=== PATIENT | male | born 1940 | race Caucasian/White ===

== ENCOUNTER → 2023-09-14 10:46 | Outpatient (REF) | payer MEDICARE, OTHER, SELFPAY | LOC: PAVMRI 10:46 | PROVIDERS: FAMILY PHYSICIAN Internal Medicine | DX: M48.062 Spinal stenosis, lumbar region with neurogenic claudication (principal) | CPT/HCPCS: 72158; A9575 ==

== ENCOUNTER → 2023-09-18 07:25 | Outpatient (REF) | payer MEDICARE, OTHER, SELFPAY | LOC: RAD 07:25 | PROVIDERS: ATTENDING PHYSICIAN Surgery Vascular Surgery; FAMILY PHYSICIAN Internal Medicine | DX: I71.40 Abdominal aortic aneurysm, without rupture, unspecified (principal) | CPT/HCPCS: 74174; Q9967 ==

== ENCOUNTER → 2023-09-23 08:53 | Outpatient (REF) | payer MEDICARE, OTHER, SELFPAY | LOC: RAD 08:53 | PROVIDERS: ATTENDING PHYSICIAN Surgery Vascular Surgery | DX: I65.23 Occlusion and stenosis of bilateral carotid arteries (principal) | CPT/HCPCS: 93880 ==

== ENCOUNTER → 2023-10-20 14:18 | Outpatient (REF) | payer MEDICARE, OTHER, SELFPAY | LOC: MRI 3T 14:18 | PROVIDERS: ATTENDING PHYSICIAN Neurological Surgery; FAMILY PHYSICIAN Internal Medicine | DX: M54.12 Radiculopathy, cervical region (principal) | CPT/HCPCS: 72141 ==

== ENCOUNTER → 2023-10-26 13:05 | Outpatient (REF) | payer MEDICARE, OTHER, SELFPAY | LOC: RAD 13:05 | PROVIDERS: ATTENDING PHYSICIAN Surgery Vascular Surgery; FAMILY PHYSICIAN Internal Medicine | DX: I65.29 Occlusion and stenosis of unspecified carotid artery (principal) | CPT/HCPCS: 70496; 70498; Q9967 ==

== ENCOUNTER 2023-12-11 17:17 | Inpatient (IN) | payer MEDICARE, OTHER, SELFPAY ==
[2023-12-11] VITALS (8 sets, daily range): BP systolic 95–164; BP diastolic 59–86; BMI 26.8; BMI 26.9
[2023-12-11 14:51] LABS: Hematocrit 35.9 % (39.0-52.0); INR 1.21; Mean Corp Hgb Conc. 33.4 g/dL (33.0-37.0); Mean Corpuscular Hgb 28.9 pg (27.0-31.0); Mean Corpuscular Volume 86.5 fL (80.0-94.0); PT 15.1 Sec (11.4-14.6); Platelet Count 13 10^3/uL (130-400); Red Blood Cell Count 4.15 10^6/uL (4.70-6.10); White Blood Cell Count 7.7 10^3/uL (4.8-10.8)
--- NOTE | 2023-12-11 15:14 | ED.GENMED ---
History of Present Illness
General
Chief Complaint: Abnormal Lab Value
Source: patient and physician (Dr. Nabil Cabral)
Exam Limitations: none
Time Seen by Provider: 12/11/23 15:14
History of Present Illness
History of Present Illness:
83-year-old male with history of neuropathy, CVA, aortic aneurysm stent on Plavix and aspirin, HLD, HTN, MVP, bilateral carotid artery stenosis, PVD, macular degeneration, skin cancer is sent here by Dr. Cabral for admission for thrombocytopenia.
His last platelet count was 9000. Patient had preoperative studies done for Dr. Ori Leo to do a carotid endarterectomy this coming Thursday however his platelet count came back low he was seen by Dr. Cabral this morning in the office, Dr. Cabral
spoke with the make up editor with [facility] who said she would forward all information to the Dr. Bello who would be on-call this weekend
The make up editor was adamant that the patient needs to be admitted for platelet transfusions and possible IV steroids and possible IV immunoglobulin. He is not actively bleeding, but has large numbers of ecchymosis over his forearms and across his
right flank. Feels that his most likely source of low platelet problem is his hydralazine medication, although he also is taking two other drugs that could be causing this amlodipine and Atorvastatin
Patient denies fever/chills, denies N/V/C/D. Denies chest pain or shortness of breath. He has had increasing bruising mainly of his upper extremities.
Past History
Past History
ED Past Medical History: HTN, Hypercholesterolemia and Other (Neuropathy of both legs)
ED Past Surgical History: Cardiac (Aortic stent 11/2022) and Orthopedic
Social History
Tobacco: Non-smoker
Alcohol: Occasional
Personal:
Living: with family
Review of Systems
Review of Systems
Allergies reviewed?: Yes
All Other Systems: ROS reviewed and negative except as documented in HPI and ROS
Constitutional: Denies fever, fatigue or chills
Respiratory: Denies trouble breathing
Cardiac: Denies chest pain
ABD/GI: Denies abdominal pain, nausea, vomiting, diarrhea, constipated or anorexia
: Denies dysuria or difficulty voiding
Musculoskeletal: Reports no symptoms
Skin: Reports other (Significant bruising both arms)
Neurological: Reports numbness (neuropathy both LE's)
Phy Exam
Physical Exam
Physical Exam:
GENERAL: No acute distress. A&Ox3.
CONSTITUTIONAL: Afebrile.
EYES: clear, conjunctivae normal
Neck: Supple
ENMT: moist mucus membranes, Pharynx nl
RESPIRATORY: Regular respirations, nonlabored, lungs clear.
CARDIOVASCULAR: Regular rate and rhythm, no murmurs, no rubs.
GI: Soft, nontender, normal BS
MUSCULOSKELETAL: Moves with ease. Well perfused.
SKIN: Warm, dry, pink, both arms with significant bruising
PSYCH: Normal mood and affect. Well kept, interactive and appropriate
NEUROLOGIC: Awake, alert and oriented. No focal neurological deficits
Course
Orders/Labs/Results
Orders:
Orders
12/11/23 14:32
Complete Blood Count/With Diff Urgent
Comprehensive Metabolic Panel Urgent
Prothrombin Time Urgent
12/11/23 Dinner
Regular
At Your Request: Full Participation
Does patient need a safe tray?: No
12/11/23 16:10
0.9% Sodium Chloride 1000 ml [Nss] 1,000 ml IV BOLUS
12/11/23 16:17
Consult Hematology [HEMATOLOGY CONSULT] Urgent
Consulting Provider: Theo Bello
Was physician already notified: Yes
Reason for consult: Thrombocytopenia
12/11/23 16:25
Type+Screen Urgent
12/11/23 17:05
Admit/Transfer Patient As Directed
Co-Sign Provider:
Level of Care: Inpatient admission
Assign to:: Medical/Surgical
Physician / Group: rachael
Diagnosis: drug induced ITP
Reason for Hospitalization: drug induced ITP
Expected length of stay greater than two midnights?: Yes
ELOS- Estimated Length of Stay in days: 2
I certify the patient meets the requirements for IP care: Yes
Code Status As Directed
Resuscitation Status: Full Code
12/11/23 17:40
Acetaminophen [Tylenol] 650 mg PO Q6HPRN PRN
Nitroglycerin Sublingual [Nitrostat (Sublingual)] 0.4 mg SL [id number] PRN
Tramadol HCl [Ultram] 50 mg PO DAILYPRN PRN
12/11/23 17:40
Blood Bank Products [* Blood Bank Products] Routine
Blood Bank Products: Platelets Leukoreduced
Quantity: 1
Transfuse Today: Yes
Reason: Thrombocytopenia
VTE Contraindication Routine
VTE Mechanical Device Contraindication: Medical Contraindication
Pharmocologic Contraindication: Medical Contraindication
Activity As Directed
Activity Level: As Tolerated
Vital Signs As Directed
Frequency: Per unit guidelines
12/11/23 20:00
Metoprolol Xl [Toprol Xl] 100 mg PO BID
Vit C/Vit E/Lutein/Min/[place]-3 [Ocuvite Softgel] 1 cap PO BID
12/12/23 06:00
Complete Blood Count/With Diff IN AM
Comprehensive Metabolic Panel IN AM
12/12/23 08:00
Amlodipine [Norvasc] 5 mg PO DAILY
Aspirin Chewable [Low Strength Aspirin] 81 mg PO DAILY
Atorvastatin [Lipitor] 10 mg PO Q48H
Clopidogrel Bisulfate [Plavix] 75 mg PO DAILY
Losartan/Hydrochlorothiazide [Hyzaar 100-25 Tablet] 1 tab PO DAILY
Multivitamin [Theragran] 1 tablet PO DAILY
Abnormal Lab Results
12/11/23
14:32
RBC 4.15 L 10^6/uL
(4.70-6.10)
Hgb 12.0 L g/dL
(13.0-18.0)
Hct 35.9 L %
(39.0-52.0)
Plt Count 13 L* D 10^3/uL
(130-400)
PT 15.1 H Sec
(11.4-14.6)
Chloride 108 H mmol/L
(98-107)
BUN 34 H mg/dl
(9-20)
Glucose 174 H mg/dl
(70-99)
Calcium 10.3 H mg/dl
(8.4-10.2)
12/11/23 14:32
12/11/23 14:32
Vital Signs
Initial and Last Documented VS:
Initial Vital Signs
Temp Pulse Resp BP Pulse Ox
98.9 F 85 17 95/59 97
12/11/23 14:19 12/11/23 14:19 12/11/23 14:19 12/11/23 14:19 12/11/23 14:19
Last Documented Vital Signs
Temp Pulse Resp BP Pulse Ox
97.2 F 61 18 164/86 99
12/11/23 17:43 12/11/23 17:43 12/11/23 17:43 12/11/23 17:43 12/11/23 17:43
MDM/Problems Addressed
Differential Diagnosis Includes:
Thrombocytopenia, medication Side effect,
MDM/Problems Addressed:
83-year-old male with history of neuropathy, CVA, aortic aneurysm stent on Plavix and aspirin, HLD, HTN, MVP, bilateral carotid artery stenosis, PVD, macular degeneration, skin cancer is sent here by Dr. Cabral for admission for thrombocytopenia.
His last platelet count was 9000. Patient had preoperative studies done for Dr. Ori Leo to do a carotid endarterectomy this coming Thursday however his platelet count came back low he was seen by Dr. Cabral this morning in the office, Dr. Cabral
spoke with the make up editor with [facility] who said she would forward all information to the Dr. Bello who would be on-call this weekend
The make up editor was adamant that the patient needs to be admitted for platelet transfusions and possible IV steroids and possible IV immunoglobulin. He is not actively bleeding, but has large numbers of ecchymosis over his forearms and across his
right flank. Feels that his most likely source of low platelet problem is his hydralazine medication, although he also is taking two other drugs that could be causing this amlodipine and Atorvastatin
Patient denies fever/chills, denies N/V/C/D. Denies chest pain or shortness of breath. He has had increasing bruising mainly of his upper extremities.
Afebrile, NAD, very pleasant
CBC: Platelet count 13 from 9 yesterday, was normal on 12/03/2022
CMP: BUN 34, creatinine 1.2, IV fluids ordered
Hospitalist notified of admission. Hematology consult in.
Pt is stable.
Chronic conditions affecting care: HTN
*Critical Care Note
Total Time (30-74mins, 75-104mins- exclusive of procedures): Not Applicable
ED Attending Note
-
Portions of this chart may have been created with voice recognition software.� Occasional wrong word or��sound alike� substitutions may have occurred due to the inherent limitations of voice recognition software.
Discharge Plan
Departure
Patient Disposition: Admit
Date of Disposition: 12/11/23
Time of Disposition: 16:16
Admit to: Med/Surg
Presentation/result/management discussed w/ accepting MD/DO: Hospitalist
Condition: Fair
Discharge Problem:
Thrombocytopenia
Interventions
Interventions:
*Risk Screen - Suicide Last Done: 12/11/23 14:23
*General Assessment Last Done: 12/11/23 14:23
*Neglect/Abuse Screening Last Done: 12/11/23 14:23
ED- Fall Risk Assessment Last Done: 12/11/23 15:47
*ED COVID-19 Vaccine History Last Done: 12/11/23 14:23
*Nursing Disposition Last Done: 12/11/23 17:40
Discharge Date and Time
Discharge Date/Time: 12/11/23 17:40
[2023-12-11 15:17] LABS: ALT (SGPT) 17 U/L (0-50); AST (SGOT) 29 U/L (17-59); Albumin 4.2 g/dl (3.5-5.0); Alkaline Phosphatase 71 U/L (38-126); Blood Urea Nitrogen 34 mg/dl (9-20); Calcium 10.3 mg/dl (8.4-10.2); Carbon Dioxide 24 mmol/L (22-30); Chloride 108 mmol/L (98-107); Glucose 174 mg/dl (70-99); Potassium 3.8 mmol/L (3.5-5.1); Sodium 139 mmol/L (135-145); Total Bilirubin 1.1 mg/dl (0.2-1.3); Total Protein 6.9 g/dl (6.3-8.2); eGFR > 60.00
--- NOTE | 2023-12-11 16:02 | EDRN ---
Monisha JAIMES in room w/pt at this time.
[2023-12-11 16:04] LABS: % Basophils 1.8 % (0-2); % Eosinophils 4.9 % (0-6); % Immature Granulocytes 0.3 % (0-0.5); % Lymphocytes 26.2 % (20.5-51.1); % Monocytes 7.4 % (1.7-9.3); % Neutrophils 59.4 % (42.2-75.2); Absolute Basophils 0.1 10^3/uL (0-0.2); Absolute Eosinophils 0.4 10^3/uL (0-0.7); Absolute Monocytes 0.6 10^3/uL (0.1-0.6); Absolute Neutrophils 4.6 10^3/uL (1.4-6.5); Nucleated Red Blood Cells % 0 % (-)
[2023-12-11] MEDS: NSS 1000 IV (16:26)
--- NOTE | 2023-12-11 17:00 | EDRN ---
Dr. Garza in room w/ pt.
--- NOTE | 2023-12-11 17:08 | HPS.HSE ---
Family Physician
-
Family Physician: Nabil Cortes
Chief Complaint
-
low platelets
History of Present Illness
83-year-old male past medical history of abdominal aortic aneurysm status post aortic stent last year, coronary artery disease, mitral valve prolapse, hypertension, hyperlipidemia, bilateral carotid artery stenosis, lumbar stenosis, macular
degeneration, peripheral neuropathy, peripheral vascular disease, total hip replacement, cataracts, presenting for low platelets outpatient labs.
Patient is undergoing left-sided CEA this upcoming Thursday had preoperative lab work which showed low platelets and he was recommended to come to the hospital. He has been bruising very easily for the past year since starting aspirin and Plavix
after abdominal aortic aneurysm stent was placed last year. He has had minor skin bleeding from cuts but denies any blood in the stool or black stool. He denies any recent illness.
He started hydralazine 6 months ago for blood pressure. That is only new medication. He denies any family history of bone marrow problems. His father had brain cancer and his mother had heart failure.
He denies smoking or alcohol use.
Medical History
Past Medical History
Past Medical History: Reports Other (abdominal aortic aneurysm status post aortic stent last year, coronary artery disease, mitral valve prolapse, hypertension, hyperlipidemia, bilateral carotid artery stenosis, lumbar stenosis, macular
degeneration, peripheral neuropathy, peripheral vascular disease, total hip replacement, cataracts,)
Past Surgical History: Reports Other (Abdominal aortic aneurysm stent, bilateral hip replacement, laminectomy, cataracts,)
Social History
Tobacco: Non-smoker
Alcohol: None
Drug: None
Family History
Family History: Other
Allergies / Home Medications
Allergies reflects when Allergies were last updated in [employer].
Home Medications with original date entered in [employer]
Allergy/Medication List:
Allergies
Allergy/AdvReac Type Severity Reaction Status Date / Time
atorvastatin [From Lipitor] Allergy sore legs Verified 12/07/23 09:23
rosuvastatin [From Crestor] Allergy leg pain Verified 12/07/23 09:23
Home Medications
nitroglycerin 0.4 mg sublingual tablet 0.4 mg sublingual [id number] PRN chest pain #25 tabs 03/11/19
atorvastatin 10 mg tablet 10 mg PO Q48H High Cholesterol 01/03/20
losartan 100 mg-hydrochlorothiazide 25 mg tablet 1 tab PO DAILY Blood Pressure 11/24/22
sthjmnaz-lc-uuonm 300 mcg-K 60 mcg-lycop 600 mcg-lutein 300 mcg tablet (Centrum Silver Men) 1 tab PO DAILY Supplement 11/24/22
aspirin 81 mg chewable tablet 81 mg PO DAILY #90 tabs 12/03/22
clopidogrel 75 mg tablet 75 mg PO DAILY #90 tabs 12/03/22
hydralazine 25 mg tablet 25 mg PO BID 12/07/23
tramadol 50 mg tablet 50 mg PO DAILYPRN PRN severe pain 12/07/23
vit C 250 mg-vit E 90 mg-zinc 40 mg-copper 1 [id number]-[id number] capsule (PreserVision AREDS-2) 1 tab PO BID 12/07/23
acetaminophen 325 mg tablet (Tylenol) 650 mg PO Q6HPRN PRN mild pain 12/11/23
amlodipine 5 mg tablet 5 mg PO DAILY 12/11/23
coenzyme Q10 100 mg capsule (CoQ-10) 100 mg PO Q48H 12/11/23
metoprolol succinate 100 mg tablet,extended release 24 hr 100 mg PO BID 12/11/23
Review of Systems
-
History Source: Patient
A 12 point ROS was completed and negative except as noted: Yes
Constitutional: Reports No Symptoms
EENT: Reports No Symptoms
Respiratory: Reports No Symptoms
Cardiac: Reports No Symptoms
Abdomen/GI: Reports No Symptoms
: Reports No Symptoms
Musculoskeletal: Reports No Symptoms
Skin: Reports See HPI
Neurological: Reports No Symptoms
Endocrine: Reports No Symptoms
Hematologic/Lymphatic: Reports No Symptoms
Psych: Reports No Symptoms
Physical Exam
Vital Signs
Vital Signs
Temp Pulse Resp BP Pulse Ox
98.9 F 63 15 141/85 98
12/11/23 14:19 12/11/23 17:00 12/11/23 17:00 12/11/23 17:00 12/11/23 16:45
Physical Exam
General: Well Developed, Well Nourished and No Apparent Distress
HEENT: NormoCephalic, Moist mucous membranes and Atraumatic
Respiratory: Clear
Cardiac: S1/S2 and Regular Rhythm; No Murmur or Rub
GI: Soft, Non Tender, Non Distended and Normal Bowel Sounds; No Organomegaly
Rectal: Deferred by Provider
Musculoskeletal: No Clubbing, No Cyanosis and No Edema
Skin: No Rash
Neuro: Nonfocal/grossly intact
Laboratory Results
-
12/11/23 14:32
12/11/23 14:32
Laboratory Results
PT 15.1 Sec (11.4-14.6) H 12/11/23 14:32
INR 1.21 12/11/23 14:32
Total Bilirubin 1.1 mg/dl (0.2-1.3) 12/11/23 14:32
AST 29 U/L (17-59) 12/11/23 14:32
ALT 17 U/L (0-50) 12/11/23 14:32
Alkaline Phosphatase 71 U/L (38-126) 12/11/23 14:32
Data Reviewed
-
Lab Data: Labs Reviewed by me
Old Records: Reviewed
Impression/Plan
-
IMPRESSION:
PLAN:
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
-Hold hydralazine
-1 unit platelet transfusion
-Hematology consulted
Abdominal aortic aneurysm status post stent last year
-Continue aspirin, Plavix, statin
Coronary artery disease
-Continue aspirin, Plavix, statin
Mitral valve prolapse
Essential hypertension
-Continue amlodipine, hydralazine, losartan/hydrochlorothiazide, metoprolol
Hyperlipidemia
Bilateral carotid artery stenosis
-Upcoming left-sided CEA this upcoming Thursday
Peripheral vascular disease
Lumbar stenosis
-Continue tramadol
Macular degeneration
Peripheral neuropathy
Cataracts
Full code
DVT prophylaxis�none
Regular diet
[2023-12-11] MEDS: OCUVITE SOFTGEL 1 CAP PO (19:42)
[2023-12-11] MEDS: TOPROL XL 100 MG PO (19:42)
--- NOTE | 2023-12-11 23:52 | PTCARENOTE ---
1 bag of Platelets infused. No reactions noted by patient backup administrator. Patient AAOx3, VSS. Call bee is within reach.
--- NOTE | 2023-12-12 07:29 | CON.ONC ---
Impression
Impression
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
Plan
Plan
Reviewed with patient and his who are very anxious about his severely low platelet count. I explained that this was found incidentally as part of a workup for upcoming surgery and could have been present for many months. There is a good
chance it could be related to hydralazine which was started last April. There is no specific test to prove ITP versus DITP.
My recommendation is to start dexamethasone 40 mg p.o. daily x 4 days starting as an inpatient. I have placed an order for this. He should also be given a PPI for PUD prophylaxis while on steroids.
Hydralazine has been discontinued.
I do not believe the patient requires inpatient monitoring as he has no evidence of critical bleeding and was told about bleeding precautions.
Monitor CBC weekly starting next week. Please give him a standing order prior to discharge.
Do not anticipate his platelet count should improve for approximately 5 to 10 days.
I anticipate patient should be able to be discharged later today with follow-up with his PCP next week as well as with hematology (my group). I gave him our new patient hotline phone number to schedule appointment.
Between dexamethasone and stopping hydralazine there is a good chance his platelet count will start to slowly rise. Obviously left CEA needs to be rescheduled until we know that the platelet count has normalized.
Patient History
History of Present Illness
CC: Thrombocytopenia found unexpectantly on blood test
Family Physician: Nabil Cortes
HPI:
83-year-old male past medical history of abdominal aortic aneurysm status post aortic stent 11/2022 on ASA + Plavix (Dr. Leo) who has chronic bruising since that surgery likely related to aspirin and Plavix. No specific change in his bruising
patterns. He was scheduled for upcoming left CEA this upcoming Thursday had preoperative lab work which showed low platelets = 9,000 he was recommended to come to the hospital. He has had minor skin bleeding from cuts but denies any blood in the
stool or black stool. He denies any recent viral type illness. No previous history of thrombocytopenia. Platelet count was normal as recently as April 2023 per his report. He also was started on hydralazine approximately 6 months ago for
hypertension.
Past-Medical/Surgical History
PMH: AAA s/p stent, coronary artery disease, mitral valve prolapse, hypertension, hyperlipidemia, bilateral carotid artery stenosis, lumbar stenosis, macular degeneration, peripheral neuropathy, peripheral vascular disease, total hip replacement,
cataracts, presenting for low platelets outpatient labs.
PSH: Abdominal aortic aneurysm stent, bilateral hip replacement, laminectomy, cataracts,
Social History
Tobacco: Non-smoker
Alcohol: None
Drug: None
Family History: He denies any family history of bone marrow problems. His father had brain cancer and his mother had heart failure.
Patient Medication
�Medication �Instructions �Recorded �Confirmed �Last Taken �Type
nitroglycerin 0.4 mg sublingual 0.4 mg sublingual [id number] PRN 03/11/19 12/11/23 Unknown Rx
tablet chest pain #25 tabs
atorvastatin 10 mg tablet 10 mg PO Q48H High Cholesterol 01/03/20 12/11/23 12/10/23 History
losartan 100 1 tab PO DAILY Blood Pressure 11/24/22 12/11/23 12/11/23 History
mg-hydrochlorothiazide 25 mg tablet
wsqligdi-fl-cymzp 300 mcg-K 60 1 tab PO DAILY Supplement 11/24/22 12/11/23 12/11/23 History
mcg-lycop 600 mcg-lutein 300 mcg
tablet (Centrum Silver Men)
aspirin 81 mg chewable tablet 81 mg PO DAILY #90 tabs 12/03/22 12/11/23 12/10/23 Rx
clopidogrel 75 mg tablet 75 mg PO DAILY #90 tabs 12/03/22 12/11/23 12/10/23 Rx
hydralazine 25 mg tablet 25 mg PO BID 12/07/23 12/11/23 12/11/23 History
tramadol 50 mg tablet 50 mg PO DAILYPRN PRN severe pain 12/07/23 12/11/23 Unknown History
vit C 250 mg-vit E 90 mg-zinc 40 1 tab PO BID 12/07/23 12/11/23 12/11/23 History
mg-copper 1 [id number]-[id number]
capsule (PreserVision AREDS-2)
acetaminophen 325 mg tablet 650 mg PO Q6HPRN PRN mild pain 12/11/23 12/11/23 Unknown History
(Tylenol)
amlodipine 5 mg tablet 5 mg PO DAILY 12/11/23 12/11/23 12/11/23 History
coenzyme Q10 100 mg capsule 100 mg PO Q48H 12/11/23 12/11/23 12/11/23 History
(CoQ-10)
metoprolol succinate 100 mg 100 mg PO BID 12/11/23 12/11/23 12/11/23 History
tablet,extended release 24 hr
Active Medications
Generic Name Dose Route Start Last Admin
Trade Name Freq PRN Reason Stop Dose Admin
Acetaminophen 650 mg 12/11/23 17:40
Acetaminophen 325 Mg Tablet PO 01/08/24 17:39
Q6HPRN PRN
mild pain
Amlodipine Besylate 5 mg 12/12/23 08:00
Amlodipine 5 Mg Tablet PO 01/09/24 07:59
DAILY DAVID
Aspirin 81 mg 12/12/23 08:00
Aspirin 81 Mg Chewable Tablet PO 01/09/24 07:59
DAILY DAVID
Atorvastatin Calcium 10 mg 12/12/23 08:00
Atorvastatin (Lipitor) 10 Mg Tablet PO 01/09/24 07:59
Q48H DAVID
Clopidogrel Bisulfate 75 mg 12/12/23 08:00
Clopidogrel 75 Mg Tablet PO 01/09/24 07:59
DAILY DAVID
HCTZ/Losartan Potassium 1 tab 12/12/23 08:00
Losartan (100 Mg)/Hydrochlorothiazide (25 Mg) Tablet PO 01/09/24 07:59
DAILY DAVID
Metoprolol Succinate 100 mg 12/11/23 20:00 12/11/23 19:42
Metoprolol 100 Mg Extended Release Tablet PO 01/08/24 19:59 100 mg
BID DAVID Administration
Multivitamins Therapeutic 1 tablet 12/12/23 08:00
Multivitamin Tablet PO 01/09/24 07:59
DAILY DAVID
Nitroglycerin 0.4 mg 12/11/23 17:40
Nitroglycerin 0.4 Mg Sl Tablet SL 01/08/24 17:39
[id number] PRN
chest pain
Sodium Chloride 0 flush 12/11/23 18:00
Sodium Chloride 0.9% (Flush) Syringe IV 01/08/24 17:59
PER PROTOCOL DAVID
Tramadol HCl 50 mg 12/11/23 17:40
Tramadol Hcl 50 Mg Tablet PO 01/08/24 17:39
DAILYPRN PRN
severe pain
Vitamin C/Vitamin E 1 cap 12/11/23 20:00 12/11/23 19:42
Vit C/Vit E/Lutein/Min/[place]-3 (Ocuvite) Capsule PO 01/08/24 19:59 1 cap
BID DAVID Administration
Physical Exam
-
General: Well Developed, Well Nourished and No Apparent Distress
HEENT: Negative Jaundice
Cardiology: S1 and S2
Pulmonary: Clear
GI: Soft
Musculoskeletal: No Edema
Skin: No Ecchymosis (Multiple areas of ecchymosis)
Hematologic / Lymphatic: No Lymphadenopathy
Psych: Anxious
Labs
Lab Results
WBC 7.7 10^3/uL (4.8-10.8) 12/11/23 14:32
RBC 4.15 10^6/uL (4.70-6.10) L 12/11/23 14:32
Hgb 12.0 g/dL (13.0-18.0) L 12/11/23 14:32
Hct 35.9 % (39.0-52.0) L 12/11/23 14:32
MCV 86.5 fL (80.0-94.0) 12/11/23 14:
MCH 28.9 pg (27.0-31.0) 12/11/23 14:
MCHC 33.4 g/dL (33.0-37.0) 12/11/23 14:
RDW 14.0 % (11.5-14.5) 12/11/23 14:
Plt Count 13 10^3/uL (130-400) L* D 12/11/23 14:
MPV fL (7.4-10.4) 12/11/23 14:
Abs Immat Gran (auto) 0.0 10^3/uL (0-0.05) 12/11/23 14:
Absolute Neuts (auto) 4.6 10^3/uL (1.4-6.5) 12/11/23 14:
Absolute Lymphs (auto) 2.0 10^3/uL (1.2-3.4) 12/11/23 14:
Absolute Monos (auto) 0.6 10^3/uL (0.1-0.6) 12/11/23 14:
Absolute Eos (auto) 0.4 10^3/uL (0-0.7) 12/11/23 14:
Absolute Basos (auto) 0.1 10^3/uL (0-0.2) 12/11/23 14:
Immature Gran % 0.3 % (0-0.5) 12/11/23 14:
Neutrophils % 59.4 % (42.2-75.2) 12/11/23 14:
Lymphocytes % 26.2 % (20.5-51.1) 12/11/23 14:
Monocytes % 7.4 % (1.7-9.3) 12/11/23 14:
Eosinophils % 4.9 % (0-6) 12/11/23 14:32
Basophils % 1.8 % (0-2) 12/11/23 14:32
Creatinine 1.2 mg/dL (0.7-1.3) 12/11/23 14:32
Vital Signs
Vital Signs
Temp Pulse Resp BP Pulse Ox
98.3 F 64 20 144/80 97
12/11/23 23:39 12/11/23 23:39 12/11/23 23:39 12/11/23 23:39 12/11/23 23:39
[2023-12-12 07:55] VITALS: BP 139/74
--- NOTE | 2023-12-12 07:59 | W.PN.HOSP.TC ---
Addendum entered and electronically signed by Benedict Day MD 12/12/23 21:31:
Attending Addendum:
I saw and evaluated the patient. I reviewed the resident�s note and agree with findings and plan as documented in the resident�s note. Sub: no complaints. easy brusing, no new bleeding no abd pain fernandez cp, 'im good to go home' Full 12 point ROS
reviewed and negative except as documented Exam: Vitals reviewed in chart GEN-NAD heart RRR lungs clear abd soft LE no edema Skin diffues bruising throughout body. chroninc appearing no gingival bleeding
Plan:
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
-Hold hydralazine
-s/p 1 unit platelet transfusion 13->9 likely from destruction
- no indication for repeat plt trans
- dexamethasone x 4 days and repeat CBC 12/15- script given verified with ONC
- advised to rest and avoid contact related activities
- return to ED STAT if bleeding
- patient expressed understanding
- DC HOME
Abdominal aortic aneurysm status post stent last year
-Continue aspirin, Plavix, statin
Coronary artery disease
-Continue aspirin, Plavix, statin
Mitral valve prolapse
Essential hypertension
-Continue amlodipine, hydralazine, losartan/hydrochlorothiazide, metoprolol
Hyperlipidemia
Bilateral carotid artery stenosis
-Upcoming left-sided CEA this upcoming Thursday
Peripheral vascular disease
Lumbar stenosis
-Continue tramadol
Macular degeneration
Peripheral neuropathy
Cataracts
Full code
DVT prophylaxis�none
Regular diet
Dispo DC home d/w ONC confirmed plan
Time spent coordinating care, DC planning, review of DC plan of care with resident, transition of care, review of records, med rec/scripts sent electronically, consults, notes, d/w consultants, nursing, family, onc and CM� 37 mins
Original Note:
Today's Communication/Plan
-
.
Assessment / Plan
Assessment / Plan
Patient is an 83-year-old male with past medical history of abdominal aortic aneurysm, coronary artery disease, mitral valve prolapse, hypertension, hyperlipidemia, bilateral carotid artery stenosis, lumbar stenosis, macular degeneration, peripheral
neuropathy, peripheral vascular disease, total hip replacement, cataracts presenting for low platelets on lab work.
1. 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
-Hold hydralazine
-1 unit platelet transfused
-Hematology consulted. Input appreciated
- Per hematology, patient started on dexamethasone 40 mg p.o. daily for 4 days. PPI for PUD prophylaxis.
- Script given for OP labs
- follow-up with PCP next week and hematology. Reschedule left CEA for after platelet count has normalized
2. Abdominal aortic aneurysm s/p stent 2022
-Continue aspirin, Plavix, statin
3. Coronary artery disease
-Continue aspirin, Plavix, statin
History of MVP
5. Essential hypertension
-Hydralazine held
-Continue amlodipine, losartan/hydrochlorothiazide, metoprolol
6. Hyperlipidemia
-Continue statin
7. Bilateral carotid artery stenosis
-Upcoming left-sided CEA this coming Thursday
-Reschedule until platelet count normalized per hematology recommendations
History of PVD
8. Lumbar spinal
-Continue tramadol
History of macular degeneration
History of peripheral neuropathy
History of cataracts
Full code
DVT prophylaxis-none
Regular diet
Anticipated Discharge: Today
Subjective/Interval History
-
Date of Service: December 12, 2023
Patient is an 83-year-old male with past medical history of abdominal aortic aneurysm, coronary artery disease, mitral valve prolapse, hypertension, hyperlipidemia, bilateral carotid artery stenosis, lumbar stenosis, macular degeneration, peripheral
neuropathy, peripheral vascular disease, total hip replacement, cataracts presenting for low platelets on lab work. patient reports feeling comfortable today. He reports no symptoms. Noticed shortness of breath, chest pain, nausea, vomiting,
diarrhea, numbness or tingling in extremities or new symptoms.
Objective Data
-
Labs:
Laboratory Results
12/12/23
06:00
WBC Pending
Hgb Pending
Hct Pending
Plt Count Pending
Sodium Pending
Potassium Pending
Chloride Pending
Carbon Dioxide Pending
BUN Pending
Creatinine Pending
Glucose Pending
Calcium Pending
Total Bilirubin Pending
AST Pending
ALT Pending
Alkaline Phosphatase Pending
Vital Signs:
Vital Signs
Temp Pulse Resp BP Pulse Ox
98.3 F 64 20 144/80 97
12/11/23 23:39 12/11/23 23:39 12/11/23 23:39 12/11/23 23:39 12/11/23 23:39
I&O
12/11/23 12/12/23 12/13/23
06:59 06:59 06:59
Intake Total 261 / 1002 741 / 741
Balance 261 / 1002 741 / 741
Review of Systems
-
History Source: Patient
All other systems: Reviewed and negative
Physical Exam
-
General: Well Developed, Well Nourished and No Apparent Distress
HEENT: Normocephalic and Atraumatic
Respiratory: Clear to Auscultation
Cardiac: Regular Rhythm and S1/S2
GI: Soft, Nontender and Nondistended
Musculoskeletal: No Clubbing, No Cyanosis, No Edema and Other (Bruising)
Skin: Warm and Dry
Neuro: Awake and Alert
Psych: Calm
Data Reviewed
-
Total Time Spent with Patient (in minutes): 30
Labs: Labs Reviewed by me and Discussed with Physician
Old Records: Reviewed
[2023-12-12] MEDS: TOPROL XL 100 MG PO (08:36)
[2023-12-12] MEDS: LOW STRENGTH ASPIRIN 81 MG PO (08:36)
[2023-12-12] MEDS: HYZAAR 100-25 TABLET 1 TAB PO (08:36)
[2023-12-12] MEDS: PLAVIX 75 MG PO (08:36)
[2023-12-12] MEDS: OCUVITE SOFTGEL 1 CAP PO (08:36)
[2023-12-12] MEDS: DECADRON 40 MG PO (08:36)
[2023-12-12] MEDS: THERAGRAN 1 TABLET PO (08:36)
[2023-12-12] MEDS: NORVASC 5 MG PO (08:36)
[2023-12-12] MEDS: PROTONIX 40 MG PO (09:09)
[2023-12-12 09:35] LABS: ALT (SGPT) 15 U/L (0-50); AST (SGOT) 25 U/L (17-59); Albumin 3.7 g/dl (3.5-5.0); Alkaline Phosphatase 64 U/L (38-126); Blood Urea Nitrogen 31 mg/dl (9-20); Calcium 9.9 mg/dl (8.4-10.2); Carbon Dioxide 26 mmol/L (22-30); Chloride 108 mmol/L (98-107); Estimated Creatinine Clearance 65 ml/min; Glucose 95 mg/dl (70-99); Potassium 3.7 mmol/L (3.5-5.1); Sodium 138 mmol/L (135-145); Total Bilirubin 0.9 mg/dl (0.2-1.3); Total Protein 6.2 g/dl (6.3-8.2); eGFR > 60.00
[2023-12-12 10:41] LABS: Platelet Count 9 10^3/uL (130-400)
[2023-12-12 11:16] LABS: Red Blood Cell Count 3.88 10^6/uL (4.70-6.10); White Blood Cell Count 5.9 10^3/uL (4.8-10.8)
[2023-12-12 11:17] LABS: Hemoglobin 11.1 g/dL (13.0-18.0); Mean Corpuscular Hgb 28.6 pg (27.0-31.0); Mean Corpuscular Volume 87.6 fL (80.0-94.0)
[2023-12-12 11:18] LABS: Mean Corp Hgb Conc. 32.6 g/dL (33.0-37.0); Red Cell Dist. Width 13.7 % (11.5-14.5)
[2023-12-12 11:20] LABS: % Eosinophils 8.5 % (0-6); % Lymphocytes 25.2 % (20.5-51.1); % Monocytes 11.2 % (1.7-9.3); % Neutrophils 53.1 % (42.2-75.2)
[2023-12-12 11:21] LABS: % Basophils 1.7 % (0-2); % Immature Granulocytes 0.3 % (0-0.5); Absolute Lymphocytes 1.5 10^3/uL (1.2-3.4); Absolute Monocytes 0.7 10^3/uL (0.1-0.6); Absolute Neutrophils 3.1 10^3/uL (1.4-6.5)
[2023-12-12 11:22] LABS: Absolute Basophils 0.1 10^3/uL (0-0.2); Absolute Eosinophils 0.5 10^3/uL (0-0.7); Nucleated Red Blood Cells % 0 % (-)
--- NOTE | 2023-12-12 12:06 | PTCARENOTE ---
Patient educated on bleeding precautions - extra care when walking and being mindful of environment,rying to avoid bumping extremities, using a soft bristle toothbrush and to not strain when having bowel movements. Educated on need to call MD if
acute bleeding noted. Educated on new medications - decadron and protonix. Patient verbalizes understanding of all teaching.
--- NOTE | 2023-12-12 14:05 | PTCARENOTE ---
Peripheral IV removed. Reviewed discharge instructions with patient. Patient verbalizes understanding of all instructions. Patient awaiting his to arrive transport home.
[2023-12-12 14:13] VITALS: BP 160/85
--- NOTE | 2023-12-12 15:27 | CM ---
CM attempted to complete IA this afternoon. Pt was admitted late yesterday, discharged today prior to being seen.
Discharged to home with no needs identified after review with RN.
PCP: Ariel Cortes
Pharmacy: [facility] in [place]
--- NOTE | 2023-12-12 17:33 | W.DCSUMMARY ---
Addendum entered and electronically signed by Benedict Day MD 12/12/23 21:32:
Read, reviewed, and agree. See same day progress note for additional details. DC plan in place and verified with patient at great length.
Félix Day MD
Original Note:
Documented by User: Humberto Kearns DO, Resident 12/12/23 17:43
Discharge Summary
Discharge Data
Date of Admission: 12/11/23
Date of Discharge: 12/12/23
Total time spent discharging patient (in min): 45
-
Pending Results: No
Hospital Course
Patient is an 83-year-old male with past medical history of abdominal aortic aneurysm, coronary artery disease, mitral valve prolapse, hypertension, hyperlipidemia, bilateral carotid artery stenosis, lumbar stenosis, macular degeneration, peripheral
neuropathy, peripheral vascular disease, total hip replacement, cataracts presenting for low platelets on lab work. Low platelet was found during preoperative lab work for left-sided CEA initially scheduled this Thursday. Patient reported he had
been easily bruising for the last year since starting aspirin and Plavix after AAA stent was placed. Patient had recently started hydralazine 6 months ago for blood pressure. Hydralazine was held and 1 unit of platelets was transfused. Per
hematology consultation, patient was started on dexamethasone 40 mg in hospital and PPI prophylaxis for peptic ulcer disease. Recommendations made to continue to monitor CBC outpatient and follow-up with PCP and hematology later next week. Left
CEA to be rescheduled by vascular.
1. 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
-Continue to hold hydralazine. Patient started on dexamethasone 40 mg p.o. daily for 4 days. PPI for PUD prophylaxis.
- Script given for OP labs
- follow-up with PCP next week and hematology. Reschedule left CEA for after platelet count has normalized
2. Abdominal aortic aneurysm s/p stent 2022
-Continue aspirin, Plavix, statin
3. Coronary artery disease
-Continue aspirin, Plavix, statin
History of MVP
5. Essential hypertension
-Hydralazine held
-Continue amlodipine, losartan/hydrochlorothiazide, metoprolol
6. Hyperlipidemia
-Continue statin
7. Bilateral carotid artery stenosis
-Upcoming left-sided CEA this coming Thursday
-Reschedule until platelet count normalized per hematology recommendations
History of PVD
8. Lumbar spinal
-Continue tramadol
History of macular degeneration
History of peripheral neuropathy
History of cataracts
Discharge Plan
-
Patient Disposition: Home (Routine Discharge)
Discharge Diagnosis/Procedures: drug induced ITP
Condition: Fair
Diet: No restrictions
Activity: Other activity
Additional Activity: please be careful with ambulation and bumping into objects until Plt normalizes
Driving Restrictions: As prior to admission
Bathing Restrictions: None
Blood Work: please repeat CBC on Thursday/
Referrals:
Ariel Cortes MD [Family Provider] - in two to three days
Additional Discharge Medication Instructions: please take dexamethasone for 4 days. Please take PPI for at least 4 days, up to 7 days.
Prescriptions:
New
pantoprazole 40 mg Tablet,Delayed Release (Dr/Ec)
40 mg PO DAILY 7 Days Qty: 7 0RF
dexamethasone 20 mg tablet
40 mg PO DAILY 4 Days Qty: 8 0RF
Continued
nitroglycerin 0.4 MG tablet, sublingual
0.4 mg sublingual [id number] PRN (Reason: chest pain) Qty: 25 10RF
atorvastatin 10 MG tablet
10 mg PO Q48H
losartan-hydrochlorothiazide 100-25 mg Tablet
1 tab PO DAILY
Centrum Silver Men [phone] mcg Tablet
1 tab PO DAILY
clopidogrel 75 mg Tablet
75 mg PO DAILY Qty: 90 0RF
aspirin 81 mg Tablet,Chewable
81 mg PO DAILY Qty: 90 0RF
tramadol 50 mg Tablet
50 mg PO DAILYPRN PRN (Reason: severe pain)
PreserVision AREDS-2 250-90-40-1 mg Capsule
1 tab PO BID
acetaminophen [Tylenol] 325 mg Tablet
650 mg PO Q6HPRN PRN (Reason: mild pain)
metoprolol succinate 100 mg Tablet Extended Release 24 Hr
100 mg PO BID
amlodipine 5 mg Tablet
5 mg PO DAILY
coenzyme Q10 [CoQ-10] 100 mg Capsule
100 mg PO Q48H
Patient Comments:
12/11/23: Patient takes on days he does not take Lipitor
Discontinued
hydralazine 25 mg Tablet
25 mg PO BID
Discharge Orders:
Discharge Patient (As Directed); Ordered 12/12/23
Ordered By: Humberto Kearns
Discharge Date and Time
Discharge Date/Time: 12/12/23 14:33
Print Language: OCCITAN

Documented by User: Benedict Day MD 12/12/23 21:25
Discharge Summary
Discharge Data
Date of Admission: 12/11/23
Date of Discharge: 12/12/23
Discharge Plan
-
Patient Disposition: Home (Routine Discharge)
Discharge Diagnosis/Procedures: drug induced ITP
Condition: Fair
Diet: No restrictions
Activity: Other activity
Additional Activity: please be careful with ambulation and bumping into objects until Plt normalizes
Driving Restrictions: As prior to admission
Bathing Restrictions: None
Blood Work: please repeat CBC on Thursday/
Referrals:
Ariel Cortes MD [Family Provider] - in two to three days
Additional Discharge Medication Instructions: please take dexamethasone for 4 days. Please take PPI for at least 4 days, up to 7 days.
Prescriptions:
New
pantoprazole 40 mg Tablet,Delayed Release (Dr/Ec)
40 mg PO DAILY 7 Days Qty: 7 0RF
dexamethasone 20 mg tablet
40 mg PO DAILY 4 Days Qty: 8 0RF
Continued
nitroglycerin 0.4 MG tablet, sublingual
0.4 mg sublingual [id number] PRN (Reason: chest pain) Qty: 25 10RF
atorvastatin 10 MG tablet
10 mg PO Q48H
losartan-hydrochlorothiazide 100-25 mg Tablet
1 tab PO DAILY
Centrum Silver Men [phone] mcg Tablet
1 tab PO DAILY
clopidogrel 75 mg Tablet
75 mg PO DAILY Qty: 90 0RF
aspirin 81 mg Tablet,Chewable
81 mg PO DAILY Qty: 90 0RF
tramadol 50 mg Tablet
50 mg PO DAILYPRN PRN (Reason: severe pain)
PreserVision AREDS-2 250-90-40-1 mg Capsule
1 tab PO BID
acetaminophen [Tylenol] 325 mg Tablet
650 mg PO Q6HPRN PRN (Reason: mild pain)
metoprolol succinate 100 mg Tablet Extended Release 24 Hr
100 mg PO BID
amlodipine 5 mg Tablet
5 mg PO DAILY
coenzyme Q10 [CoQ-10] 100 mg Capsule
100 mg PO Q48H
Patient Comments:
12/11/23: Patient takes on days he does not take Lipitor
Discontinued
hydralazine 25 mg Tablet
25 mg PO BID
Discharge Orders:
Discharge Patient (As Directed); Ordered 12/12/23
Ordered By: Humberto Kearns
Discharge Date and Time
Discharge Date/Time: 12/12/23 14:33
Print Language: OCCITAN
== END 2023-12-12 14:33 | disposition home or self-care (01) | DRG 813 ==
LOC: 4 EAST ACU 17:17
PROVIDERS: Emergency Medicine; ADMITTING PHYSICIAN Hospitalist; ATTENDING PHYSICIAN Family Medicine; CONSULT PHYSICIAN Internal Medicine Hematology & Oncology; EMERGENCY PHYSICIAN Emergency Medicine; FAMILY PHYSICIAN Internal Medicine
PROC: 30233R1 Transfusion of Nonautologous Platelets into Peripheral Vein, Percutaneous Approach (ICD-10-PCS; 2023-12-11)
DX: D69.3 Immune thrombocytopenic purpura (principal); G62.9 Polyneuropathy, unspecified; H35.30 Unspecified macular degeneration; I10 Essential (primary) hypertension; I34.1 Nonrheumatic mitral (valve) prolapse; I65.23 Occlusion and stenosis of bilateral carotid arteries; D69.59 Other secondary thrombocytopenia; I73.9 Peripheral vascular disease, unspecified; I71.9 Aortic aneurysm of unspecified site, without rupture; I25.10 Atherosclerotic heart disease of native coronary artery without angina pectoris; I71.40 Abdominal aortic aneurysm, without rupture, unspecified; M48.061 Spinal stenosis, lumbar region without neurogenic claudication; H26.9 Unspecified cataract; E78.00 Pure hypercholesterolemia, unspecified; Z96.643 Presence of artificial hip joint, bilateral; Z86.73 Personal history of transient ischemic attack (TIA), and cerebral infarction without residual deficits; Z79.82 Long term (current) use of aspirin; Z79.02 Long term (current) use of antithrombotics/antiplatelets; Z85.828 Personal history of other malignant neoplasm of skin; Z86.79 Personal history of other diseases of the circulatory system; Z80.8 Family history of malignant neoplasm of other organs or systems; Z82.49 Family history of ischemic heart disease and other diseases of the circulatory system; Z88.8 Allergy status to other drugs, medicaments and biological substances
CPT/HCPCS: 36415; 71046; 80048; 80053; 85025; 85610; 85730; 86850; 86900; 86901; 87070; 93005; 99285; P9073

== ENCOUNTER 2024-03-18 12:55 | Inpatient (IN) | payer MEDICARE, OTHER, SELFPAY ==
[2024-03-15 09:06] VITALS: BMI 27.8
[2024-03-15 09:26] LABS: % Basophils 1.6 % (0-2); % Eosinophils 6.6 % (0-6); % Immature Granulocytes 1.4 % (0-0.5); % Lymphocytes 22.1 % (20.5-51.1); % Monocytes 9.2 % (1.7-9.3); % Neutrophils 59.1 % (42.2-75.2); Absolute Basophils 0.1 10^3/uL (0-0.2); Absolute Eosinophils 0.5 10^3/uL (0-0.7); Absolute Immature Granulocytes 0.1 10^3/uL (0-0.05); Absolute Lymphocytes 1.5 10^3/uL (1.2-3.4); Absolute Monocytes 0.6 10^3/uL (0.1-0.6); Absolute Neutrophils 4.1 10^3/uL (1.4-6.5); Hematocrit 42.6 % (39.0-52.0); Hemoglobin 14.3 g/dL (13.0-18.0); Mean Corp Hgb Conc. 33.6 g/dL (33.0-37.0); Mean Corpuscular Hgb 28.3 pg (27.0-31.0); Mean Corpuscular Volume 84.2 fL (80.0-94.0); Mean Platelet Volume 8.9 fL (7.4-10.4); Nucleated Red Blood Cells % 0 % (-); Platelet Count 157 10^3/uL (130-400); Red Blood Cell Count 5.06 10^6/uL (4.70-6.10); Red Cell Dist. Width 15.6 % (11.5-14.5)
[2024-03-15 09:39] LABS: APTT 31.2 Sec (23.4-35.0); INR 1.05; PT 13.5 Sec (11.4-14.6)
[2024-03-15 10:34] LABS: Blood Urea Nitrogen 31 mg/dl (9-20); Carbon Dioxide 28 mmol/L (22-30); Chloride 104 mmol/L (98-107); Estimated Creatinine Clearance 72 ml/min; Glucose 107 mg/dl (70-99); Potassium 4.4 mmol/L (3.5-5.1); Sodium 141 mmol/L (135-145); eGFR > 60.00
[2024-03-18] VITALS (15 sets, daily range): BP systolic 118–149; BP diastolic 65–91; BMI 27.1
[2024-03-18] MEDS: PERIDEX 0.12% ORAL RINSE 15 ML PO (07:57)
[2024-03-18] MEDS: BACTROBAN NASAL 1 GRAM NASAL (07:58)
--- NOTE | 2024-03-18 08:32 | W.SUR.PREOP ---
Pre-Operative Surgical Note
-
I have examined this patient prior to the performance of the scheduled procedure.
The patient's condition is unchanged from the time of the current History and
Physical and the patient is able to undergo the scheduled procedure.
[2024-03-18 09:46] LABS: ACT-LR - POC 342 Seconds (116-155)
[2024-03-18 10:23] LABS: ACT-LR - POC 273 Seconds (116-155)
--- NOTE | 2024-03-18 11:10 | W.IMMPOSTOP ---
Surgical Immed Post Op Note
-
Primary Surgeon: Dr. Ori Leo III, MD
Assisting Surgeon: Seun Campos MD, PhD (PGY-2)
Pre-op Diagnosis: Left carotid stenosis
Post-op Diagnosis: Left carotid stenosis
Procedure Performed: Left carotid endarterectomy with bovine patch angioplasty
Anesthesia Type: General
Specimen / Cultures: None
Estimated Blood Loss: 50cc
Complications: None
Operative Findings: The patient was brought to the OR and placed in the supine position. Following anesthesia induction and neuromonitoring, ultrasound was used to map the course of the left common carotid, bifurcation, and internal common carotid.
Incision was made and electrocautery dissection was carried out through the platysma and fascial layers. The carotid sheath was entered and sharp dissection was performed to expose the common carotid artery. Proximal control was obtained with a blue
vessel loop. The dissection was carried out to expose the external and internal carotid arteries and distal control was obtained around these vessels. Arteriotomy was made and a freer was used to perform an endarterectomy. A bovine pericardial patch
was brought to the field and patch angioplasty was performed with running 6-0 suture. Doppler signal was performed and confirmed excellent flow in the internal and external carotid arteries. The wound bed was irrigated and hemostasis achieved. The
tissues were closed in three layers and skin glue on the surface. At the conclusion of the case the patient demonstrated no new neurologic deficits with preserved CN12, facial/upper/lower extremity motor function bilaterally. The patient was
transported to the PACU in stable condition.
--- NOTE | 2024-03-18 11:11 | W.PN.UPDATE ---
Update Note
Progress Note Update
Patient to be admitted post op from carotid endarterectomy. This is NOT an outpatient surgery.
--- NOTE | 2024-03-18 11:12 | OR.RPT ---
Operative Report
Operative Report
Date of Operation: 03/18/2024
Pre Op Diagnosis: Asymptomatic high-grade stenosis left carotid artery
Post Op Diagnosis: Asymptomatic high-grade stenosis left carotid artery
Procedure: LEFT carotid endarterectomy with patch angioplasty using bovine pericardium
Surgeon: Ori Leo III, MD
Medical Administrative Technician: Seun Campos MD PhD, PGY2
Anesthesia: General
Complications: None
History and Indications for Procedure: 83-year-old male with high-grade stenosis of his left carotid artery, asymptomatic
Procedure in Detail: Donte Macedo was correctly identified and placed supine on the operating table. After adequate induction of anesthesia the left neck was positioned, prepped and draped in the usual sterile fashion. Preoperative antibiotics were
administered. A timeout procedure was performed with the nursing and anesthesia staff confirming the patients identity as well as the nature and laterality of the procedure.
The carotid bifurcation was marked with ultrasound at the beginning of the case. The incision was planned accordingly. An incision was made along the anterior border of the left sternocleidomastoid muscle. Electrocautery was used to divide the
subcutaneous tissue and platysma. The carotid sheath was entered with sharp dissection. The internal jugular vein was retracted laterally. The vagus nerve was identified and protected throughout the case. The common carotid artery was identified at
the base of this incision and carefully encircled with a vessel loop. The patient was systemically heparinized. The dissection was continued distally towards the carotid bifurcation. The facial vein was skeletonized, ligated and divided between ties
and clips. The proximal external carotid artery was encircled with a vessel loop. The distal internal carotid artery was encircled with a vessel loop at a soft spot on the artery beyond the plaque.
The internal vessel loop was secured followed by the common and external. An arteriotomy was made on the distal common carotid artery with an 11-blade. This was extended proximally and distally with Almanza scissors. The arteriotomy was extended
distally through the plaque to an area of normal appearing internal carotid artery. The distal vessel loop was replaced with a short tip hockey-stick type vascular clamp. An endarterectomy was performed with a Oxford elevator in the standard
fashion. The proximal extent of the plaque was transected with scissors. The distal end of the plaque in the internal carotid artery feathered very nicely with no distal intimal flap identified. The plaque extending into the external carotid artery
was everted. Once the plaque was fully removed the endarterectomy plane was irrigated with heparinized saline and any loose fronds of tissue were removed. A pre-cut piece of bovine pericardium was sewn in place using a running 6-0 Prolene suture.
Prior to the completion of the patch the common carotid was allowed to forward bleed and the external was allowed to back bleed. The area under the patch was irrigated with heparinized saline to remove any potential thrombus or debris. The
anastomosis was completed.
The external vessel loop was released first, followed by the common and then the internal. There was an excellent pulse in the distal internal carotid artery. An excellent quality Doppler signal in the distal internal carotid artery was also
confirmed. The patch suture line was closely inspected for hemostasis and was achieved. Protamine was administered. Hemostasis was achieved in the wound bed. The wound was irrigated with saline solution.
The wound was then closed in layers. Sterile dressings were applied. The patient awoke from anesthesia with no immediate neuro deficits and was taken to the PACU in stable condition.
Attestation: I was present and responsible for the entire procedure
Signed:
Ori Leo III, MD
[facility] Vascular Surgery
[phone] (juce)
[2024-03-18 12:06] LABS: Blood Urea Nitrogen 27 mg/dl (9-20); Calcium 9.3 mg/dl (8.4-10.2); Carbon Dioxide 26 mmol/L (22-30); Chloride 106 mmol/L (98-107); Estimated Creatinine Clearance 72 ml/min; Glucose 126 mg/dl (70-99); Sodium 141 mmol/L (135-145); eGFR > 60.00
[2024-03-18 12:40] LABS: Hematocrit 36.4 % (39.0-52.0); Hemoglobin 12.5 g/dL (13.0-18.0); Mean Corp Hgb Conc. 34.3 g/dL (33.0-37.0); Mean Corpuscular Hgb 28.7 pg (27.0-31.0); Mean Corpuscular Volume 83.7 fL (80.0-94.0); Mean Platelet Volume 9.4 fL (7.4-10.4); Platelet Count 116 10^3/uL (130-400); Red Blood Cell Count 4.35 10^6/uL (4.70-6.10); Red Cell Dist. Width 15.6 % (11.5-14.5)
[2024-03-18] MEDS: ROXICODONE 5 MG PO (13:24)
[2024-03-18] MEDS: NSS 1000 IV ×2 (13:30→23:07)
--- NOTE | 2024-03-18 13:30 | PTCARENOTE ---
Pt arrived via bed from PACU into Rm [id number] at 1245. Pt AAOx3 on arrival. MAEW. Following commands appropriately. Lt neck incision noted- well approximated, no edema, no ecchymosis. Ice pack to site x20min q2hr. Pt's smile symmetrical, tongue midline,
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 Pt left foot strength slightly less than Rt. Per pt this his 'normal' for him due to 'neuropathy' and following TIA in the past. Pt reports using a cane at times to ambulate. Lt radial [place] transduced, leveled, and
zero-balanced. Waveform wnl. Pt on RA w/ POx 98-99%. Denies SOB. Reports 11/17 'ache' to Lt neck- medicated as requested by pt. Physical assessment and admissions questions completed as documented. Orientation to room/ICU/plan of care/use of call
cristal provided to pt. Pt's to room to visit pt- updated on pt's present condition and plan of care. Call cristal w/in pt reach and safe environment maintained.
--- NOTE | 2024-03-18 15:34 | PTCARENOTE ---
Pt attempted to void- 25ml output. Bladder scan completed= 595ml. TT to Trini JAIMES and order for straight cath received. Pt straight cath completed for 650ml clear gigi urine. Pt tolerated well. Dr Leo in to see pt. No new orders received. Pt
requesting quietly- tolerated advanced diet and currently napping for intervals.
--- NOTE | 2024-03-18 15:55 | CON.INTV ---
Consultation
Consultation Request
Date/Time Consultation Requested: 03/18/2024
Date/Time Consultation Performed: 03/18/2020
Requesting Provider: Dr. Leo
Performing Provider: Dr. Lukasz Singer
Reason for Consultation: Left carotic endarterectomy
Medical History
-
History of Present Illness:
83-year-old man with past medical history significant for hypertension, hyperlipidemia, bilateral carotid stenosis, abdominal aortic aneurysm. Admitted to hospital for carotid revascularization. Underwent left carotid endarterectomy on 03/18/[address] Leo.
Currently in the critical care unit for hemodynamic and neurological monitoring.
Patient denies any stridor.
Pain is controlled.
Denies any headache or blurry vision.
Past Medical History
Past Medical History: Other (See assessment and plan)
Social History
Tobacco: Former Smoker (Less than 5-pack-year quit 40 years ago)
Alcohol: None
Drug: None
Family History
Family History: Reviewed & Not Pertinent
Allergies / Home Medications
Allergies
Allergy/AdvReac Type Severity Reaction Status Date / Time
rosuvastatin [From Crestor] Allergy Myalgia Verified 03/18/24 08:31
atorvastatin [From Lipitor] AdvReac Myalgia Verified 03/18/24 08:30
Home Medications
�Medication �Instructions �Recorded �Confirmed �Last Taken �Type
nitroglycerin 0.4 mg sublingual 0.4 mg sublingual [id number] PRN 03/11/19 03/18/24 Unknown Rx
tablet chest pain #25 tabs
losartan 100 1 tab PO DAILY Blood Pressure 11/24/22 03/18/24 03/18/24 05:30 History
mg-hydrochlorothiazide 25 mg tablet
vimtdnls-sc-uryuo 300 mcg-K 60 1 tab PO DAILY Supplement 11/24/22 03/18/24 03/17/24 08:00 History
mcg-lycop 600 mcg-lutein 300 mcg
tablet (Centrum Silver Men)
aspirin 81 mg chewable tablet 81 mg PO DAILY #90 tabs 12/03/22 03/18/24 03/17/24 08:00 Rx
clopidogrel 75 mg tablet 75 mg PO DAILY #90 tabs 12/03/22 03/18/24 03/17/24 08:00 Rx
tramadol 50 mg tablet 50 mg PO DAILYPRN PRN severe pain 12/07/23 03/18/24 Unknown History
vit C 250 mg-vit E 90 mg-zinc 40 1 tab PO BID Supplement 12/07/23 03/18/24 03/18/24 05:30 History
mg-copper 1 mk-hebdge-eznotv
capsule (PreserVision AREDS-2)
acetaminophen 325 mg tablet 650 mg PO Q6HPRN PRN mild pain 12/11/23 03/18/24 03/17/24 08:00 History
(Tylenol)
amlodipine 5 mg tablet 5 mg PO DAILY Blood Pressure 12/11/23 03/18/24 03/17/24 08:00 History
coenzyme Q10 100 mg capsule 100 mg PO DAILY Supplement 12/11/23 03/18/24 03/17/24 08:00 History
(CoQ-10)
metoprolol succinate 100 mg 100 mg PO BID Blood Pressure 12/11/23 03/18/24 03/18/24 05:30 History
tablet,extended release 24 hr
atorvastatin 10 mg tablet 10 mg PO DAILY High Cholesterol 03/18/24 03/18/24 Unknown History
Review of Systems
-
History Source: Patient
All other systems: Negative unless noted
Vitals / Labs / Diagnostic Testing
Vital Signs
Temp Pulse Resp BP Pulse Ox
98.0 F 67 19 143/78 99
03/18/24 15:51 03/18/24 15:30 03/18/24 15:30 03/18/24 15:00 03/18/24 15:50
Lab Data
03/18/24 11:33
03/18/24 11:33
Diagnostic Testing:
Physical Exam
-
HEENT: Normocephalic and Other (Cervical incision intact, no hematoma. No stridor on exam.)
Cardiovascular: S1/S2
Respiratory: Clear and Non-Labored Respirations
GI: Soft and Non Distended
Neurology: Awake, Oriented, AO x 3 and No Motor Deficits
Skin: Warm
General: Comfortable
Assessment
-
Status post left carotid endarterectomy-Dr. Leo 03/18/2024
-
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
AAA s/p aortic stent graft repair 12/02/22
Essential hypertension
Abdominal aortic aneurysm
Bilateral carotid disease
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
Hyperlipidemia, w/ statin intolerance
Thoracic neuralgia�
Atherosclerosis of both carotid arteries
Liver hemangioma�
Osteoarthritis
Balance disorder
Spinal stenosis, lumbar�s/p L2-4 lumbar laminectomy 01/04/20
Mild aortic stenosis�
Assessment and plan:
Postoperative day 0
Continue observation following procedure
Follow neurovascular checks per protocol
Follow BP monitoring and parameters as set by primary team
Continue to monitor on telemetry
Nicardipine drip will be used if necessary.
Restart outpatient antihypertensive
Pain control per protocol
No prior history of pulmonary disease, smoking hx includes < 5 pack years
CXR 12/10/2023 reviewed, no acute disease
Encouraged IS
Diet advancement per protocol
Aspiration precautions
GI prophylaxis if indicated for stress ulcer prevention in the critically ill
Creat at baseline, follow UO
Void trials
Replete electrolytes as needed
DVT prophylaxis -heparin drip
Encouraged OOB/PT/OT/ambulation once cleared by surgical team
We will follow
[2024-03-18] MEDS: HEPARIN 5000 UNITS SC ×2 (17:15→23:07)
--- NOTE | 2024-03-18 18:38 | PTCARENOTE ---
Pt continues to rest quietly, returned to bedside. Pt tolerating diet. No new complaints. Neuro unchanged since arrival from PACU. Incision appearance w/ small amount of ecchymosis- unchanged since 1330. Ice applied to site q2hr x 20 min.
--- NOTE | 2024-03-18 19:30 | PTCARENOTE ---
Received patient at 1900. Pt. currently in bed. Awake, alert, and oriented. Denies pain/discomfort at this time. Afebrile. Heart rhythm sinus. Currently on room air. Lungs sound diminished. PO diet ordered, good appetite. Pt. unable to void earlier,
straight cath was needed. Due to void. Skin as documented. Discussed plan of care. Vital signs stable at this time.
[2024-03-18] MEDS: TOPROL XL 100 MG PO (19:42)
[2024-03-18] MEDS: OCUVITE SOFTGEL 1 CAP PO (19:42)
[2024-03-18] MEDS: CARDENE 200 IV (20:39)
[2024-03-19] VITALS (11 sets, daily range): BP systolic 117–156; BP diastolic 71–94; BMI 27.6
--- NOTE | 2024-03-19 00:10 | PTCARENOTE ---
Pt. with sustained hypertension with SBP 190s. Cardene gtt started at minimal dose. SBP down to 120s. Cardene currently off. Vital signs stable at this time.
[2024-03-19 03:21] LABS: INR 1.09; PT 14.4 Sec (11.4-14.6)
[2024-03-19 03:22] LABS: APTT 32.8 Sec (23.4-35.0); Hematocrit 36.5 % (39.0-52.0); Hemoglobin 12.6 g/dL (13.0-18.0); Mean Corp Hgb Conc. 34.5 g/dL (33.0-37.0); Mean Corpuscular Hgb 28.1 pg (27.0-31.0); Mean Corpuscular Volume 81.3 fL (80.0-94.0); Mean Platelet Volume 9.2 fL (7.4-10.4); Platelet Count 162 10^3/uL (130-400); Red Blood Cell Count 4.49 10^6/uL (4.70-6.10); Red Cell Dist. Width 15.5 % (11.5-14.5); White Blood Cell Count 9.3 10^3/uL (4.8-10.8)
--- NOTE | 2024-03-19 03:30 | PTCARENOTE ---
Pt. assessment unchanged. AM labs drawn. Vital signs stable at this time.
[2024-03-19 03:43] LABS: Blood Urea Nitrogen 23 mg/dl (9-20); Calcium 9.7 mg/dl (8.4-10.2); Carbon Dioxide 24 mmol/L (22-30); Chloride 104 mmol/L (98-107); Estimated Creatinine Clearance 82 ml/min; Glucose 126 mg/dl (70-99); Potassium 4.2 mmol/L (3.5-5.1); Sodium 138 mmol/L (135-145); eGFR > 60.00
[2024-03-19] MEDS: THERAGRAN 1 TABLET PO (07:33)
[2024-03-19] MEDS: TOPROL XL 100 MG PO (07:33)
[2024-03-19] MEDS: OCUVITE SOFTGEL 1 CAP PO (07:33)
[2024-03-19] MEDS: LOW STRENGTH ASPIRIN 81 MG PO (07:33)
[2024-03-19] MEDS: PLAVIX 75 MG PO (07:33)
[2024-03-19] MEDS: NORVASC 5 MG PO (07:34)
[2024-03-19] MEDS: HYZAAR 100-25 TABLET 1 TAB PO (07:34)
[2024-03-19] MEDS: HEPARIN 5000 UNITS SC (07:35)
--- NOTE | 2024-03-19 08:25 | W.PN.VS ---
Today's Communication / Plan
-
POD 1 L CEA
- mobilize
- HAILY
- lines out
- home meds and follow BP
- if SBP 100-140 can D/C home
Assessment/Plan
-
POD 1 L CEA
- mobilize
- HAILY
- lines out
- home meds and follow BP
- if SBP 100-140 can D/C home
Subjective Data
-
Date of Service: March 19, 2024
POD 1 L CEA
no headache
no swallowing difficulties
voiding
SBP 150-160s pre-home meds
no focal deficits
Objective Data
-
Vital Signs
Temp Pulse Resp BP Pulse Ox
97.8 F 60 11 130/107 92
03/19/24 07:00 03/19/24 07:33 03/19/24 06:00 03/19/24 07:33 03/19/24 06:00
Intake and Output
03/18/24 03/19/24 03/20/24
06:59 06:59 06:59
Intake Total 2397.5 / 2397.5 0 / 0
Output Total 1870 / 1870 0 / 0
Balance 527.5 / 527.5 0 / 0
Intake:
Oral fluids 920 / 920
IV fluids (Total) 1477.5 / 1477.5 0 / 0
Cardene 37.5 / 37.5
Nss 1,000 ml @ 80 mls/hr IV . 1440 / 1440 0 / 0
[id number] DAVID Rx#:[id number]
Output:
Urine, Voided 1220 / 1220 0 / 0
Straight cath output 650 / 650
Lab Results
03/19/24 03:01
03/19/24 03:01
Calcium 9.7 mg/dl (8.4-10.2) 03/19/24 03:01
Physical Exam
-
neck soft
smile equal
tongue midline
strength 5/5 in all 4
--- NOTE | 2024-03-19 08:37 | W.PN.INTV ---
Today's Communication / Plan
Recommendations
Continue antihypertensive
Discontinue arterial line
Increase mobility
Hopeful discharge later today
Signed off
Assessment
-
Status post left carotid endarterectomy-Dr. Leo 03/18/2024
-
Conditions present [employer]
AAA s/p aortic stent graft repair 12/02/22
Essential hypertension
Abdominal aortic aneurysm
Bilateral carotid disease
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
Hyperlipidemia, w/ statin intolerance
Thoracic neuralgia�
Atherosclerosis of both carotid arteries
Liver hemangioma�
Osteoarthritis
Balance disorder
Spinal stenosis, lumbar�s/p L2-4 lumbar laminectomy 01/04/20
Mild aortic stenosis�
Assessment and plan:
Postoperative day 1
Hemodynamically and neurologically intact.
Vascular correspondence reviewed likely discharge later today if blood pressure is in range
Hypertensive but asymptomatic
Cardene drip has been discontinued
Restart outpatient oral antihypertensives
Discontinue arterial line
Increase activity as able
Pain is controlled
Incision is intact without hematoma
Tolerating diet
Aspiration precautions
DVT prophylaxis -heparin drip
Encouraged OOB/PT/OT/ambulation once cleared by surgical team
Continue postoperative care
Discharge planning
Signed off
Subjective Dataa
Subjective Data
Date of Service:
Date of Service: March 19, 2024
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
Subjective:
Patient denies headache or blurry vision
Denies nausea or vomiting
Denies any pain
Review of Systems
Cardiopulmonary: Dyspnea (n) and Cough (n)
GI: Abdominal Pain (n) and Nausea (n)
Neuro: Headache (n)
Objective Data
Data Reviewed
Vital Signs / I&O / Oxygen:
Vital Signs
Temp Pulse Resp BP Pulse Ox
97.8 F 60 11 130/107 92
03/19/24 07:00 03/19/24 07:33 03/19/24 06:00 03/19/24 07:33 03/19/24 06:00
Intake and Output
03/18/24 03/19/24 03/20/24
06:59 06:59 06:59
Intake Total 2397.5 / 2397.5 0 / 0
Output Total 1870 / 1870 200 / 200
Balance 527.5 / 527.5 -200 / -200
SaO2 92
Physical Exam
General: Comfortable
HEENT: Normocephalic
Cardiovascular: S1-S2
Respiratory: Non-Labored Respirations
GI: Soft and Non Distended
Neurology: Awake, Oriented, AO x 3 and No Motor Deficits
Skin: Warm
Labs/Micro/Reports
Lab Data
03/19/24 03:01
03/19/24 03:01
Laboratory Results
03/19/24
03:01
PT 14.4
INR 1.09
APTT 32.8
--- NOTE | 2024-03-19 10:22 | PTCARENOTE ---
Pt awake and alert. Ephraim removed, no hematoma. pressure dressing applied. minimal assist to the bathroom. toileting and hygiene. OOB to chair. Offers no complaints, CB in reach. No change in assessment.
--- NOTE | 2024-03-19 11:33 | PTCARENOTE ---
d/w attending continue with d/c. BP WNL. reviewed D/C medications. OOB to chair family at bedside.
== END 2024-03-19 12:38 | disposition home or self-care (01) | DRG 39 ==
LOC: ICU 12:55
PROVIDERS: Nurse Practitioner; ADMITTING PHYSICIAN Surgery Vascular Surgery; CONSULT PHYSICIAN Internal Medicine Critical Care Medicine; FAMILY PHYSICIAN Nurse Practitioner Adult Health
PROC: 03UL0KZ Supplement Left Internal Carotid Artery with Nonautologous Tissue Substitute, Open Approach (ICD-10-PCS; 2024-03-18)
PROC: 03CJ0ZZ Extirpation of Matter from Left Common Carotid Artery, Open Approach (ICD-10-PCS; 2024-03-18)
DX: I65.23 Occlusion and stenosis of bilateral carotid arteries (principal); D69.6 Thrombocytopenia, unspecified; I71.40 Abdominal aortic aneurysm, without rupture, unspecified; I10 Essential (primary) hypertension; D18.03 Hemangioma of intra-abdominal structures; E78.5 Hyperlipidemia, unspecified; M48.061 Spinal stenosis, lumbar region without neurogenic claudication; M19.90 Unspecified osteoarthritis, unspecified site; Z87.891 Personal history of nicotine dependence
CPT/HCPCS: 88304; 88311; 35301; 36415; 80048; 85025; 85027; 85610; 85730; 95938; 95941; 95955

== ENCOUNTER → 2024-04-11 11:16 | Outpatient (REF) | payer MEDICARE, OTHER, SELFPAY | LOC: RAD 11:16 | PROVIDERS: ATTENDING PHYSICIAN Registered Nurse; FAMILY PHYSICIAN Internal Medicine | DX: I65.29 Occlusion and stenosis of unspecified carotid artery (principal); I65.23 Occlusion and stenosis of bilateral carotid arteries | CPT/HCPCS: 93880 ==

== ENCOUNTER → 2024-10-21 15:20 | Outpatient (REF) | payer MEDICARE, OTHER, SELFPAY | LOC: RAD 15:20 | PROVIDERS: ATTENDING PHYSICIAN Surgery Vascular Surgery; FAMILY PHYSICIAN Internal Medicine | DX: I71.40 Abdominal aortic aneurysm, without rupture, unspecified (principal); I65.23 Occlusion and stenosis of bilateral carotid arteries | CPT/HCPCS: 76770; 93880 ==

== ENCOUNTER 2024-10-24 11:53 | Inpatient (IN) | payer MEDICARE, OTHER, SELFPAY ==
[2024-10-22 23:49] VITALS: BP 173/91
[2024-10-23] VITALS (12 sets, daily range): BP systolic 136–172; BP diastolic 78–94; PULSE 50; O2SAT 95–97; BMI 27.9; BMI 27.1
[2024-10-23 00:12] LABS: % Basophils 0.1 % (0-2); % Immature Granulocytes 0.3 % (0-0.5); % Lymphocytes 8.1 % (20.5-51.1); % Monocytes 7.6 % (1.7-9.3); % Neutrophils 83.9 % (42.2-75.2); Absolute Lymphocytes 1.1 10^3/uL (1.2-3.4); Absolute Neutrophils 11.4 10^3/uL (1.4-6.5); Hematocrit 41.3 % (39.0-52.0); Hemoglobin 14.1 g/dL (13.0-18.0); Mean Corp Hgb Conc. 34.1 g/dL (33.0-37.0); Mean Corpuscular Hgb 29.6 pg (27.0-31.0); Mean Corpuscular Volume 86.8 fL (80.0-94.0); Mean Platelet Volume 9.5 fL (7.4-10.4); Nucleated Red Blood Cells % 0 % (-); Platelet Count 173 10^3/uL (130-400); Red Blood Cell Count 4.76 10^6/uL (4.70-6.10); Red Cell Dist. Width 13.7 % (11.5-14.5); White Blood Cell Count 13.6 10^3/uL (4.8-10.8)
[2024-10-23 00:29] LABS: ALT (SGPT) 20 U/L (0-50); AST (SGOT) 27 U/L (17-59); Albumin 4.4 g/dl (3.5-5.0); Alkaline Phosphatase 68 U/L (38-126); Blood Urea Nitrogen 33 mg/dl (9-20); Calcium 10.5 mg/dl (8.4-10.2); Carbon Dioxide 27 mmol/L (22-30); Chloride 106 mmol/L (98-107); Glucose 137 mg/dl (70-99); Potassium 4.2 mmol/L (3.5-5.1); Sodium 140 mmol/L (135-145); Total Bilirubin 0.9 mg/dl (0.2-1.3); Total Protein 7.4 g/dl (6.3-8.2); eGFR > 60.00
--- NOTE | 2024-10-23 01:57 | ED.GENMED ---
History of Present Illness
General
Chief Complaint: Gait Dysfunction
Source: patient and family
Exam Limitations: none
Time Seen by Provider: 10/23/24 01:16
Nursing documentation reviewed up to this point in time: agreed with
History of Present Illness
History of Present Illness:
Note:
CHIEF COMPLAINT(S)
Weakness in the right arm, right hand, and right leg with tingling and loss of strength. Recent episode of slurred speech.
HISTORY OF PRESENT ILLNESS
The patient is an 84-year-old male with a history of previous laminectomy performed in 2019 at [facility] to address back pain, resulting in neuropathy in the legs. The patient reported manageable weakness and balance issues post-surgery. The patient
also has a history of an aortic aneurysm repair. Recently, the patient spent 10 days on vacation in [place], involving prolonged sitting, which may have exacerbated symptoms. Since returning, there has been a progression of previous balance and
mobility issues, specifically loss of feeling and strength in the right leg and arm. The patient reported that symptoms, including the weakness, were noted to worsen in the evenings, attributing it to fatigue but had been managing to use a cane for
mobility. Last night, the patient could not walk up the stairs and had to crawl due to severe weakness.
The significant change of having weakness in the right leg, arm, and hand was noticed since yesterday, Thursday. Additionally, there were difficulties holding a fork and other fine motor tasks with the right hand. On the same day, there was a brief
episode of slurred speech reported by the patients spouse around 7 PM, lasting approximately a couple of hours, with slight garbling noted by the patient himself. The slurred speech resolved, but difficulty in executing tasks like putting sunglasses
on persisted till later in the evening but improved slightly by noon today. This episodic weakness and loss of function are atypical for the patient.
The patients history includes consultations with a physician who previously attributed leg symptoms to back issues. Despite occasional use of a cane, the patient required a walker starting yesterday for ambulation. Additional symptoms include no
reported fevers, chills, chest pain, or shortness of breath.
ADDITIONAL HISTORY OBTAINED FROM SOURCES OTHER THAN THE PATIENT
Per the patient's spouse: The patient experienced weakness on the right side as recently as one hour before this examination. The spouse noted episodes of slurred speech around 7 PM. Additionally, there were difficulties with tasks requiring fine
motor skills, such as handling a fork during dinner on the same evening. The patient reports that all symptoms have resolved at this time.
PHYSICAL EXAM
- Nursing notes reviewed and vital signs reviewed.
- Neurological: Observable weakness in the right side, including extremities. Episodic difficulty was noted with fine motor skills in the right hand.
PROBLEM LIST
Acute Problems:
- Right-sided weakness
- Episodic slurred speech
Chronic Problems:
- Neuropathy in the legs
- Balance issues
PLAN
- Immediate stroke work-up, including a specialized CAT scan, considering the possibility of an acute stroke particularly involving posterior circulation.
- Stroke alert initiated to facilitate immediate evaluation and transfer to a hospital setting for further management.
- Further evaluation for potential cryptogenic stroke if imaging findings correlate with symptoms.
DIFFERENTIAL DIAGNOSIS
The Differential Diagnosis includes, in no particular order and is not limited to:
- Posterior circulation stroke
- Transient ischemic attack
- Peripheral neuropathy exacerbation
- Multiple sclerosis exacerbation
- Cervical myelopathy
- Migraine with neurological deficit
- [place] palsy with atypical presentation
- Spinal cord compression
- Amyotrophic lateral sclerosis
- Diabetic amyotrophy
CARE-UPDATE
10/23/24 - 01:50
Stroke alert initiated at 1:45 a.m. following an episode of slurred speech reported by the patients , occurring within the previous hour. Current NIHSS is assessed at 0, indicating no detectable neurological deficits at this time.
CARE-UPDATE
10/23/24 - 01:55
The patient presented with intermittent slurring of speech, now resolved, which may indicate a precursor to a more significant event. A plain CT scan of the head, a CT angiogram of the head and neck vessels, and a perfusion scan will be conducted to
assess for potential clots or other issues, which might require intervention or transfer to another facility. The patient will be admitted for continued observation and will undergo further neurological evaluation, including an MRI, with a
neurologist consultation scheduled for the following day. This approach is necessary due to the recent onset and frequency of the symptoms, raising concern for a potentially escalating condition.
CARE-UPDATE
10/23/24 - 02:07
Patient is currently on blood thinners, due to a history of artery-related issues and a prior abdominal aortic aneurysm (AAA) surgery that occurred three years ago. Notably, he also had a heart attack in the past, which was discovered incidentally
during a routine check-up, though he had no prior awareness of it. Recently, there is a significant concern regarding his mobility and balance. Despite being generally active for his age, his ability to walk has been severely compromised; an episode
in [place] revealed marked instability requiring him to grasp onto a car door to prevent a fall. Moreover, he struggled significantly with stairs recently, a task he could previously manage albeit slowly. Plans are underway to admit him for
further evaluation, and a CAT scan is being expedited to facilitate this.
Disposition:
DIAGNOSIS
- Acute right-sided weakness and slurred speech (R29.810, R47.81)
SUMMARY OF ENCOUNTER
An 84-year-old male presented to the emergency department with complaints of weakness in the right arm and intermittent slurred speech over the past two days. The most recent episode of slurred speech occurred approximately one hour before arrival,
as noted by his . During his stay in the ER, he did not exhibit any neurological symptoms, and his NIH Stroke Scale was assessed at zero. Notably, he was able to go to the bathroom tonight, an improvement from the previous day. A CT scan of the
head and CT angiogram of the head and neck were both normal. The patient experienced brief PACs and PVCs on the monitor but was not hypoxic.
DISPOSITION
Admit
CONSIDERATION FOR ADMISSION
The patient is set to be admitted to the hospitalist service for further testing and evaluation.
INDEPENDENT INTERPRETATION OF TESTS
- My independent interpretation of the CT scan of the head shows normal findings.
- My independent interpretation of the CT angiogram of the head and neck shows normal findings.
MEDICAL DECISION MAKING
Number and Complexity of Problems Addressed: Acute concerns of right-sided weakness and slurred speech were evaluated alongside a history of chronic balance issues and neuropathy. The complexity is underscored by the potential for a posterior
circulation stroke or transient ischemic attack, necessitating prompt imaging and evaluation.
Data: A CT scan of the head and a CT angiogram of the head and neck were performed and interpreted as normal, impacting the decision not to pursue thrombolytic therapy due to symptom resolution and timing.
Risk: Consideration for hospitalization was made due to the acute nature of the symptoms and potential escalation. The patients care plan was influenced by previous vascular history, including aortic aneurysm repair and anticoagulation therapy,
increasing the complexity and necessity of careful management.
Past History
Past History
ED Past Medical History: HTN, Hypercholesterolemia and Other (Neuropathy of both legs)
ED Past Surgical History: Cardiac (Aortic stent 11/2022) and Orthopedic
Social History
Tobacco: Non-smoker
Alcohol: Occasional
Personal:
Living: with family
Review of Systems
Review of Systems
Allergies reviewed?: Yes
Other source history: family
All Other Systems: ROS reviewed and negative except as documented in HPI and ROS
Constitutional: Reports no symptoms
Neurological: Reports other (slurring of speech); Denies dizzy, headache, weakness or numbness
Phy Exam
General Physical Exam
General Presentation: well appearing
General age: appears stated age
General Skin: warm and dry
General Habitus: normal
General Mental: alert
General Hydration: appears well hydrated
ENT Exam
ENT Exam: EOMI, pharynx normal, neck supple and normocephalic
Eye Exam
Eye Exam: PERRL, cornea clear and conjunctiva normal
Cardiovascular Exam
Cardiovascular Exam: regular rate/rhythm and no edema
Pulmonary Exam
Pulmonary Exam: lungs clear, no respiratory distress, no rales, no crackles, no rhonchi, no stridor, no wheezing and no cough
Gastrointestinal Exam
Gastrointestinal Exam: normal bowel sounds, non tender, soft, no organomegaly, no pulsatile mass and non distended
Neurological Exam
Neurological Exam: alert and oriented x3
Musculoskeletal Exam
Musculoskeletal Exam: full ROM, no edema and neuro vasc intact
Skin Exam
Skin Exam: other (Ecchymosis which states is current)
Psychiatric Exam
Psychiatric Exam: normal mood/affect
Scores
NIH Stroke Score
Level of Consciousness: 0 - Alert
LOC Questions: 0-Answers both correctly
LOC Commands: 0-Performs both correctly
Best Horizontal Gaze: 0-Normal
Visual Leon: 0=Normal, no visual loss
Facial Palsy: 0=Normal, symmetrical
Motor - Right Arm: 0=No drift 10 seconds
Motor - Left Arm: 0=No drift 10 seconds
Motor - Right Le-No drift 5 seconds
Motor - Left Le-No drift 5 seconds
Limb Ataxia: 0-Absent
Sensation: 0-Normal
Best Language: 0-No aphasia
Dysarthria: 0-Normal
Extinction and Inattention: 0-No abnormality
NIH Total Score:: 0
Thrombolytic Contraindication
Inclusion and Exclusion criteria reviewed: Yes
Reasons for NON-Tx with Thrombolytics ABSOLUTE Exclusions: Greater than 4.5 hrs from onset of sxs
Course
Orders/Labs/Results
Orders:
Orders
10/22/24 23:54
Electrocardiogram (*1) Urgent
Reason for Study: Fatigue / Weakness
10/22/24 23:58
Complete Blood Count/With Diff Urgent
Comprehensive Metabolic Panel Urgent
10/23/24 01:[address] BRAIN PERF STROKE ALERT Urgent
Comment:
Reason For Exam: slurring , r sided weakness (resolved)
CT HEAD STROKE ALERT W/o Cont Urgent
Comment:
Reason For Exam: slurring , r sided weakness (resolved)
CT HEAD/NECK ANG STROKE ALERT Urgent
Comment:
Reason For Exam: slurring , r sided weakness (resolved)
Abnormal Lab Results
10/22/24
23:58
WBC 13.6 H 10^3/uL
(4.8-10.8)
Absolute Neuts (auto) 11.4 H 10^3/uL
(1.4-6.5)
Absolute Lymphs (auto) 1.1 L 10^3/uL
(1.2-3.4)
Absolute Monos (auto) 1.0 H 10^3/uL
(0.1-0.6)
Neutrophils % 83.9 H %
(42.2-75.2)
Lymphocytes % 8.1 L %
(20.5-51.1)
BUN 33 H mg/dl
(9-20)
Glucose 137 H mg/dl
(70-99)
Calcium 10.5 H mg/dl
(8.4-10.2)
10/22/24 23:58
10/22/24 23:58
Vital Signs
Initial and Last Documented VS:
Initial Vital Signs
Temp Pulse Resp BP Pulse Ox
98.2 F 50 20 173/91 99
10/22/24 23:49 10/22/24 23:49 10/22/24 23:49 10/22/24 23:49 10/22/24 23:49
Last Documented Vital Signs
Temp Pulse Resp BP Pulse Ox
98.2 F 47 20 163/83 99
10/22/24 23:49 10/23/24 01:22 10/23/24 01:22 10/23/24 01:22 10/23/24 01:27
*Radiology
Radiology exam reviewed: radiology read reviewed
*Pulse Oximetry
Patient hypoxic: no (98% on room air)
*Critical Care Note
Total Time (30-74mins, 75-104mins- exclusive of procedures): 44 (Critical care statement: A total of 44 minutes of critical care time was provided for this patient. This time is separate from time utilized to perform the aforementioned documented
procedures. Aggregate critical care time includes only time during which I was engaged in work directl)
Update Note
Update Note:
NAME: EARL NICKERSON
DATE OF EXAM: 10/23/2024
Patient No: [id number]
Physician: PRAFUL^FELIX^Yane
Date of : 1940
Past Medical History (entered by Technologist):
Reason For Exam (entered by Technologist):
Other Notes (entered by Technologist): *STROKE ALERT* Slurring , r sided weakness (resolved)
*Patients IV leaked at some point during second slab injection*
Additional Information (per Vision Radiologist):
CTA NECK
CTA COW
RAPID CT BRAIN PERFUSION
IMPRESSION:
Comparison: Same day CT head, CTA on 10/26/2023.
CTA NECK
No high grade stenosis, occlusion, or dissection of the bilateral common carotid, bilateral internal carotid, or bilateral vertebral arteries.
CTA COW
No high-grade stenosis or occlusion.
No aneurysm.
RAPID CT BRAIN PERFUSION
Stroke location: none. There is a generalized Tmax abnormality throughout both hemispheres, likely artifactual given the issue with the IV leaking during the exam.
CBF (?30% volume): 0 mL
T-max ? 6 s: 166 mL
Mismatch volume: 166 mL
Mismatch ratio: Infinite.
Case discussed with Dr. Beyer in the ED at 2:55 AM ET.
ED Attending Note
-
Portions of this chart may have been created with voice recognition software.� Occasional wrong word or��sound alike� substitutions may have occurred due to the inherent limitations of voice recognition software.
Discharge Plan
Departure
Patient Disposition: Admit
Date of Disposition: 10/23/24
Time of Disposition: 03:19
Admit to: IMU
Presentation/result/management discussed w/ accepting MD/DO: Hospitalist
Condition: Fair
Discharge Problem:
Brain TIA, Slurring of speech
Prescriptions:
No Action
nitroglycerin 0.4 MG tablet, sublingual
0.4 mg sublingual [id number] PRN (Reason: chest pain) Qty: 25 10RF
losartan-hydrochlorothiazide 100-25 mg Tablet
1 tab PO DAILY
Centrum Silver Men [id number] mcg Tablet
1 tab PO DAILY
clopidogrel 75 mg Tablet
75 mg PO DAILY Qty: 90 0RF
aspirin 81 mg Tablet,Chewable
81 mg PO DAILY Qty: 90 0RF
tramadol 50 mg Tablet
50 mg PO DAILYPRN PRN (Reason: severe pain)
PreserVision AREDS-2 250-90-40-1 mg Capsule
1 tab PO BID
acetaminophen [Tylenol] 325 mg Tablet
650 mg PO Q6HPRN PRN (Reason: mild pain)
metoprolol succinate 100 mg Tablet Extended Release 24 Hr
100 mg PO BID
amlodipine 5 mg Tablet
5 mg PO DAILY
coenzyme Q10 [CoQ-10] 100 mg Capsule
100 mg PO DAILY
Patient Comments:
12/11/23: Patient takes on days he does not take Lipitor
atorvastatin 10 mg Tablet
10 mg PO DAILY
Referrals:
Ariel Cortes MD [Family Provider, Internal Medicine]
Interventions
Interventions:
*Risk Screen - Suicide Last Done: 10/22/24 23:49
*General Assessment Last Done: 10/22/24 23:49
*Neglect/Abuse Screening Last Done: 10/22/24 23:50
*ED- Fall Risk Assessment Last Done: 10/23/24 01:23
*ED COVID-19 Vaccine History Last Done: 10/23/24 01:23
ED- Pulmonary Assessment Last Done: 10/23/24 01:27
ED- Neurological Assessment Last Done: 10/23/24 01:45
ED-Musculoskeletal Assessment Last Done: 10/23/24 01:27
ED- Cardiac Assessment Last Done: 10/23/24 01:23
ED Swallowing Screen Last Done: 10/23/24 01:40
Discharge Date and Time
Print Language: KOREAN
--- NOTE | 2024-10-23 04:33 | HPS.HSE ---
Family Physician
-
Family Physician: Nabil Cortes
Chief Complaint
-
right-sided UE and LE weakness, slurred speech
History of Present Illness
The patient is an 84-year-old male with past medical history significant for abdominal aortic aneurysm status post aortic stent, coronary artery disease, mitral valve prolapse, hypertension, hyperlipidemia, bilateral carotid artery stenosis, L CEA,
lumbar stenosis, macular degeneration, peripheral neuropathy, peripheral vascular disease, total hip replacement, cataracts, previous laminectomy in 2019 at [place] resulting in neuropathy of the legs, who came to the emergency department
secondary to worsening weakness of the right lower extremity and upper extremity that he noticed starting on Thursday, with difficulty holding a fork and other fine motor tasks of the right hand. He also had a brief episode of slurred speech around 7
PM on Thursday. This lasted approximately 2 hours with garbled speech, noticed by his . He also notes that he has been having increased generalized weakness that he was attributing to fatigue after spending 10 days on vacation in [place] with
prolonged sitting at that time. Stroke alert was called in the emergency department. He has resolution of any focal deficits in the emergency department at this time. His NIH score is 0. CT scan of the head was negative for acute pathology, CTA
of the head and neck were also normal.
Medical History
Past Medical History
Past Medical History: Reports Other (abdominal aortic aneurysm status post aortic stent last year, coronary artery disease, mitral valve prolapse, hypertension, hyperlipidemia, bilateral carotid artery stenosis, lumbar stenosis, macular
degeneration, peripheral neuropathy, peripheral vascular disease, total hip replacement, cataracts,)
Past Surgical History: Reports Other (Abdominal aortic aneurysm stent, bilateral hip replacement, laminectomy, cataracts, carotid endarterectomy left side March 18, 2024)
Social History
Tobacco: Non-smoker
Alcohol: None
Drug: None
Family History
Family History: Other
Allergies / Home Medications
Allergies reflects when Allergies were last updated in [facility].
Home Medications with original date entered in [facility]
Allergy/Medication List:
Allergies
Allergy/AdvReac Type Severity Reaction Status Date / Time
rosuvastatin (From Crestor) Allergy Myalgia Verified 03/18/24 08:31
atorvastatin (From Lipitor) AdvReac Myalgia Verified 03/18/24 08:30
Home Medications
nitroglycerin 0.4 mg sublingual tablet 0.4 mg sublingual [id number] PRN chest pain #25 tabs 03/11/19
losartan 100 mg-hydrochlorothiazide 25 mg tablet 1 tab PO DAILY Blood Pressure 11/24/22
[id number]-[id number] 300 mcg-K 60 mcg-lycop 600 mcg-lutein 300 mcg tablet (Centrum Silver Men) 1 tab PO DAILY Supplement 11/24/22
aspirin 81 mg chewable tablet 81 mg PO DAILY #90 tabs 12/03/22
clopidogrel 75 mg tablet 75 mg PO DAILY #90 tabs 12/03/22
tramadol 50 mg tablet 50 mg PO DAILYPRN PRN severe pain 12/07/23
vit C 250 mg-vit E 90 mg-zinc 40 mg-copper 1 [id number] capsule (PreserVision AREDS-2) 1 tab PO BID Supplement 12/07/23
acetaminophen 325 mg tablet (Tylenol) 650 mg PO Q6HPRN PRN mild pain 12/11/23
amlodipine 5 mg tablet 5 mg PO DAILY Blood Pressure 12/11/23
coenzyme Q10 100 mg capsule (CoQ-10) 200 mg PO DAILY Supplement 12/11/23
metoprolol succinate 100 mg tablet,extended release 24 hr 100 mg PO BID Blood Pressure 12/11/23
atorvastatin 10 mg tablet 10 mg PO DAILY High Cholesterol 03/18/24
dexamethasone 10/23/24
Review of Systems
-
A 12 point ROS was completed and negative except as noted: Yes
Physical Exam
Vital Signs
Vital Signs
Temp Pulse Resp BP Pulse Ox
98.2 F 47 13 172/92 99
10/22/24 23:49 10/23/24 03:15 10/23/24 03:15 10/23/24 03:08 10/23/24 03:15
Physical Exam
General: Well Developed, Well Nourished, No Apparent Distress, Comfortable and Conversant
HEENT: NormoCephalic, Anicteric and Moist mucous membranes
Respiratory: Clear
Cardiac: S1/S2 and Regular Rhythm
GI: Soft, Non Tender and Non Distended
Musculoskeletal: No Clubbing, No Cyanosis and No Edema
Skin: Warm and Dry
Neuro: AO x 3, Cranial Nerves Intact and Other (right UE and hand slightly decreased in muscle strength 4+/5 compared to left UE and LE at 5/5)
Psych: Calm
Laboratory Results
-
10/22/24 23:58
10/22/24 23:58
Laboratory Results
Total Bilirubin 0.9 mg/dl (0.2-1.3) 10/22/24 23:58
AST 27 U/L (17-59) 10/22/24 23:58
ALT 20 U/L (0-50) 10/22/24 23:58
Alkaline Phosphatase 68 U/L (38-126) 10/22/24 23:58
Data Reviewed
-
CT Scan: Report Reviewed by me (CT of the head preliminary report shows no acute intracranial hemorrhage mass effect or midline shift with mild global volume loss and chronic small vessel ischemic white matter change. CTA head and neck shows no
high-grade stenosis stenosis or occlusion)
Medical Tests (Nuc Med, Echo, EKG etc): Report Reviewed by me (EKG sinus bradycardia, left anterior fascicular block, echocardiogram March 2022 normal biventricular size and systolic function, no significant valvular disease, ejection fraction 60
to 65%,)
Impression/Plan
-
IMPRESSION:The patient is an 84-year-old male with past medical history significant for abdominal aortic aneurysm status post aortic stent last year, coronary artery disease, mitral valve prolapse, hypertension, hyperlipidemia, bilateral carotid
artery stenosis, lumbar stenosis, macular degeneration, peripheral neuropathy, peripheral vascular disease, total hip replacement, cataracts, neuropathy of the legs, who came to the emergency department secondary to worsening weakness of the right
lower extremity and upper extremity that he noticed starting on Thursday, with difficulty holding a fork and other fine motor tasks of the right hand. He also had a brief episode of slurred speech around 7 PM on Thursday. Stroke alert was called in
the emergency department. He has resolution of any focal deficits in the emergency department at this time. His NIH score is 0. CT scan of the head was negative for acute pathology, CTA of the head and neck were also normal.
#TIA versus CVA
-admit for stroke rule out, observation level of care, telemetry monitoring
- MRI brain
- neuro-checks
- Neurology consultation
�Continue home aspirin and Plavix
- Continue home statin
# Leukocytosis, likely reactive, no evidence for acute infection
- Repeat CBC in the morning, monitor for symptoms
# History of left carotid endarterectomy with patch angioplasty using bovine pericardium on March 18, 2024 without evidence for recurrent flow-limiting stenosis
- On aspirin and Plavix
-Carotid ultrasound performed October 21, 2024 for history of occlusion and stenosis of bilateral carotid arteries post left carotid endarterectomy is without signs of recurrent flow-limiting stenosis
Chronic medical conditions:
Abdominal aortic aneurysm status post aortic stent last year
Coronary artery disease
Mitral valve prolapse
Essential hypertension
-Continue losartan�hydrochlorothiazide with hold parameters
-Continue metoprolol with hold parameters
-Continue amlodipine with hold parameters
Hyperlipidemia
Bilateral carotid artery stenosis
Lumbar stenosis
Macular degeneration
Peripheral neuropathy
Peripheral vascular disease
Total hip replacement, cataracts,
DVT proph-SCDs
Full Code
--- NOTE | 2024-10-23 08:21 | CON.NEURO ---
Neuro Assessment/Plan
Assessment
CT P indicates nonphysiologic multiple areas of inadequate perfusion
CTA head and neck failed to demonstrate abnormalities
MRI of brain performed in 2016 due to visual changes and impairment was normal
Acute onset of right leg and arm weakness and intermittent slurred speech with 10-day history of lower extremity weakness bilaterally.
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
Patient was not thought to be a candidate for tenecteplase or clot retrieval due to absence of a clot for retrieval as well as being out of timeframe from time of onset of symptoms
Plan
Continue aspirin and clopidogrel, check for efficacy
await CTA head and neck formal reading
Follow formal MRI of brain results
patient will need to have a replacement of Atorvastatin if LDL > 70 with Evolocumab as outpatient
Consider formal cognitive testing as outpatient
Provide medical educational materials
Goal of normotension, patient is more than 24 hours since onset of symptoms
Goal of normoglycemia
Rehabilitation evaluations and treatment
DVT prophylaxis
Will follow pending results.
Consultation
Order
Date of Consultation: 10/23/24
Requesting Provider: Hospitalist
Reason for Consult: Right leg and arm weakness
Subjective/Objective
Subjective Data
Date of Service: October 23, 2024
Adapted from my emergency department note:
'84-year-old male with progression of previous balance and mobility issues, specifically loss of feeling and strength in the right leg and arm. Leg symptoms may have started approximately 10 days ago while on vacation in [place].
The patient reported that symptoms, including the weakness, were noted to worsen in the evenings, attributing it to fatigue but had been managing to use a cane for mobility. Last night, the patient could not walk up the stairs and had to crawl due
to severe weakness.
The significant change of having weakness in the right leg, arm, and hand was noticed since yesterday, Thursday. Additionally, there were difficulties holding a fork and other fine motor tasks with the right hand. On the same day, there was a brief
episode of slurred speech reported by the patients spouse around 7 PM, lasting approximately a couple of hours, with slight garbling noted by the patient himself. The slurred speech resolved, but difficulty in executing tasks like putting sunglasses
on persisted till later in the evening but improved slightly by noon today. This episodic weakness and loss of function are atypical for the patient. The patient may have had a worsening of symptoms 1 hour prior to presentation leading to a stroke
alert initiation.
Despite occasional use of a cane, the patient required a walker starting yesterday for ambulation.'
10/21/2024 1500
Back to normal on 10/22/2024
Worsening again 10/22/2024 2100, in arm and leg, improved. The patient was described as also experiencing speech difficulty which is subsequently entirely resolved. The patient himself is aware of continued sense of weakness in the right upper and
lower extremities which is variable. No prior episodes. No known modifying factors.
Objective Data
Vital Signs
Temp Pulse Resp BP Pulse Ox
36.4 C 45 18 159/86 99
10/23/24 07:45 10/23/24 07:45 10/23/24 07:45 10/23/24 07:45 10/23/24 07:45
Lab Results
10/22/24 23:58
10/22/24 23:58
Sodium 140 mmol/L (135-145) 10/22/24 23:58
Potassium 4.2 mmol/L (3.5-5.1) 10/22/24 23:58
BUN 33 mg/dl (9-20) H 10/22/24 23:58
Glucose 137 mg/dl (70-99) H 10/22/24 23:58
Calcium 10.5 mg/dl (8.4-10.2) H 10/22/24 23:58
Patient Allergies
rosuvastatin (From Crestor) Allergy (Verified 03/18/24 08:31)
Myalgia
atorvastatin (From Lipitor) Adverse Reaction (Verified 03/18/24 08:30)
Myalgia
CVA Assessment
Onset of Stroke Symptoms
Onset of symptoms known: Yes
Date of onset of symptoms: 10/21/24
Time of onset of symptoms: 15:00
Time pt last seen normal is known: Yes
Date last time pt seen normal: 10/21/24
Time last time pt seen normal: 15:00
NIH Stroke Score
Level of Consciousness: 0 - Alert
LOC Questions: 0-Answers both correctly
LOC Commands: 0-Performs both correctly
Best Horizontal Gaze: 0-Normal
Visual Leon: 0=Normal, no visual loss
Facial Palsy: 0=Normal, symmetrical
Motor - Right Arm: 1=Drift < 10 seconds
Motor - Left Arm: 0=No drift 10 seconds
Motor - Right Le-Drift < 5 seconds
Motor - Left Le-No drift 5 seconds
Limb Ataxia: 0-Absent
Sensation: 0-Normal
Best Language: 0-No aphasia
Dysarthria: 0-Normal
Extinction and Inattention: 0-No abnormality
NIH Total Score:: 2
Tenecteplase Contraindications
Inclusion and Exclusion criteria reviewed: Yes
Review of Systems
-
History Source: Patient
All other systems: Reviewed and negative
EENT: Negative Blurry Vision or Swallowing Difficulty
Respiratory: Negative Trouble Breathing
Cardiac: Negative Chest Pain
Abdomen/GI: Negative Incontinence of Stool
Genitourinary: Negative Incontinence
Musculoskeletal: Negative Back Pain or Neck Pain
Neuro: Negative Dizzy or Headache
Physical Exam
-
General: No Apparent Distress and Appears Stated Age
Eyes: OU Absent Papilledema, Round OU, [place] Conjunctivae and No Ptosis
HEENT: Anicteric and Moist Mucous Membranes
Neck: Full Range of Motion
Respiratory: No Dyspnea
Cardiac: No JVD
GI: Non-distended
Skin: Other (Chronic venous stasis changes)
Extremities: No Clubbing, No Cyanosis and Edema +1 (Right lower extremity)
Psych: Intact Judgement/Insight
Extended Neurological Exam
Mood & Affect: Mood Unremarkable and Affect Unremarkable
Attention Span & Concentration: Awake, Alert, Interactive and No Difficulty with 2 Step Request
Memory: Unremarkable
Tremor: Hand Tremor Absent and Head Tremor Absent
Speech: Quality Unremarkable and Quantity Unremarkable
Cranial Nerve II: Left Eye: Pupillary Reactivity Unremarkable, Pupillary Size Unremarkable and Visual Leon Intact
Cranial Nerve II: Right Eye: Pupillary Reactivity Unremarkable, Pupillary Size Unremarkable and Visual Leon Intact
Cranial Nerves III, IV, : Extraocular Movement: Extraocular Movement Full in all Directions
Cranial Nerve VII: Facial Symmetry: Normal Facial Symmetry
Cranial Nerve VIII: Hearing: Unremarkable Hearing to Normal Conversational Volume
Cranial Nerves IX, X: Palate Movement: Palate Elevation Symmetric
Cranial Nerve XI: Shoulder Shrug: Unremarkable
Cranial Nerve XII: Tongue Protusion: Midline
Muscle Strength, Overall: Full Throughout
Muscle Bulk & Tone: Bulk Unremarkable and Tone Unremarkable
Deep Tendon Reflexes: Trace Throughout
Touch Sensation: Unremarkable
Coordination: [id number] Testing Unremarkable
Babinski Sign: Absent Bilaterally
Gait & Station: Other (Ambulating with walker, does drag the right leg with ambulation mildly); Negative Up from Seated Without Problem
Data Reviewed
-
CT-A: Pending
MRI Head: Report Reviewed and Image Reviewed
Labs: Report Reviewed
Lipid Profile: Report Reviewed
Reviewed with: Physician, Patient and Family (Via phone)
Old Records: Summarized
Medications
-
Active Medications
Generic Name Dose Route Start Last Admin
Trade Name Freq PRN Reason Stop Dose Admin
Acetaminophen 650 mg 10/23/24 07:42
Acetaminophen 650 Mg Rectal Suppository RECTAL 11/20/24 07:41
Q4HPRN PRN
RAMESH, mild pain, or temp >100.4F
Acetaminophen 650 mg 10/23/24 07:42
Acetaminophen 325 Mg Tablet PO 11/20/24 07:41
Q4HPRN PRN
RAMESH, mild pain, or temp >100.4F
Amlodipine Besylate 5 mg 10/23/24 08:00
Amlodipine 5 Mg Tablet PO 11/20/24 07:59
DAILY DAVID
Aspirin 81 mg 10/23/24 08:00
Aspirin 81 Mg Chewable Tablet PO 11/20/24 07:59
DAILY DAVID
Atorvastatin Calcium 10 mg 10/23/24 08:00
Atorvastatin (Lipitor) 10 Mg Tablet PO 11/20/24 07:59
DAILY DAVID
Clopidogrel Bisulfate 75 mg 10/23/24 08:00
Clopidogrel 75 Mg Tablet PO 11/20/24 07:59
DAILY DAVID
Hydrochlorothiazide 25 mg 10/23/24 08:00
Hydrochlorothiazide 25 Mg Tablet PO 11/20/24 07:59
DAILY DAVID
Losartan Potassium 100 mg 10/23/24 08:00
Losartan 100 Mg Tablet PO 11/20/24 07:59
DAILY DAVID
Metoprolol Succinate 100 mg 10/23/24 08:00
Metoprolol 100 Mg Extended Release Tablet PO 11/20/24 07:59
BID DAVID
Multivitamins Therapeutic 1 tablet 10/23/24 08:00
Multivitamin Tablet PO 11/20/24 07:59
DAILY DAVID
Sodium Chloride 0 flush 10/23/24 06:00
Sodium Chloride 0.9% (Flush) Syringe IV 11/20/24 05:59
PER PROTOCOL DAVID
Vitamin C/Vitamin E 1 cap 10/23/24 08:00
Vit C/Vit E/Lutein/Min/[place]-3 (Ocuvite) Capsule PO 11/20/24 07:59
DAILY DAVID
Home Medications
�Medication �Instructions �Recorded
nitroglycerin 0.4 mg sublingual 0.4 mg sublingual [id number] PRN 03/11/19
tablet chest pain #25 tabs
losartan 100 1 tab PO DAILY Blood Pressure 11/24/22
mg-hydrochlorothiazide 25 mg tablet
kzemvgli-kh-avuog 300 mcg-K 60 1 tab PO DAILY Supplement 11/24/22
mcg-lycop 600 mcg-lutein 300 mcg
tablet (Centrum Silver Men)
aspirin 81 mg chewable tablet 81 mg PO DAILY #90 tabs 12/03/22
clopidogrel 75 mg tablet 75 mg PO DAILY #90 tabs 12/03/22
tramadol 50 mg tablet 50 mg PO DAILYPRN PRN severe pain 12/07/23
vit C 250 mg-vit E 90 mg-zinc 40 1 tab PO BID Supplement 12/07/23
mg-copper 1 ez-eftdah-ezzcst
capsule (PreserVision AREDS-2)
acetaminophen 325 mg tablet 650 mg PO Q6HPRN PRN mild pain 12/11/23
(Tylenol)
amlodipine 5 mg tablet 5 mg PO DAILY Blood Pressure 12/11/23
coenzyme Q10 100 mg capsule 200 mg PO DAILY Supplement 12/11/23
(CoQ-10)
metoprolol succinate 100 mg 100 mg PO BID Blood Pressure 12/11/23
tablet,extended release 24 hr
atorvastatin 10 mg tablet 10 mg PO DAILY High Cholesterol 03/18/24
dexamethasone 12 mg PO ZEE 10/23/24
Past History
Past History
ED Past Medical History: CAD, HTN, Hypercholesterolemia, Other (AAA with repair) and Other (Neuropathy of both legs, bilateral carotid artery stenosis)
ED Past Surgical History: Cardiac (Aortic stent 11/2022), Orthopedic (Lumbar laminectomy 2019, total hip replacement) and Other (AAA with repair and bilateral renal stenting 2022, left carotid endarterectomy 2023, cataract extraction)
Social History
Tobacco: Non-smoker
Alcohol: Occasional
Personal:
Living: with family
Family History
Family History: Other (Reviewed and noncontributory)
--- NOTE | 2024-10-23 09:08 | PTCARENOTE ---
Pt arrived to [facility] at 0730 on a stretcher. Pt ambulated with this RN to bathroom with a rolling walker with R sided weakness. Pt returned to bed w/o incident. Pt placed on air sampling and monitoring SB with BBB and PVCs. Pt has +1 RLE edema and b/l
bruising on both hips. NIHSS performed NIH score 0. Q4 neurological checks initiated. Bed locked and in lowest position. Care ongoing.
--- NOTE | 2024-10-23 09:21 | CM ---
Addendum entered by Narayan Owens 10/23/24 09:27:
OBS status explained to the pt, pt expressed his understanding, politely declined to sign, SELBY letter placed on chart, pt has a copy.
Original Note:
CM following with re: discharge planning.
Discussed in Rounds, reviewed pt's chart, met with pt.
Pt is an 84 year old male, admitted with primary dx of CVA vs TIA. MRO today.
Pt reports he lives with spouse in a 2SH, 1 steps to enter, has 3 supportive children. 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 No VN or SNF history. Pt stated he used to come to for outpatient
cardiac rehab. Pt reports he is [employer] , enrolled with [facility] for services.
Per RN, PT and OT evaluated the pt and acute rehab level of care recommended. Pt is aware and requested [facility]. A referral to [facility] made.
PCP: Nabil Cortes
[facility]
D/C plan: [facility].
CM will follow with discharge plan updates as hospitalization progresses
--- NOTE | 2024-10-23 09:30 | PTOTSP ---
Speech therapy
Presentation: Patient was fully oriented, followed commands, and was engaged in conversation with ARTIFICIAL TEETH INSPECTOR. Patient stated that his noted 'slurred speech' 10/22 but has since resolved. Patient denied any communicative deficits at this time as his
speech is at baseline, per patient.
Swallowing Function: ARTIFICIAL TEETH INSPECTOR observed patient with several presentations of ice chips, thin liquids (straw), puree, and regular consistency solids in which patient appeared to tolerate as he did not exhibit any overt clinical s/sx of aspiration or
difficulty with mastication/ manipulation. Patient denied any dysphagia complaints.
Recommendations:
1) Initiation of regular consistency solids and thin liquids
2) Standard aspiration precautions
3) Medications as tolerated
4) Consider speech evaluation if clinically indicated
Plan: ARTIFICIAL TEETH INSPECTOR will continue to follow to ensure tolerance of diet recommendations; pending hospitalization.
[2024-10-23] MEDS: COZAAR PO (09:33)
[2024-10-23] MEDS: LOW STRENGTH ASPIRIN PO (09:40)
[2024-10-23] MEDS: NORVASC PO (09:40)
[2024-10-23] MEDS: THERAGRAN PO (09:41)
[2024-10-23] MEDS: ORETIC PO (09:41)
[2024-10-23] MEDS: PLAVIX PO (09:41)
--- NOTE | 2024-10-23 09:51 | PTCARENOTE ---
Pt reports prior to coming to the hospital he took all of his morning medications. Dr. Castillo notified and it is ok for pt not to take this morning. Care ongoing.
--- NOTE | 2024-10-23 11:31 | PTCARENOTE ---
Stroke packet provided to pt.
--- NOTE | 2024-10-23 11:32 | PTCARENOTE ---
HR dipping into the 30's. Dr. Castillo made aware.
[2024-10-23 11:42] LABS: HDL Cholesterol 45 mg/dl; LDL Cholesterol, Calculated 79 mg/dl; Total Cholesterol 143 mg/dl (50-199); Triglyceride 95 mg/dl (10-149); Very Low Density Lipoprotein 19 mg/dl (0-30)
[2024-10-23 12:23] LABS: VerifyNow Aspirin 382 ARU; VerifyNow PRU 6 PRU (180-376)
--- NOTE | 2024-10-23 13:04 | W.PN.UPDATE ---
Addendum entered and electronically signed by Vincent Castillo DO 10/23/24 15:38:
Spoke with patient's [id number], Annabelle ([phone]), who is a physician. She is requesting transfer to [facility] where interventional team is present. Discussed with neurologist, currently no indication at this time for transfer. I will be
leaving service as of today, will defer to next provider on whether to pursue transfer. I discussed with Annabelle that he would be very low priority on transfer list, which she understood, and it may take days to weeks for bed to be available.
Original Note:
Update Note
Progress Note Update
H&P from 0433 this morning. I have reviewed the entirety of the patient's chart. I have independently evaluated the patient at the bedside today.
MRI and CT brain perfusion scan did come back with acute ischemic infarct of the left gucci. CTA still pending formal read. HR has been bradycardic at times, appears sinus, as low as high 30s to 40s per minute
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
Acute CVA of the gucci (left sided, 6 mm). Differentials include carotid disease, occult arrhythmia, other cerebrovascular disease. NIHSS low at this time with repetitive questions during conversation. LDL 79. Will continue with home DAPT and
statin. Start ezetimibe for LDL goal <70. May need to consider PCSK9 inhibitor as outpatient. Monitor on telemetry for arrhythmia. Check TTE. Follow-up CTA head and neck and consider carotid ultrasound. Continue with neurochecks and NIHSS.
Avoid hypotension. Check P2Y12 and consider escalating to Brilinta if levels indicative of limited efficacy
Sinus bradycardia. Likely related to cerebral ischemia and home metoprolol succinate at high dose. Will reduce metoprolol succinate to 75 mg twice daily and continue on telemetry. Follow-up TTE. Consider cardiology consult if persistent despite
dose de-escalation of metoprolol or abnormal findings on echo
Hypercalcemia. Calcium 10.5 on arrival. Possibly degree of dehydration though cannot rule out primary hyperparathyroidism. Will check iPTH level and continue to trend BMP
Leukocytosis. Likely reactive to CVA. No indication for antibiotics. Trend CBC and temperature curve
Cholesterol-lowering diet
Start SQ heparin
Full code
Expected discharge >48 hours
[2024-10-23] MEDS: ZETIA 10 MG PO (13:12)
[2024-10-23] MEDS: DECADRON 12 MG PO (14:02)
--- NOTE | 2024-10-23 14:50 | PTCARENOTE ---
Pt's came out to nurses station with pt's daughter on speaker phone. This RN directed the pt's back into the pt's room. This RN answered pt's family's questions. Pt's family expressed multiple concerns and expressed how they think the pt
should be transferred to [facility]. Pt's requesting the physician to call her daughter Annabelle who is also a physician. Both Dr. zepeda and Dr Ferrara notified. Care ongoing.
[2024-10-23] MEDS: TOPROL XL PO (20:39)
[2024-10-23] MEDS: HEPARIN 5000 UNITS SC (20:39)
[2024-10-23] MEDS: TOPROL XL 75 MG PO (21:22)
[2024-10-23] MEDS: OCUVITE SOFTGEL 1 CAP PO (21:47)
[2024-10-23] MEDS: LIPITOR 10 MG PO (21:47)
[2024-10-24] VITALS (8 sets, daily range): BP systolic 144–168; BP diastolic 68–94; PULSE 52
[2024-10-24 05:47] LABS: % Basophils 0.2 % (0-2); % Immature Granulocytes 0.3 % (0-0.5); % Lymphocytes 13.9 % (20.5-51.1); % Monocytes 8.1 % (1.7-9.3); % Neutrophils 77.5 % (42.2-75.2); Absolute Lymphocytes 1.3 10^3/uL (1.2-3.4); Absolute Monocytes 0.8 10^3/uL (0.1-0.6); Absolute Neutrophils 7.2 10^3/uL (1.4-6.5); Hematocrit 36.9 % (39.0-52.0); Hemoglobin 12.5 g/dL (13.0-18.0); Mean Corp Hgb Conc. 33.9 g/dL (33.0-37.0); Mean Corpuscular Hgb 29.4 pg (27.0-31.0); Mean Corpuscular Volume 86.8 fL (80.0-94.0); Mean Platelet Volume 10.2 fL (7.4-10.4); Nucleated Red Blood Cells % 0 % (-); Platelet Count 150 10^3/uL (130-400); Red Blood Cell Count 4.25 10^6/uL (4.70-6.10); White Blood Cell Count 9.3 10^3/uL (4.8-10.8)
[2024-10-24 06:13] LABS: Blood Urea Nitrogen 25 mg/dl (9-20); Calcium 9.9 mg/dl (8.4-10.2); Carbon Dioxide 26 mmol/L (22-30); Chloride 108 mmol/L (98-107); Estimated Creatinine Clearance 92 ml/min; Glucose 119 mg/dl (70-99); Sodium 139 mmol/L (135-145); eGFR > 60.00
[2024-10-24] MEDS: THERAGRAN 1 TABLET PO (08:28)
[2024-10-24] MEDS: ZETIA 10 MG PO (08:29)
[2024-10-24] MEDS: PLAVIX 75 MG PO (08:29)
[2024-10-24] MEDS: DECADRON 8 MG PO (08:29)
[2024-10-24] MEDS: COZAAR 100 MG PO (08:29)
[2024-10-24] MEDS: HEPARIN 5000 UNITS SC ×2 (08:30→20:57)
[2024-10-24] MEDS: ORETIC 25 MG PO (08:30)
[2024-10-24] MEDS: LOW STRENGTH ASPIRIN 81 MG PO (08:30)
[2024-10-24] MEDS: TOPROL XL 75 MG PO (08:30)
[2024-10-24] MEDS: NORVASC 5 MG PO (08:31)
--- NOTE | 2024-10-24 14:20 | W.PN.HOSP.TC ---
Addendum entered and electronically signed by Patti Denise MD 10/24/24 15:59:
I saw and evaluated the patient independently. I reviewed the resident�s note and agree with findings and plan as documented by Dr. Vega.
GENERAL: well developed, well nourished, male in no apparent distress
HEENT: NC/AT--no O2 requirements
HEART: regular rate and rhythm, +S1, +S2, ANA
LUNGS : clear to auscultation bilaterally
ABDOM: soft, nontender, nondistended, + bowel sounds
EXT: no cyanosis, clubbing, or edema
NEUROLOGIC: memory issues--asks same questions 3 times
Acute Pontine CVA --found on MRI 10/23/24--started on asa/plavix--LDL 79 but cannot tolerate high dose statins (statin myopathy)--zetia started--passed speech eval--therapy rec acute rehab--await PM&R input--plans for echo with bubble study--carotid
US with 50-69% right stenosis and left < 50% stenosis--patient states that he has weakness of bilateral lower extremities which progresses to the point that at the end of the day he is 'crawling' on the floor and he is perfectly fine in the
morning--this is not consistent with acute stroke--raises concern for myasthenia--ordering anticholinesterase receptor antibodies--await neuro input
Sinus Bradycardia-- DDx includes cerebral ischemia, beta yg overtherapeutic so dose decreased--consider cards consult--await echo
anemia--possible due to endoleak blood loss- 1.6 point drop in Hb today-- Continue to monitor Hb
Abdominal aortic aneurysm repair with identified endoleak--consult vascular surgery
DVT proph
code status--full code
spoke with patient AND at bedside re: plan as outlined above
Original Note:
Today's Communication/Plan
-
.
Assessment / Plan
Assessment / Plan
1. Acute Pontine CVA
- NIH Stroke Score 0-2 over course of admission
- Patient started on DAPT: ASA/Plavix
- P2Y12 testing amenable to Plavix
- LDL 79; goal of 70
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
- Ezetimibe started this admission. Consider PCSK9 inhibitor outpatient.
- Continue to monitor tele for arrhythmia
- TTE with bubble study (10/24):
- Carotid US (10/24):
- Calcified plaque is identified in the carotid bulb. Carotid velocity measurements are consistent with a 50-69% internal carotid artery stenosis. Similar to previous.
- Plaque is identified in the common carotid artery. Patent carotid endarterectomy. Carotid velocity measurements are consistent with less than 50% internal carotid artery stenosis.
- MRI (10/23):
1. 6.0 mm ACUTE ISCHEMIC INFARCT in the left side of the ANDREI.
2. Severe calcific atherosclerotic plaque and tortuosity of the left intracranial vertebral artery.
3. 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
4. Moderate white matter leukoaraiosis in both cerebral hemispheres.
5. Moderate bilateral temporal lobe volume loss.
- Considering the characteristics of the more subacute neurologic symptoms, will order AchR antibody screen
- Appreciate neurology recommendations
2. Sinus Bradycardia
- DDx includes cerebral ischemia, beta yg overtherapeutic
- Metoprolol dose decreased to 75mg BID (10/23)
- ECHO (10/24):
- Consider cardiology consult
3. Hypercalcemia (resolved)
4. Decreased Hb
- 1.6 point drop in Hb today
- Continue to monitor Hb
- Vascular Consult in the setting of Endoleak on outpatient imaging the day prior to arrival
Anticipated Discharge: 24 - 48 hours
Subjective/Interval History
-
Date of Service: October 24, 2024
Patient seen and examined while resting comfortably in bed. Patient states that he feels well this morning, has been able to walk around with his walker. When discussing course of present illness, patient endorsed that subacutely weakness has
tended to get worse as the day progresses. He then more acutely had right-handed fine motor weakness, slurred speech, right lower extremity weakness.
Objective Data
-
Labs:
Laboratory Results
10/24/24
05:12
WBC 9.3
Hgb 12.5 L
Hct 36.9 L
Plt Count 150
Sodium 139
Potassium 4.0
Chloride 108 H
Carbon Dioxide 26
BUN 25 H
Creatinine 0.7
Glucose 119 H
Calcium 9.9
Vital Signs:
Vital Signs
Temp Pulse Resp BP Pulse Ox
97.6 F 55 18 145/68 99
10/24/24 11:12 10/24/24 11:12 10/24/24 11:12 10/24/24 11:12 10/24/24 11:12
I&O
10/23/24 10/24/24 10/25/24
06:59 06:59 06:59
Intake Total 840 / 840
Balance 840 / 840
Review of Systems
-
History Source: Patient
Constitutional: Reports No Symptoms
Respiratory: Reports No Symptoms
Cardiac: Reports No Symptoms
Neuro: Reports Weakness (Right hand, right lower extremity)
Physical Exam
-
General: No Apparent Distress, Comfortable and Conversant; Negative Fever or Slurred Speech
HEENT: Normocephalic, Atraumatic and Other (Extraocular motion intact, carotid bruit not appreciated)
Respiratory: Clear to Auscultation; Negative Wheezes, Rales or Rhonchi
Cardiac: Regular Rhythm and S1/S2
GI: Soft and Nontender
Musculoskeletal: No Clubbing, No Cyanosis and No Edema
Skin: Warm
Neuro: Awake, Alert, Oriented, Central Nerve's Intact and Other (Mildly decreased right-handed archeologist strength when compared to the left, 4 out of 5 muscle strength in the right upper extremity, 3-4 out of 5 muscle strength in the right lower
extremity); Negative Slurred Speech or Facial Droop
Psych: Calm
Data Reviewed
-
CT Scan: Report Reviewed by me and Discussed with Patient
Ultrasound: Report Reviewed by me and Discussed with Patient
MRI: Report Reviewed by me and Discussed with Patient
Labs: Labs Reviewed by me and Discussed with Patient
--- NOTE | 2024-10-24 16:33 | CM ---
Patient seen at bedside with physicians. Patient requested review of OBS/SELBY status and CM updated patient now is INP. Patient requested Garry following discussion with therapy. CM will continue to follow for discharge planning needs.
Plan; Garry pending patient function
[2024-10-24] MEDS: LIPITOR 10 MG PO (21:00)
[2024-10-24] MEDS: OCUVITE SOFTGEL 1 CAP PO (21:00)
[2024-10-24] MEDS: FLUSH (NSS) 1 FLUSH IV (21:07)
[2024-10-25 03:13] VITALS: BP 163/82
--- NOTE | 2024-10-25 05:28 | PTCARENOTE ---
Patient with Bigeminy. Magnesium added to am labs.
[2024-10-25 05:52] LABS: Hematocrit 36.9 % (39.0-52.0); Hemoglobin 12.8 g/dL (13.0-18.0); Mean Corp Hgb Conc. 34.7 g/dL (33.0-37.0); Mean Corpuscular Hgb 29.8 pg (27.0-31.0); Mean Platelet Volume 10.2 fL (7.4-10.4); Platelet Count 163 10^3/uL (130-400); Red Blood Cell Count 4.29 10^6/uL (4.70-6.10); Red Cell Dist. Width 13.9 % (11.5-14.5); White Blood Cell Count 11.6 10^3/uL (4.8-10.8)
[2024-10-25 06:14] LABS: Blood Urea Nitrogen 24 mg/dl (9-20); Calcium 9.9 mg/dl (8.4-10.2); Carbon Dioxide 28 mmol/L (22-30); Chloride 107 mmol/L (98-107); Estimated Creatinine Clearance 92 ml/min; Glucose 101 mg/dl (70-99); Magnesium 2.2 mg/dl (1.6-2.3); Potassium 3.8 mmol/L (3.5-5.1); Sodium 138 mmol/L (135-145); eGFR > 60.00
[2024-10-25 07:15] VITALS: BP 152/90
--- NOTE | 2024-10-25 08:21 | W.PN.HOSP.TC ---
Addendum entered and electronically signed by Patti Denise MD 10/25/24 15:17:
I saw and evaluated the patient independently. I reviewed the resident�s note and agree with findings and plan as documented by Dr. Vega.
GENERAL: well developed, well nourished, male in no apparent distress
HEENT: NC/AT--no O2 requirements
HEART: regular rate and rhythm, +S1, +S2, ANA
LUNGS : clear to auscultation bilaterally
ABDOM: soft, nontender, nondistended, + bowel sounds
EXT: no cyanosis, clubbing, or edema
NEUROLOGIC: memory issues--asks same questions 3 times
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
US with 50-69% right stenosis and left < 50% stenosis--patient states that he has weakness of bilateral lower extremities which progresses to the point that at the end of the day he is 'crawling' on the floor and he is perfectly fine in the
morning--this is not consistent with acute stroke--raises concern for myasthenia--ordering anticholinesterase receptor antibodies--apprec neuro input, starting mestinon trial--EMG/NCS as outpatient
Sinus Bradycardia-- DDx includes cerebral ischemia, beta yg dose likely too high--so dose decreased--apprec cards consult
anemia--possible due to endoleak blood loss- 1.6 point drop in Hb today-- Continue to monitor Hb
Abdominal aortic aneurysm repair with identified endoleak--apprec vascular surgery--CT angio with large type II endoleak with progressive expansion of [place] abdominal aortic [place] aneurysm sac
DVT proph
code status--full code
spoke with patient AND at bedside re: plan as outlined above
Original Note:
Today's Communication/Plan
-
.
Assessment / Plan
Assessment / Plan
1. Acute Pontine CVA
- NIH Stroke Score 0-2 over course of admission
- Patient started on DAPT: ASA/Plavix
- P2Y12 testing amenable to Plavix
- 10/25: Plavix changed to Brilinta; closely monitor Hb
- LDL 79; goal of 70
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
- Ezetimibe started this admission. Consider PCSK9 inhibitor outpatient.
- Continue to monitor tele for arrhythmia
- TTE with bubble study (10/24): mild, MR/TR/LVH, no change from 2021; bubble study negative
- Carotid US (10/24):
- Calcified plaque is identified in the carotid bulb. Carotid velocity measurements are consistent with a 50-69% internal carotid artery stenosis. Similar to previous.
- Plaque is identified in the common carotid artery. Patent carotid endarterectomy. Carotid velocity measurements are consistent with less than 50% internal carotid artery stenosis.
- MRI (10/23):
1. 6.0 mm ACUTE ISCHEMIC INFARCT in the left side of the ANDREI.
2. Severe calcific atherosclerotic plaque and tortuosity of the left intracranial vertebral artery.
3. 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
4. Moderate white matter leukoaraiosis in both cerebral hemispheres.
5. Moderate bilateral temporal lobe volume loss.
- Considering the characteristics of the more subacute neurologic symptoms, will order AchR antibody screen
- If AchR antibody is negative, consider additional testing with anti-MUSK/anti- LRP4
- Appreciate neurology recommendations
- Change to Brilinta as above, antibody testing as above, Mestinon trial, outpatient NCS/EMG w/ RNS
- Follow up CK, TFT, ESR/CRP, B1/B12 in AM
2. Sinus Bradycardia
- DDx includes cerebral ischemia, beta yg overtherapeutic
- Metoprolol dose decreased to 75mg BID (10/23)
- ECHO (10/24): mild, MR/TR/LVH, no change from 2021; bubble study negative
- Metoprolol dose held yesterday PM and today AM; Norvasc increased to 10mg daily for BP control
- Appreciate cardiology reccs:
- In agreement with above plan for now
- Continue to hold Metoprolol in the setting of myasthenic workup given potential for worsening MG
3. Hypercalcemia (resolved)
4. Decreased Hb
- Hb 12.8, stable from yesterday (though 14.1 on admission)
- Continue to monitor Hb, particularly in setting of new AC
- Vascular Consult in the setting of Endoleak on outpatient imaging the day prior to arrival
5. Endoleak
- S/p percutaneous mesh aortic stent graft repair of AAA on 12/02/2022
- US Abdominal Aorta (10/21), outpatient day [employer]: Endoleak is identified. There is increased size of the excluded aneurysm sac, now measuring up to 7.3 cm
- Appreciate Vascular Surgery recommendations
- CTA A/P (10/25):
1. Aortobiiliac endograft in place. LARGE TYPE II ENDOLEAK from a lumbar artery with PROGRESSIVE EXPANSION of the ABDOMINAL AORTIC CHIGNIK LAGOON ANEURYSM SAC (now 6.5 cm diameter) and expansion of the right common iliac artery [place] aneurysm sac (now
2.9 cm diameter).
2. 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
3. Patent bilateral renal artery stents in place.
4. Severe atherosclerotic plaque in the proximal superior mesenteric artery.
5. Small right upper pole renal infarct or ischemia.
6. Small cysts and hemangiomas in the liver.
7. Mild splenomegaly.
8. Moderate to severe enlargement of the prostate gland.
9. Severe lower lumbar discogenic degenerative disease and facet joint arthrosis.
DVT PPx: Hep
Diet: Cholesterol Lowering
Code Status: Full
Anticipated Discharge: 24 - 48 hours
Subjective/Interval History
-
Date of Service: October 25, 2024
Patient seen and examined while resting comfortably in bed. Patient is at bedside. Patient notes no change in neurologic symptoms. Otherwise denies dizziness, chest pain, shortness of breath while walking to and from bathroom. HR remains in
the high 40s to low 50s despite holding metoprolol last night.
Objective Data
-
Labs:
Laboratory Results
10/25/24
05:16
WBC 11.6 H
Hgb 12.8 L
Hct 36.9 L
Plt Count 163
Sodium 138
Potassium 3.8
Chloride 107
Carbon Dioxide 28
BUN 24 H
Creatinine 0.7
Glucose 101 H
Calcium 9.9
Vital Signs:
Vital Signs
Temp Pulse Resp BP Pulse Ox
98.0 F 51 16 152/90 98
10/25/24 07:15 10/25/24 07:15 10/25/24 07:15 10/25/24 07:15 10/25/24 07:15
I&O
10/24/24 10/25/24 10/26/24
06:59 06:59 06:59
Intake Total 840 / 840 960 / 960
Balance 840 / 840 960 / 960
Review of Systems
-
History Source: Patient
Constitutional: Reports No Symptoms
Respiratory: Reports No Symptoms
Cardiac: Reports No Symptoms
Neuro: Reports Weakness (unchanged)
Physical Exam
-
General: Well Developed, Well Nourished, No Apparent Distress, Comfortable and Conversant
HEENT: Normocephalic, Atraumatic and Other (EOMI)
Respiratory: Clear to Auscultation; Negative Wheezes, Rales, Rhonchi or Crackles
Cardiac: Regular Rhythm, S1/S2 and Bradycardic
GI: Soft
Musculoskeletal: No Clubbing, No Cyanosis and No Edema
Skin: Warm
Neuro: Awake, Alert, Oriented and Other (4/5 amusement park ride mechanic strength in the right hand, left hand normal amusement park ride mechanic strength); Negative Slurred Speech or Facial Droop
Psych: Calm
Data Reviewed
-
CT Scan: Report Reviewed by me
Ultrasound: Report Reviewed by me and Discussed with Patient
Labs: Labs Reviewed by me and Discussed with Patient
[2024-10-25] MEDS: PLAVIX 75 MG PO (09:25)
[2024-10-25] MEDS: DECADRON 8 MG PO (09:25)
[2024-10-25] MEDS: COZAAR 100 MG PO (09:25)
[2024-10-25] MEDS: ZETIA 10 MG PO (09:26)
[2024-10-25] MEDS: THERAGRAN 1 TABLET PO (09:26)
[2024-10-25] MEDS: NORVASC 10 MG PO (09:26)
[2024-10-25] MEDS: ORETIC 25 MG PO (09:26)
[2024-10-25] MEDS: LOW STRENGTH ASPIRIN 81 MG PO (09:26)
[2024-10-25] MEDS: HEPARIN 5000 UNITS SC ×2 (09:27→20:52)
[2024-10-25 09:57] VITALS: BP 153/78; PULSE 51
--- NOTE | 2024-10-25 10:20 | CM ---
Patient accepted for [facility] when patient medically appropriate for transfer. CM will continue to follow for discharge planning needs.
Plan; [facility] when appropriate and a bed is available
--- NOTE | 2024-10-25 10:46 | CON.CAR ---
Addendum entered and electronically signed by Pari Arreaga MD 10/25/24 11:32:
I saw and evaluated the patient independantly. I reviewed the resident�s note and agree with findings and plan as documented in the resident�s note.
84-year-old male with a complex medical history is admitted for treatment of acute pontine ischemic stroke, evaluation for suspected myasthenia gravis and evaluation of abdominal aortic aneurysm repair with endoleak. He presented for evaluation of
lower extremity weakness, fatigue, dysarthria that progresses over the course of a day. We are asked to comment on bradycardia seen on telemetry. His is at the bedside and adds that history. Currently he is feeling well. She states his
speech is still off and you would recognize this if he knew him. He still has some lower extremity weakness. I reviewed the outpatient record and it appears that his heart rate is 50s to 60s. He denies any chest pain or shortness of breath.
On exam he has a regular rate and rhythm normal S1-S2 no murmurs or gallops were appreciated. Lungs were clear to auscultation bilaterally abdomen was soft nontender, extremities are warm well-perfused.
Telemetry showed sinus bradycardia no evidence of high-grade AV block, PVCs were seen.
EKG showed sinus bradycardia with left anterior fascicular block.
Regards to his bradycardia, this is asymptomatic and mild. Ideally we would continue beta-yg given his history of CAD with a chronically occluded RCA. However, as myasthenia gravis is an strong consideration for etiology of his neurologic
symptoms, would recommend discontinuing beta-yg at this time as it can worsen symptoms. Will increase his amlodipine as this will help manage not only his CAD but also his hypertension. Additionally, imaging revealed CVA, I am not sure it
explains his symptoms. However, would be more aggressive with secondary prevention. LDL should be less than 55. He has statin intolerance, will add Zetia. Neurology asking if can be changed to ticagrelor and lieu of clopidogrel given CVA on
therapy, no contraindication from a cardiovascular perspective.
Original Note:
Consultation
Consultation Request
Date/Time Consultation Requested: 10-24-24
Date/Time Consultation Performed: 10-25-24
Requesting Provider: Dr. Domingo Vega
Performing Provider: Dr. Pari Arreaga
Reason for Consultation: Sinus bradycardia
Medical History
-
Chief Complaint: right-sided UE and LE weakness, slurred speech
History of Present Illness:
Donte Macedo, 84-year-old male with a complex medical history is admitted for treatment of acute pontine ischemic stroke, evaluation for suspected myasthenia gravis and evaluation of abdominal aortic aneurysm repair with endoleak. He was in his usual
state of health until about early-October when he started having bilateral lower extremity weakness, fatigue that worsened through the day and tired/slurry speech that also got worse as the day progressed. This became significantly pronounced on
10-21-24 when he started experiencing right-sided weakness and unintelligible speech. Came to the emergency and was found to have an acute 6 mm left pontine ischemic infarct. Neurology saw him and was not a candidate for fibrinolytics. Currently
being evaluated for suspected MG. He was also found to have an endoleak in his AAA repair and vasular surgery is consulted on.
He has CAD with multivessel disease being managed medically on aspirin, clopidogrel, metoprolol, losartan, hydrochlorothiazide and atorvastatin. During this hospitalization, his heart rate was found to be in the high-40s to low-60s. Cardiology was
consulted for further input. His HR in the outpatient generally runs from 50-60s chronically. He has remained asymptomatic and is asymptomatic from a bradycardia standpoint. No lightheadedness, dizziness, palpitations, flushing, pre-syncope, chest
pain/tightness, increased edema or diaphoresis.
Past Medical History
Past Medical History: Other (abdominal aortic aneurysm status post aortic stent last year, coronary artery disease, mitral valve prolapse, hypertension, hyperlipidemia, bilateral carotid artery stenosis, lumbar stenosis, macular degeneration,
peripheral neuropathy, peripheral vascular disease, total hip replacement, cataracts)
Past Surgical History: Other (Abdominal aortic aneurysm stent, bilateral hip replacement, laminectomy, cataracts, carotid endarterectomy left side March 18, 2024)
Social History
Tobacco: Non-Smoker
Alcohol: None
Drug: None
Personal:
Employment: Retired
Family History
Family History: Reviewed & Not Pertinent
Allergies / Home Medications
Allergy/AdvReac Type Severity Reaction Status Date / Time
rosuvastatin (From Crestor) Allergy Myalgia Verified 03/18/24 08:31
atorvastatin (From Lipitor) AdvReac Myalgia Verified 03/18/24 08:30
�Medication �Instructions �Recorded �Confirmed �Type
nitroglycerin 0.4 mg sublingual 0.4 mg sublingual [id number] PRN 03/11/19 10/23/24 Rx
tablet chest pain #25 tabs
losartan 100 1 tab PO DAILY Blood Pressure 11/24/22 10/23/24 History
mg-hydrochlorothiazide 25 mg tablet
[id number] 300 mcg-K 60 1 tab PO DAILY Supplement 11/24/22 10/23/24 History
mcg-lycop 600 mcg-lutein 300 mcg
tablet (Centrum Silver Men)
aspirin 81 mg chewable tablet 81 mg PO DAILY #90 tabs 12/03/22 10/23/24 Rx
clopidogrel 75 mg tablet 75 mg PO DAILY #90 tabs 12/03/22 10/23/24 Rx
tramadol 50 mg tablet 50 mg PO DAILYPRN PRN severe pain 12/07/23 10/23/24 History
vit C 250 mg-vit E 90 mg-zinc 40 1 tab PO BID Supplement 12/07/23 10/23/24 History
mg-copper 1 [id number]
capsule (PreserVision AREDS-2)
acetaminophen 325 mg tablet 650 mg PO Q6HPRN PRN mild pain 12/11/23 10/23/24 History
(Tylenol)
amlodipine 5 mg tablet 5 mg PO DAILY Blood Pressure 12/11/23 10/23/24 History
coenzyme Q10 100 mg capsule 200 mg PO DAILY Supplement 12/11/23 10/23/24 History
(CoQ-10)
metoprolol succinate 100 mg 100 mg PO BID Blood Pressure 12/11/23 10/23/24 History
tablet,extended release 24 hr
atorvastatin 10 mg tablet 10 mg PO DAILY High Cholesterol 03/18/24 10/23/24 History
dexamethasone 12 mg PO ZEE Anti-Inflammatory 10/23/24 10/23/24 History
Review of Systems
-
History Source: Patient
All other systems: Negative unless noted
Constitutional: Fatigue
EENT: No Symptoms
Respiratory: No Symptoms
Cardiac: No Symptoms
Abdomen/GI: No Symptoms
: No Symptoms
Musculoskeletal: No Symptoms
Skin: No Symptoms
Neurological: Weakness
Endocrine: No Symptoms
Hematologic/Lymphatic: No Symptoms
Physical Exam
Vital Signs
Temp Pulse Resp BP Pulse Ox
98.0 F 51 16 152/90 98
10/25/24 07:15 10/25/24 09:26 10/25/24 07:15 10/25/24 09:26 10/25/24 07:15
Lab Results
10/25/24 05:16
10/25/24 05:16
Physical Exam
General: No Apparent Distress and Comfortable
HEENT: Normocephalic, Anicteric, Moist Mucous Membranes and Atraumatic
Respiratory: Clear and Non Labored Respirations
Cardiac: S1/S2 and Regular Rhythm
GI: Soft, Non Tender and Non Distended
Genito-urinary: No Costovertebral Tender
Musculoskeletal: No Clubbing, No Cyanosis and Edema (1+/trace BL LE)
Skin: Warm and Dry
Neuro: Awake, Alert, Oriented, No Motor Deficits and Nonfocal/Grossly Intact
Hematologic/Lymphatic: No Lymphadenopathy
Psych: Calm
Impression / Plan
-
Sinus bradycardia
- HR 50s-60s as an outpatient chronically, at goal for his CAD.
- Slightly lower this admission, into high-40s.
- As an outpatient he is on metoprolol succinate 50 mg twice a day.
- Would decrease to metoprolol succinate 50 mg once a day if he does not have MG.
- Hold metoprolol pending MG work-up.
Multivessel coronary artery disease
Valvular heart disease
- Stable and asymptomatic.
- Continue medical management.
Abdominal aortic aneurysm status-post stent
- Current endoleak.
- Vascular surgery consulted.
Bilateral carotid artery disease status-post L CEA
- Stable; continue medical management.
Primary hypertension
- Goal normotension.
- Increase amlodipine to 10 mg.
Hyperlipidemia
- Reports history of myalgias with increased atorvastatin dosing.
- Will need to switch to a different agent outpatient for LDL goal <55.
Lumbar stenosis
Macular degeneration
Peripheral neuropathy
Peripheral vascular disease
Total hip replacement
Cataracts
--- NOTE | 2024-10-25 11:27 | CON.VAS ---
Addendum entered and electronically signed by Ori Leo III, MD 10/25/24 14:38:
This patient was seen and examined in collaboration with FIONA Wolfe. I agree with the history and physical exam as well as the assessment and plan. I have the following additions:
Well-known to me from prior vascular surgery interventions
Previous fenestrated aortic stent repair
Previous left carotid endarterectomy
Surveillance duplex of aortic aneurysm recently revealed new endoleak which was not present on prior imaging from September 2023. There has been growth of the residual aneurysm sac.
Patient has no abdominal or low back complaints currently
Please obtain CT angiogram of the abdomen and pelvis to better evaluate the new endoleak.
Signed:
Ori Leo III, MD
Vascular Surgery
[facility]
Original Note:
Consultation
Consultation Request
Date/Time Consultation Performed: 10/25/2024 1100
Requesting Provider: Hospitalist
Performing Provider: Hanane Cifuentes, INSULATING MACHINE OPERATOR-C for Ori Leo III, MD
Reason for Consultation: Surveillance of AAA status post EVAR
Medical History
-
Chief Complaint: Right-sided upper extremity and lower extremity weakness with dysarthria
History of Present Illness:
This is an 84-year-old male with significant past medical history for CAD, hypertension, mitral valve prolapse, hyperlipidemia, bilateral carotid artery stenosis, abdominal aortic aneurysm, lumbar stenosis, macular degeneration, peripheral
neuropathy, and peripheral vascular disease who presented to outside hospital on 10/23/2024 reporting ongoing and fluctuating right upper extremity and right lower extremity weakness with onset 10/21/2024, he also noted accompanying dysarthria on
occasion this prompted admission for stroke workup. MRI on 10/23/2024 confirmed acute left pontine infarct, neurology following. Patient is known to our service as he underwent left carotid endarterectomy on 03/18/2025 and percutaneous mesh aortic
stent graft repair of AAA on 12/02/2022. Vascular surgery consulted for outpatient ultrasound noting endoleak with increased aneurysmal sac from prior surveillance imaging.
Past Medical History
Past Medical History: CAD, HTN, Valvular Disease (Mitral valve prolapse) and Other (Hyperlipidemia, bilateral carotid artery stenosis, abdominal aortic aneurysm, lumbar stenosis, macular degeneration peripheral neuropathy, peripheral vascular
disease)
Past Surgical History: Orthopedic (Total hip replacement bilateral, laminectomy) and Other (Fenestrated aortic stent graft repair 12/02/2022, left carotid endarterectomy 03/18/24, cataracts)
Social History
Tobacco: Non-Smoker
Alcohol: None
Drug: None
Personal:
Living: With Family
Allergies / Home Medications
Allergy/AdvReac Type Severity Reaction Status Date / Time
rosuvastatin (From Crestor) Allergy Myalgia Verified 03/18/24 08:31
atorvastatin (From Lipitor) AdvReac Myalgia Verified 03/18/24 08:30
�Medication �Instructions �Recorded �Confirmed �Type
nitroglycerin 0.4 mg sublingual 0.4 mg sublingual [id number] PRN 03/11/19 10/23/24 Rx
tablet chest pain #25 tabs
losartan 100 1 tab PO DAILY Blood Pressure 11/24/22 10/23/24 History
mg-hydrochlorothiazide 25 mg tablet
hpvdelmh-ne-kifel 300 mcg-K 60 1 tab PO DAILY Supplement 11/24/22 10/23/24 History
mcg-lycop 600 mcg-lutein 300 mcg
tablet (Centrum Silver Men)
aspirin 81 mg chewable tablet 81 mg PO DAILY #90 tabs 12/03/22 10/23/24 Rx
clopidogrel 75 mg tablet 75 mg PO DAILY #90 tabs 12/03/22 10/23/24 Rx
tramadol 50 mg tablet 50 mg PO DAILYPRN PRN severe pain 12/07/23 10/23/24 History
vit C 250 mg-vit E 90 mg-zinc 40 1 tab PO BID Supplement 12/07/23 10/23/24 History
mg-copper 1 [id number]
capsule (PreserVision AREDS-2)
acetaminophen 325 mg tablet 650 mg PO Q6HPRN PRN mild pain 12/11/23 10/23/24 History
(Tylenol)
amlodipine 5 mg tablet 5 mg PO DAILY Blood Pressure 12/11/23 10/23/24 History
coenzyme Q10 100 mg capsule 200 mg PO DAILY Supplement 12/11/23 10/23/24 History
(CoQ-10)
metoprolol succinate 100 mg 100 mg PO BID Blood Pressure 12/11/23 10/23/24 History
tablet,extended release 24 hr
atorvastatin 10 mg tablet 10 mg PO DAILY High Cholesterol 03/18/24 10/23/24 History
dexamethasone 12 mg PO ZEE Anti-Inflammatory 10/23/24 10/23/24 History
Review of Systems
-
History Source: Patient
Constitutional: Reports No Symptoms
EENT: Reports No Symptoms
Respiratory: Reports No Symptoms
Cardiac: Reports No Symptoms
Abdomen/GI: Reports No Symptoms
: Reports No Symptoms
Musculoskeletal: Reports Other (Right-sided weakness)
Skin: Reports No Symptoms
Neurological: Reports Other (Right upper extremity and right lower extremity weakness)
Physical Exam
Vital Signs
Temp Pulse Resp BP Pulse Ox
98.0 F 51 16 152/90 98
10/25/24 07:15 10/25/24 09:26 10/25/24 07:15 10/25/24 09:26 10/25/24 07:15
Lab Results
10/25/24 05:16
10/25/24 05:16
Physical Exam
General: No Apparent Distress
HEENT: Normocephalic, Anicteric and Atraumatic
Respiratory: Non Labored Respirations
Cardiac: Negative JVD
Musculoskeletal: No Edema
Skin: Warm
Neuro: AO x 3
Assessment / Plan
-
Assessment: 84-year-old male currently admitted for workup of right upper extremity lower extremity weakness concerning for stroke, additionally has history of AAA with FEVAR repair and in outpatient setting during routine surveillance ultrasound it
was demonstrated that there was an endoleak and increased size of excluded aneurysm sac.
Plan:
Had outpatient ultrasound with evidence of endoleak following of EVAR repair of AAA with increased size of exclude aneurysm sac, recommend CT angio of abdomen pelvis to further evaluate concern for endoleak, following results of scan can better
determine surgical plan and timing (outpatient versus inpatient intervention during this admission).
I performed this shared service with the attending. I evaluated the patient [id number] and have entered clinical documentation as shown in the encounter note. I performed the following component(s):�history and physical exam. Note that medical
decision making is not final until attested by vascular attending.
--- NOTE | 2024-10-25 11:51 | W.PN.NEURO.1 ---
Today's Communication / Plan
-
.
Neuro Assessment/Plan
Assessment
CT P indicates nonphysiologic multiple areas of inadequate perfusion
CTA head and neck failed to demonstrate abnormalities
MRI of brain performed in 2016 due to visual changes and impairment was normal
Acute onset of right leg and arm weakness and intermittent slurred speech with 10-day history of lower extremity weakness bilaterally.
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
Patient was not thought to be a candidate for tenecteplase or clot retrieval due to absence of a clot for retrieval as well as being out of timeframe from time of onset of symptoms
Plan
Continue aspirin and clopidogrel, check for efficacy
await CTA head and neck formal reading
Follow formal MRI of brain results
patient will need to have a replacement of Atorvastatin if LDL > 70 with Evolocumab as outpatient
Consider formal cognitive testing as outpatient
Provide medical educational materials
Goal of normotension, patient is more than 24 hours since onset of symptoms
Goal of normoglycemia
Rehabilitation evaluations and treatment
DVT prophylaxis
Will follow pending results.
Subjective/Objective
Subjective Data
Date of Service: October 25, 2024
Neurology Follow-up note.
HPI: This is an 84-year-old man who presented to [facility] on 10/22/2024 with right-sided weakness.
Mr. Macedo states that he developed progressive fluctuating proximal leg weakness worse at the end of the da yin in late September. He initially experienced difficulty getting out of the car and climbing stairs. Upon returning home last Thursday, he
noticed increased mobility issues and began using a cane more frequently. The weakness progressed to his right side, affecting his arms and hands, necessitating the use of a walker. By Thursday evening, the patient was unable to walk up stairs and
had to crawl, prompting an ER visit.
Mr. Macedo has noticed some changes in his speech, describing it as occasionally slurred, particularly towards the end of the day. This speech change was first noticed by the patient on Thursday, though friends had observed it during the vacation.
The patient has been compliant with his aspirin and Plavix including during his recent vacation. The patient is a former smoker, having quit 25-30 years ago. 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
Prior to his spinal surgery in 2019, the patient experienced lower back pain, which improved post-surgery. However, he reportedly developed 'neuropathy' presented with proximal leg weakness and imbalance following the surgery.
No reports of diplopia, dyspnea, muscle cramps, myalgias or change in sphincter function
ER VS: 173/91, 50-43, afebrile
EKG: Sinus bradycardia.
PDMP: Tramadol Hcl 50 Mg 30 TABS filled 06/11/2024.
Labs: LDL�79, P2Y12�-6(effective).
Brain MRI without stephanie (10/23/2024)�acute left pontine infarct.
CTA head/neck-70% R ICA stenosis, severe calcific atherosclerotic plaque and tortuosity of the left intracranial vertebral artery, R P1 congenital aplasia
Severe discogenic degenerative disease at C5/C6 and C6/C7
CD -50-69% R ICA stenosis, Patent L carotid endarterectomy
TTE- interatrial septum is intact with no evidence of shunting by color flow Doppler. No intracardiac mass or thrombus formation seen.
PMH: PAD, CAD, HTN, DLP, polyneuropathy, history of central spinal lumbar stenosis
PSH:L CEA, posterior laminectomies at L3 and L4, ARJUN, AAA repair, bilateral cataract surgery, renal artery stenting
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
FH: CAD
All: Rosuvastatin
ROS: Constitutional: Positive for fatigue
HEENT: Positive for chronic hearing problems
Eyes: Negative. Negative for photophobia, pain and visual disturbance.
Respiratory: Negative for cough, choking and shortness of breath.
Cardiovascular: Negative for chest pain, palpitations and leg swelling.
Gastrointestinal: Negative for abdominal pain and vomiting.
Endocrine: Negative. Negative for cold intolerance.
Genitourinary: Negative for dysuria, flank pain and urgency.
Musculoskeletal: Negative for back pain, gait problem, neck pain and neck stiffness.
Skin: Negative for rash.
Allergic/Immunologic: Negative. Negative for immunocompromised state.
Neurological: Positive for imbalance, right-sided and proximal leg weakness
Psychiatric/Behavioral: Negative for behavioral problems, confusion and hallucinations.
General: Well developed. In no acute distress.
Cardio: Regular rate and rhythm without murmur. Extremities are without cyanosis or edema.
Neuro:
Mental Status: Alert, oriented to person, place, and date. Normal attention and recall. Good fund of knowledge. Follows complex requests across the midline. Comprehension, naming, and repetition intact.
Cranial Nerves: Pupils are equally round, surgical. EOMs full. Visual tadeo full to confrontation. Mild L ptosis. No nystagmus. V1-V3 intact to light touch and pinprick bilaterally, symmetric. Face symmetric. Impaired hearing AU. The
palate elevated well. SCMs and traps 5/5. Tongue midline. Mild dysarthria.
Motor: Normal bulk and tone. No pronator or arm drift. Strength 5/5 throughout except for right triceps, deltoid�4 out of 5, right iliopsoas�4 out of 5, dorsiflexion�4 out of 5, left hip flexion�4+ out of 5. No clonus. Neck flexors/extensors 5/5.
Reflexes: 1+ throughout the upper extremities and 1 knees. Plantar responses flexor bilaterally.
Sensory: Absent vibration in the toes and left ankle
Coordination: No dysmetria or tremor.
Gait: deferred
Assessment and Plan:
I. Acute left pontine stroke. Likely etiology�small vessel disease. Clopidogrel treatment failure
II. Progressive fluctuating proximal weakness and dysarthria, rule out muscular junction disorder.
III. Moderate R ICA stenosis, asymptomatic
IV. PAD. History of L ICA stenosis, s/p L CEA
V. C-spine DJD
. History of lumbar spinal stenosis, s/p remote posterior laminectomies at L3 and L4
- Continue Telemetry monitoring
- Please switch Plavix to Brilinta 90 mg BID with close HB monitoring
- BP goal-normotension
- Lipitor 10 mg QHS. LDLs are at goal.
- Please switch Plavix 75 mg QD to Brilinta 90 mg BID
- Please check CK, TFTs, ESR, CRP, bit B12, vit B12, AChR ab(binding, blocking, modulating), MUSK ab, LRP4 ab
- Mestinon trial
- OP NCS/EMG with RNS
- Vascular surgery consult (can be done as outpatient)
- PT
- DVT prophylaxis.
I personally reviewed all radiology and labs along with past medical records pertinent to current medical problems. Total time spent in patient care is 60 minutes.
Thank you for allowing us to participate in the care of this patient. We will continue to follow. Please do not hesitate to contact us with any questions or concerns.
Objective Data
Vital Signs
Temp Pulse Resp BP Pulse Ox
36.7 C 51 16 152/90 98
10/25/24 07:15 10/25/24 09:26 10/25/24 07:15 10/25/24 09:26 10/25/24 07:15
Lab Results
10/25/24 05:16
10/25/24 05:16
Sodium 138 mmol/L (135-145) 10/25/24 05:16
Potassium 3.8 mmol/L (3.5-5.1) 10/25/24 05:16
BUN 24 mg/dl (9-20) H 10/25/24 05:16
Glucose 101 mg/dl (70-99) H 10/25/24 05:16
Calcium 9.9 mg/dl (8.4-10.2) 10/25/24 05:16
LDL Cholesterol, Calc 79 mg/dl 06/15/25 11:12
Patient Allergies
rosuvastatin (From Crestor) Allergy (Verified 03/18/24 08:31)
Myalgia
atorvastatin (From Lipitor) Adverse Reaction (Verified 03/18/24 08:30)
Myalgia
Vital Signs and Labs
-
Vital Signs and Labs:
Vital Signs
Temp Pulse Resp BP Pulse Ox
36.7 C 51 16 152/90 98
10/25/24 07:15 10/25/24 09:26 10/25/24 07:15 10/25/24 09:26 10/25/24 07:15
Lab Results
10/25/24 05:16
10/25/24 05:16
Sodium 138 mmol/L (135-145) 10/25/24 05:16
Potassium 3.8 mmol/L (3.5-5.1) 10/25/24 05:16
BUN 24 mg/dl (9-20) H 10/25/24 05:16
Glucose 101 mg/dl (70-99) H 10/25/24 05:16
Calcium 9.9 mg/dl (8.4-10.2) 10/25/24 05:16
LDL Cholesterol, Calc 79 mg/dl 10/23/24 11:12
Medications
-
Medications:
Generic Name Dose Route Start Last Admin
Trade Name Freq PRN Reason Stop Dose Admin
Acetaminophen 650 mg 10/23/24 07:42
Acetaminophen 650 Mg Rectal Suppository RECTAL 11/20/24 07:41
Q4HPRN PRN
RAMESH, mild pain, or temp >100.4F
Acetaminophen 650 mg 10/23/24 07:42
Acetaminophen 325 Mg Tablet PO 11/20/24 07:41
Q4HPRN PRN
RAMESH, mild pain, or temp >100.4F
Amlodipine Besylate 10 mg 10/25/24 08:00 10/25/24 09:26
Amlodipine 10 Mg Tablet PO 11/22/24 07:59 10 mg
DAILY DAVID Administration
Atorvastatin Calcium 10 mg 10/23/24 22:00 10/24/24 21:00
Atorvastatin (Lipitor) 10 Mg Tablet PO 11/20/24 21:59 10 mg
HS DAVID Administration
Dexamethasone 8 mg 10/24/24 08:00 10/25/24 09:25
Dexamethasone 4 Mg Tablet PO 10/26/24 23:55 8 mg
DAILY DAVID Administration
Dexamethasone 4 mg 10/27/24 08:00
Dexamethasone 4 Mg Tablet PO 10/29/24 23:55
DAILY DAVID
Ezetimibe 10 mg 10/23/24 13:00 10/25/24 09:26
Ezetimibe (Zetia) 10 Mg Tablet PO 11/20/24 12:59 10 mg
DAILY DAVID Administration
Heparin Sodium 5,000 units 10/23/24 20:00 10/25/24 09:27
Heparin 5,000 Units/Ml 1 Ml Vial SC 11/20/24 19:59 5,000 units
Q12 DAVID Administration
Hydrochlorothiazide 25 mg 10/23/24 08:00 10/25/24 09:26
Hydrochlorothiazide 25 Mg Tablet PO 11/20/24 07:59 25 mg
DAILY DAVID Administration
Losartan Potassium 100 mg 10/23/24 08:00 10/25/24 09:25
Losartan 100 Mg Tablet PO 11/20/24 07:59 100 mg
DAILY DAVID Administration
Metoprolol Succinate 50 mg 10/24/24 20:00
Metoprolol 50 Mg Extended Release Tablet PO 11/21/24 19:59
On Hold: 10/24/24 20:00 BID DAVID
Resume: 10/25/24 20:00
Multivitamins Therapeutic 1 tablet 10/23/24 08:00 10/25/24 09:26
Multivitamin Tablet PO 11/20/24 07:59 1 tablet
DAILY DAVID Administration
Pyridostigmine [place] 60 mg 10/25/24 16:00
Pyridostigmine 60 Mg Tablet PO 11/22/24 15:59
TID DAVID
Sodium Chloride 0 flush 10/23/24 06:00 10/24/24 21:07
Sodium Chloride 0.9% (Flush) Syringe IV 11/20/24 05:59 1 flush
PER PROTOCOL DAVID Administration
Ticagrelor 90 mg 10/25/24 20:00
Ticagrelor (Brilinta) 90 Mg Tablet PO 11/22/24 19:59
BID DAVID
Vitamin C/Vitamin E 1 cap 10/23/24 22:00 10/24/24 21:00
Vit C/Vit E/Lutein/Min/[place]-3 (Ocuvite) Capsule PO 11/20/24 21:59 1 cap
HS DAVID Administration
Home Medications
-
Home Medications
nitroglycerin 0.4 mg sublingual tablet 0.4 mg sublingual [id number] PRN chest pain #25 tabs 03/11/19
losartan 100 mg-hydrochlorothiazide 25 mg tablet 1 tab PO DAILY Blood Pressure 11/24/22
dccigzdt-kr-zmqoz 300 mcg-K 60 mcg-lycop 600 mcg-lutein 300 mcg tablet (Centrum Silver Men) 1 tab PO DAILY Supplement 11/24/22
aspirin 81 mg chewable tablet 81 mg PO DAILY #90 tabs 12/03/22
clopidogrel 75 mg tablet 75 mg PO DAILY #90 tabs 12/03/22
tramadol 50 mg tablet 50 mg PO DAILYPRN PRN severe pain 12/07/23
vit C 250 mg-vit E 90 mg-zinc 40 mg-copper 1 nh-bmnktm-przaja capsule (PreserVision AREDS-2) 1 tab PO BID Supplement 12/07/23
acetaminophen 325 mg tablet (Tylenol) 650 mg PO Q6HPRN PRN mild pain 12/11/23
amlodipine 5 mg tablet 5 mg PO DAILY Blood Pressure 12/11/23
coenzyme Q10 100 mg capsule (CoQ-10) 200 mg PO DAILY Supplement 12/11/23
metoprolol succinate 100 mg tablet,extended release 24 hr 100 mg PO BID Blood Pressure 12/11/23
atorvastatin 10 mg tablet 10 mg PO DAILY High Cholesterol 03/18/24
dexamethasone 12 mg PO ZEE Anti-Inflammatory 10/23/24
[2024-10-25 13:16] LABS: Creatine Phosphokinase 23 U/L (55-170)
[2024-10-25 13:19] LABS: C-Reactive Protein < 5.00 mg/L (0.0-10.00)
[2024-10-25 13:49] LABS: TSH Reflex To Free T4 2.48 uIU/ml (0.47-4.68)
[2024-10-25 14:25] LABS: Folate > 20.0 ng/ml (2.76-20)
[2024-10-25 15:20] LABS: Vitamin B12 825 pg/ml (239-931)
[2024-10-25 16:13] VITALS: BP 158/86
[2024-10-25 17:01] LABS: Erythrocyte Sed Rate 3 mm/hour (0-20)
[2024-10-25] MEDS: MESTINON 60 MG PO ×2 (17:06→22:09)
[2024-10-25 19:11] VITALS: BP 144/75
[2024-10-25] MEDS: TOPROL XL 50 MG PO (20:51)
[2024-10-25] MEDS: BRILINTA 90 MG PO (20:52)
[2024-10-25] MEDS: LIPITOR 10 MG PO (22:09)
[2024-10-25] MEDS: OCUVITE SOFTGEL 1 CAP PO (22:09)
[2024-10-25 23:22] VITALS: BP 152/79
[2024-10-26] VITALS (7 sets, daily range): BP systolic 126–179; BP diastolic 65–100
[2024-10-26 07:32] LABS: Hematocrit 38.6 % (39.0-52.0); Hemoglobin 13.4 g/dL (13.0-18.0); Mean Corp Hgb Conc. 34.7 g/dL (33.0-37.0); Mean Corpuscular Hgb 29.7 pg (27.0-31.0); Mean Corpuscular Volume 85.6 fL (80.0-94.0); Mean Platelet Volume 9.8 fL (7.4-10.4); Platelet Count 158 10^3/uL (130-400); Red Blood Cell Count 4.51 10^6/uL (4.70-6.10); Red Cell Dist. Width 13.7 % (11.5-14.5); White Blood Cell Count 10.9 10^3/uL (4.8-10.8)
[2024-10-26 07:40] LABS: Blood Urea Nitrogen 21 mg/dl (9-20); Calcium 9.6 mg/dl (8.4-10.2); Carbon Dioxide 28 mmol/L (22-30); Chloride 105 mmol/L (98-107); Estimated Creatinine Clearance 80 ml/min; Glucose 104 mg/dl (70-99); Potassium 3.7 mmol/L (3.5-5.1); Sodium 138 mmol/L (135-145); eGFR > 60.00
--- NOTE | 2024-10-26 08:28 | W.PN.CD ---
Addendum entered and electronically signed by Tray Archer MD 10/26/24 11:15:
I saw and examined the patient.
The HAND BULLDOZER's note was reviewed and I agree with the note.
Comment: Hold metop likely not needed in future.
Please reach out for further questions/concerns.
Original Note:
Today's Communication / Plan
-
* Hold metoprolol pending MG work-up.
* Cardiology will sign off; re-consult if needed.
Impression / Plan
-
Sinus bradycardia
- HR 50s-60s as an outpatient chronically, at goal for his CAD.
- Slightly lower this admission, into high-40s.
- As an outpatient he is on metoprolol succinate 50 mg twice a day.
- Would decrease to metoprolol succinate 50 mg once a day if he does not have MG; can be followed as an outpatient.
- Hold metoprolol pending MG work-up.
Multivessel coronary artery disease
Valvular heart disease
- Stable and asymptomatic.
- Continue medical management.
Abdominal aortic aneurysm status-post stent
- Current endoleak.
- Vascular surgery consulted.
Bilateral carotid artery disease status-post L CEA
- Stable; continue medical management.
Primary hypertension
- Goal normotension.
- Continue amlodipine to 10 mg.
Hyperlipidemia
- Reports history of myalgias with increased atorvastatin dosing.
- Will need to switch to a different agent outpatient for LDL goal <55.
Lumbar stenosis
Macular degeneration
Peripheral neuropathy
Peripheral vascular disease
Total hip replacement
Cataracts
Physical Exam
Vital Signs/Labs
Vital Signs
Temp Pulse Resp BP Pulse Ox
98.0 F 52 19 157/78 98
10/26/24 04:30 10/26/24 04:30 10/26/24 04:30 10/26/24 04:30 10/26/24 04:30
10/26/24 06:03
10/26/24 06:03
Magnesium 2.2 mg/dl (1.6-2.3) 10/25/24 05:16
Triglycerides 95 mg/dl (10-149) 10/23/24 11:12
LDL Cholesterol, Calc 79 mg/dl 10/23/24 11:12
VLDL Cholesterol, Calc 19 mg/dl (0-30) 10/23/24 11:12
HDL Cholesterol 45 mg/dl 10/23/24 11:12
Physical Exam
Constitutional: No acute distress and Comfortable
EENT: Anicteric and Moist mucous membranes
Cardiovascular: Rhythm & rate is regular, Pedal edema is absent (trace) and S1S2 is normal
Respiratory: Respiratory effort normal and Lungs clear to auscul.
GI: Soft and Non tender
Neuro/Psych: Alert, Oriented and Motor deficits absent
Data Reviewed
-
Date of Service: October 26, 2024
--- NOTE | 2024-10-26 08:30 | W.PN.HOSP.TC ---
Addendum entered and electronically signed by aPtti Denise MD 10/26/24 17:37:
I saw and evaluated the patient independently. I reviewed the resident�s note and agree with findings and plan as documented by Dr. Vega.
Pt says that he felt much better but that his weakness now waxes and wanes.
GENERAL: well developed, well nourished, male in no apparent distress
HEENT: NC/AT--no O2 requirements
HEART: regular rate and rhythm, +S1, +S2, ANA
LUNGS : clear to auscultation bilaterally
ABDOM: soft, nontender, nondistended, + bowel sounds
EXT: no cyanosis, clubbing, or edema
NEUROLOGIC: memory issues
Acute Pontine CVA --found on MRI 10/23/24--started on asa/plavix which was changed to Brilinta--LDL 79 but cannot tolerate high dose statins (statin myopathy) so doing mod dose--zetia started--passed speech eval--therapy rec acute rehab--await PM&R
input--echo without significant issues--carotid US with 50-69% right stenosis and left < 50% stenosis--patient states that he has weakness of bilateral lower extremities which progresses to the point that at the end of the day he is 'crawling' on
the floor and he is perfectly fine in the morning--this is not consistent with acute stroke--raises concern for myasthenia--ordering anticholinesterase receptor antibodies, neuro ordering rest of lab workup--apprec neuro input, cont Mestinon
-EMG/NCS as outpatient
Sinus Bradycardia-- DDx includes cerebral ischemia, beta yg dose likely too high--stopped due to myasthenia concerns--apprec cards consult
anemia--possible due to endoleak blood loss-- drop in Hgb with rebound -- Continue to monitor Hgb
Abdominal aortic aneurysm repair with identified endoleak--apprec vascular surgery--CT angio with large type II endoleak with progressive expansion of cahuilla abdominal aortic cahuilla aneurysm sac--outpt IR eval at [facility] at d/c
hyperglycemia--modest increase--likely from 12 mg decadron daily as opposed to 12 mg THURSDAY as indicated on home med list
DVT proph
code status--full code
spoke with patient, , son AND daughter by phone and at bedside re: plan as outlined above
Original Note:
Today's Communication/Plan
-
.
Assessment / Plan
Assessment / Plan
1. Acute Pontine CVA
- NIH Stroke Score 0-2 over course of admission
- Patient started on DAPT: ASA/Plavix
- P2Y12 testing amenable to Plavix
- 10/25: Plavix changed to Brilinta; closely monitor Hb, stable today
- LDL 79; goal of 70
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
- Ezetimibe started this admission. Consider PCSK9 inhibitor outpatient.
- Continue to monitor tele for arrhythmia; no events thus far
- TTE with bubble study (10/24): mild, MR/TR/LVH, no change from 2021; bubble study negative
- Carotid US (10/24):
- Calcified plaque is identified in the carotid bulb. Carotid velocity measurements are consistent with a 50-69% internal carotid artery stenosis. Similar to previous.
- Plaque is identified in the common carotid artery. Patent carotid endarterectomy. Carotid velocity measurements are consistent with less than 50% internal carotid artery stenosis.
- MRI (10/23):
1. 6.0 mm ACUTE ISCHEMIC INFARCT in the left side of the ANDREI.
2. Severe calcific atherosclerotic plaque and tortuosity of the left intracranial vertebral artery.
3. 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
4. Moderate white matter leukoaraiosis in both cerebral hemispheres.
5. Moderate bilateral temporal lobe volume loss.
- Considering the characteristics of the more subacute neurologic symptoms, will order AchR antibody screen
- If AchR antibody is negative, consider additional testing with anti-MUSK/anti- LRP4
- Appreciate neurology recommendations
- Change to Brilinta as above, antibody testing as above, Mestinon trial, outpatient NCS/EMG w/ RNS
- Follow up CK, TFT, ESR/CRP, B1/B12: all WNL
2. Sinus Bradycardia
- DDx includes cerebral ischemia, beta yg overtherapeutic
- Metoprolol dose decreased to 75mg BID (10/23)
- ECHO (10/24): mild, MR/TR/LVH, no change from 2021; bubble study negative
- Metoprolol dose held yesterday PM and today AM; Norvasc increased to 10mg daily for BP control
- Appreciate cardiology reccs:
- In agreement with above plan for now
- Continue to hold Metoprolol in the setting of myasthenic workup given potential for worsening MG
3. Hypercalcemia (resolved)
4. Decreased Hb
- Hb 12.8, stable from yesterday (though 14.1 on admission)
- Continue to monitor Hb, particularly in setting of new AC
- Vascular Consult in the setting of Endoleak on outpatient imaging the day prior to arrival
5. Endoleak
- S/p percutaneous mesh aortic stent graft repair of AAA on 12/02/2022
- Abdominal Aorta (10/21), outpatient day BUREAU CHIEF: Endoleak is identified. There is increased size of the excluded aneurysm sac, now measuring up to 7.3 cm
- Appreciate Vascular Surgery recommendations
- CTA A/P (10/25):
1. Aortobiiliac endograft in place. LARGE TYPE II ENDOLEAK from a lumbar artery with PROGRESSIVE EXPANSION of the ABDOMINAL AORTIC WILTON ANEURYSM SAC (now 6.5 cm diameter) and expansion of the right common iliac artery cahuilla aneurysm sac (now
2.9 cm diameter).
2. 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
3. Patent bilateral renal artery stents in place.
4. Severe atherosclerotic plaque in the proximal superior mesenteric artery.
5. Small right upper pole renal infarct or ischemia.
6. Small cysts and hemangiomas in the liver.
7. Mild splenomegaly.
8. Moderate to severe enlargement of the prostate gland.
9. Severe lower lumbar discogenic degenerative disease and facet joint arthrosis.
6. Myasthenia Gravis
- Marked improvement in symptoms s/p Mestinon therapy
- This provides diagnostic value but autoantibody testing is still pending.
- Continue Mestinon in the outpatient setting
- Follow up with Neurology in the outpatient setting for additional recommendations and/or medication changes/additions
- Outpatient CT Chest to r/o thymoma
- Outpatient EMG
DVT PPx: Hep
Diet: Cholesterol Lowering
Code Status: Full
DISCHARGE TO [facility] TODAY
Anticipated Discharge: Today
Subjective/Interval History
-
Date of Service: October 26, 2024
Patient seen and examined while sitting comfortably in chair about to order breakfast. States that he overall feeling well this morning and slightly better from a neurologic standpoint. Feels that last night he did not have as bad symptoms as he
usually does and is feeling a little stronger on right side this morning as well. Denies RAMESH, vision changes, CP, SOB, abdominal pain, changes in bowel habits.
Objective Data
-
Labs:
Laboratory Results
10/26/24
06:03
WBC 10.9 H
Hgb 13.4
Hct 38.6 L
Plt Count 158
Sodium 138
Potassium 3.7
Chloride 105
Carbon Dioxide 28
BUN 21 H
Creatinine 0.8
Glucose 104 H
Calcium 9.6
Vital Signs:
Vital Signs
Temp Pulse Resp BP Pulse Ox
98.0 F 52 19 157/78 98
10/26/24 04:30 10/26/24 04:30 10/26/24 04:30 10/26/24 04:30 10/26/24 04:30
I&O
10/25/24 10/26/24 10/27/24
06:59 06:59 06:59
Intake Total 960 / 960 1140 / 1140
Balance 960 / 960 1140 / 1140
Review of Systems
-
History Source: Patient
Constitutional: Reports No Symptoms
Respiratory: Reports No Symptoms
Cardiac: Reports No Symptoms
Neuro: Reports Weakness (improving)
Physical Exam
-
General: Well Developed, Well Nourished, No Apparent Distress and Comfortable
HEENT: Normocephalic, Atraumatic and Other (EOMI)
Respiratory: Clear to Auscultation and Non Labored Respirations; Negative Wheezes, Rales or Rhonchi
Cardiac: Regular Rhythm and S1/S2
GI: Soft
Musculoskeletal: No Clubbing, No Cyanosis and No Edema
Skin: Warm
Neuro: Awake, Alert, Oriented and Other (career technical counselor strength slightly decreased on right compared to left, but improved from yesterday; 4/5 RUE strength but improved from yesterday, 4/5 RLE strength)
Data Reviewed
-
Labs: Labs Reviewed by me and Discussed with Patient
[2024-10-26] MEDS: NORVASC 10 MG PO (08:57)
[2024-10-26] MEDS: MESTINON 60 MG PO ×3 (08:57→22:19)
[2024-10-26] MEDS: ZETIA 10 MG PO (08:57)
[2024-10-26] MEDS: HEPARIN 5000 UNITS SC ×2 (08:58→19:38)
[2024-10-26] MEDS: ORETIC 25 MG PO (08:58)
[2024-10-26] MEDS: BRILINTA 90 MG PO ×2 (08:59→19:38)
[2024-10-26] MEDS: COZAAR 100 MG PO (08:59)
[2024-10-26] MEDS: THERAGRAN 1 TABLET PO (08:59)
[2024-10-26] MEDS: DECADRON 8 MG PO (09:00)
--- NOTE | 2024-10-26 15:57 | W.PN.UPDATE ---
Update Note
Progress Note Update
I personally reviewed the CTA A/P. On delayed phase imaging he has evidence of a large endoleak in the mid sac which is likely a type II from lumbar branches. I do not see any clear type I endoleak on arterial phase either proximal or distal. I do
not see any clear type III endoleak. His aneurysm sac has grown in size compared to the prior imaging (currently 6.5 cm vs 5.6 cm in 09/2023). My recommendation is that he see Dr. Ok Evans at the [facility] (interventional
radiology) for embolization of this endoleak. We will provide him and his with the contact information so that they can obtain an appointment and follow through with this recommendation. I will plan to regroup with Piyush Remington following this.
This recommendation was communicated to the inpatient medicine team.
--- NOTE | 2024-10-26 17:02 | CM ---
Patient seen at bedside with physicians on [address]. Patient accepted to [facility] pending bed availability possible transfer to tomorrow. ADDIE tt with liaison of [facility] and await response as to bed availability. [facility] completed and signed form placed on chart.
Plan;Garry
[2024-10-26] MEDS: LIPITOR 20 MG PO (22:19)
[2024-10-26] MEDS: OCUVITE SOFTGEL 1 CAP PO (22:19)
[2024-10-27 03:11] VITALS: BP 171/91
--- NOTE | 2024-10-27 07:21 | W.PN.HOSP.TC ---
Addendum entered and electronically signed by Patti Denise MD 10/27/24 16:21:
I saw and evaluated the patient independently. I reviewed the resident�s note and agree with findings and plan as documented by Dr. Vega.
Pt says that he felt much better but that his weakness now waxes and wanes.
GENERAL: well developed, well nourished, male in no apparent distress
HEENT: NC/AT--no O2 requirements
HEART: regular rate and rhythm, +S1, +S2, ANA
LUNGS : clear to auscultation bilaterally
ABDOM: soft, nontender, nondistended, + bowel sounds
EXT: no cyanosis, clubbing, or edema
NEUROLOGIC: memory issues
Acute [place] CVA --found on MRI 10/23/24--started on asa/plavix which was changed to Brilinta--LDL 79 but cannot tolerate high dose statins (statin myopathy) so doing mod dose--zetia started--passed speech eval--therapy rec acute rehab--apprec PM&R
input--echo without significant issues--carotid US with 50-69% right stenosis and left < 50% stenosis--patient states that he has weakness of bilateral lower extremities which progresses to the point that at the end of the day he is 'crawling' on
the floor and he is perfectly fine in the morning--this is not consistent with acute stroke--raises concern for myasthenia--ordering anticholinesterase receptor antibodies, neuro ordering rest of lab workup--apprec neuro input, cont Mestinon
-EMG/NCS as outpatient
Sinus Bradycardia-- DDx includes cerebral ischemia, beta yg dose likely too high--stopped due to myasthenia concerns--apprec cards consult
anemia--possible due to endoleak blood loss-- drop in Hgb with rebound -- Continue to monitor Hgb
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
hyperglycemia--modest increase--likely from 12 mg decadron taper as opposed to 12 mg THURSDAY as indicated on home med list--HGB A1C 5.4
DVT proph
code status--full code
OK for Garry
Original Note:
Today's Communication/Plan
-
.
Assessment / Plan
Assessment / Plan
1. Acute [place] CVA
- NIH Stroke Score 0-2 over course of admission
- Patient started on DAPT: ASA/Plavix
- P2Y12 testing amenable to Plavix
- 10/25: Plavix changed to Brilinta;
- LDL 79; goal of 70
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
- Ezetimibe started this admission. Consider PCSK9 inhibitor outpatient.
- Continue to monitor tele for arrhythmia; no events thus far
- TTE with bubble study (10/24): mild, MR/TR/LVH, no change from 2021; bubble study negative
- Carotid US (10/24):
- Calcified plaque is identified in the carotid bulb. Carotid velocity measurements are consistent with a 50-69% internal carotid artery stenosis. Similar to previous.
- Plaque is identified in the common carotid artery. Patent carotid endarterectomy. Carotid velocity measurements are consistent with less than 50% internal carotid artery stenosis.
- MRI (10/23):
1. 6.0 mm ACUTE ISCHEMIC INFARCT in the left side of the ANDREI.
2. Severe calcific atherosclerotic plaque and tortuosity of the left intracranial vertebral artery.
3. 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
4. Moderate white matter leukoaraiosis in both cerebral hemispheres.
5. Moderate bilateral temporal lobe volume loss.
- Considering the characteristics of the more subacute neurologic symptoms, will order AchR antibody screen
- If AchR antibody is negative, consider additional testing with anti-MUSK/anti- LRP4
- Appreciate neurology recommendations
- Change to Brilinta as above, antibody testing as above, Mestinon trial, outpatient NCS/EMG w/ RNS
- Follow up CK, TFT, ESR/CRP, B1/B12: all WNL
2. Sinus Bradycardia
- DDx includes cerebral ischemia, beta yg overtherapeutic
- Metoprolol dose decreased to 75mg BID (10/23)
- ECHO (10/24): mild, MR/TR/LVH, no change from 2021; bubble study negative
- Metoprolol dose held yesterday PM and today AM; Norvasc increased to 10mg daily for BP control
- 10/27: Elevated BP overnight; patient endorses chronic symptoms of BPH but not being treated; start Doxazosin
- Appreciate cardiology reccs:
- In agreement with above plan for now
- Continue to hold Metoprolol in the setting of myasthenic workup given potential for worsening MG
3. Hypercalcemia (resolved)
4. Decreased Hb
- Hb 12.8, stable from yesterday (though 14.1 on admission)
- Continue to monitor Hb, particularly in setting of new AC
- Vascular Consult in the setting of Endoleak on outpatient imaging the day prior to arrival
5. Endoleak
- S/p percutaneous mesh aortic stent graft repair of AAA on 12/02/2022
- Abdominal Aorta (10/21), outpatient day [employer]ATOR: Endoleak is identified. There is increased size of the excluded aneurysm sac, now measuring up to 7.3 cm
- Appreciate Vascular Surgery recommendations
- CTA A/P (10/25):
1. Aortobiiliac endograft in place. LARGE TYPE II ENDOLEAK from a lumbar artery with PROGRESSIVE EXPANSION of the ABDOMINAL AORTIC CONFEDERATED COOS ANEURYSM SAC (now 6.5 cm diameter) and expansion of the right common iliac artery chicken ranch aneurysm sac (now
2.9 cm diameter).
2. 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
3. Patent bilateral renal artery stents in place.
4. Severe atherosclerotic plaque in the proximal superior mesenteric artery.
5. Small right upper pole renal infarct or ischemia.
6. Small cysts and hemangiomas in the liver.
7. Mild splenomegaly.
8. Moderate to severe enlargement of the prostate gland.
9. Severe lower lumbar discogenic degenerative disease and facet joint arthrosis.
6. Myasthenia Gravis
- Marked improvement in symptoms s/p Mestinon therapy
- This provides diagnostic value but autoantibody testing is still pending.
- Continue Mestinon in the outpatient setting
- Follow up with Neurology in the outpatient setting for additional recommendations and/or medication changes/additions
- Outpatient CT Chest to r/o thymoma
- Outpatient EMG
7. BPH
- Patient endorses chronic symptoms of BPH (slow urinary stream, dribbling)
- Start doxazosin for dual therapeutics (HTN/BPH)
DVT PPx: Hep
Diet: Cholesterol Lowering
Code Status: Full
DISCHARGE TO [facility] TODAY
Anticipated Discharge: Today
Subjective/Interval History
-
Date of Service: October 27, 2024
Patient seen and examined while resting comfortably in bed. Patient states that he slept well. Has no acute complaints this morning. States he feels his neurologic symptoms are better this morning. Overnight blood pressures with systolic in
160s. Patient denies chest pain, shortness of breath, dizziness, headache.
Objective Data
-
Vital Signs:
Vital Signs
Temp Pulse Resp BP Pulse Ox
97.4 F 52 18 171/91 100
10/27/24 03:11 10/27/24 03:11 10/27/24 03:11 10/27/24 03:11 10/27/24 03:11
I&O
10/26/24 10/27/24 10/28/24
06:59 06:59 06:59
Intake Total 1140 / 1140 600 / 600
Balance 1140 / 1140 600 / 600
Review of Systems
-
History Source: Patient
Constitutional: Reports No Symptoms
Respiratory: Reports No Symptoms
Cardiac: Reports No Symptoms
Neuro: Reports No Symptoms
Physical Exam
-
General: Well Developed, Well Nourished, No Apparent Distress, Comfortable and Conversant; Negative Slurred Speech
HEENT: Normocephalic, Atraumatic and Other (EOMI)
Respiratory: Clear to Auscultation and Non Labored Respirations; Negative Wheezes, Rales, Rhonchi or Crackles
Cardiac: Regular Rhythm and S1/S2
GI: Soft
Musculoskeletal: No Clubbing, No Cyanosis and No Edema
Skin: Warm and Dry
Neuro: Awake, Alert, Oriented and Other (Continued marked improvement in right hand mystery shopper strength. Improvement in right upper extremity and right lower extremity weakness. Now barely noticeable when compared to the left side. Patient much more
easily able to complete [id number] testing with both feet.)
Psych: Calm
[2024-10-27 07:26] LABS: Glycohemoglobin (HgbA1c) 5.4 % (4.0-5.6)
[2024-10-27] MEDS: ZETIA 10 MG PO (07:37)
[2024-10-27] MEDS: DECADRON 4 MG PO (07:37)
[2024-10-27] MEDS: MESTINON 60 MG PO ×2 (07:38→15:12)
[2024-10-27] MEDS: BRILINTA 90 MG PO (07:38)
[2024-10-27] MEDS: THERAGRAN 1 TABLET PO (07:38)
[2024-10-27] MEDS: HEPARIN 5000 UNITS SC (07:38)
[2024-10-27] MEDS: NORVASC 10 MG PO (07:38)
[2024-10-27] MEDS: COZAAR 100 MG PO (07:38)
[2024-10-27] MEDS: ORETIC 25 MG PO (07:39)
[2024-10-27 08:01] VITALS: BP 168/90
--- NOTE | 2024-10-27 08:45 | CON.MD ---
Consultation - Medical
-
Referring Provider: Dr. Denise
Chief Complaint: CVA,
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
stenosis, macular degeneration, peripheral neuropathy, peripheral vascular disease, total hip replacement, cataracts) presented to [facility] on 10/22/2024 with right-sided weakness.
He developed progressive fluctuating proximal leg weakness worse at the end of the day in late September. He initially experienced difficulty getting out of the car and climbing stairs. Upon returning home last Thursday, he noticed increased mobility issues
and began using a cane more frequently. The weakness progressed to his right side, affecting his arms and hands, necessitating the use of a walker. By Thursday evening, he was unable to walk up stairs and had to crawl, prompting an ER visit.
Mr. Macedo has noticed some changes in his speech on Thursday, though friends had observed it during the vacation. He describes it as occasionally slurred, particularly towards the end of the day. He has been compliant with his aspirin and Plavix.
The patient is a former smoker, having quit 25-30 years ago. 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
Prior to his spinal surgery in 2019, the patient experienced lower back pain, which improved post-surgery. However, he reportedly developed 'neuropathy' presented with proximal leg weakness and imbalance following the surgery. No reports of
diplopia, dyspnea, muscle cramps, myalgias or change in sphincter function
MRI of Brain - 10/23/2024
. 6.0 mm ACUTE ISCHEMIC INFARCT in the left side of the ANDREI.
2. Severe calcific atherosclerotic plaque and tortuosity of the left intracranial vertebral artery.
3. 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
4. Moderate white matter leukoaraiosis in both cerebral hemispheres.
5. Moderate bilateral temporal lobe volume loss.
Patient was not thought to be a candidate for tenecteplase or clot retrieval due to absence of a clot for retrieval as well as being out of timeframe from time of onset of symptoms. He was started on the combination of aspirin and Plavix. which was
changed to Brilinta--LDL 79 but cannot tolerate high dose statins (statin myopathy) so doing mod dose--zetia and would need Evolocumab as outpatient.
Echo without significant issues--carotid US with 50-69% right stenosis and left < 50% stenosis. TTE with bubble study (10/24): mild, MR/TR/LVH, no change from 2021; bubble study negative
-
Carotid US (10/24):
- Calcified plaque is identified in the carotid bulb. Carotid velocity measurements are consistent with a 50-69% internal carotid artery stenosis. Similar to previous.
- Plaque is identified in the common carotid artery. Patent carotid endarterectomy. Carotid velocity measurements are consistent with less than 50% internal carotid artery stenosis
Due to wax and wane in the weakness of his bilateral lower extremities not consistent with an acute stroke raise concern for myasthenia. Neurology ordered anticholinesterase receptor antibodies. Was treated with Mestinon with improvement. Neuro
recommended outpatient NCS/CM G with RNS. CK, TFT, ESR/CRP, B1/B12: all WNL
S/p percutaneous mesh aortic stent graft repair of AAA on 12/02/2022. 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 There is increased size of the excluded aneurysm sac, now measuring up to 7.3 cm
- CTA of abdomen reviewed by, Dr. Leo as followed and with the following recommendation: evidence of a large endoleak in the mid sac which is likely a type II from lumbar branches. I do not see any clear type I endoleak on arterial phase either
proximal or distal. I do not see any clear type III endoleak. His aneurysm sac has grown in size compared to the prior imaging (currently 6.5 cm vs 5.6 cm in 09/2023). My recommendation is that he see Dr. Ok Evans at [facility] (interventional radiology) for embolization of this endoleak. We will provide him and his with the contact information so that they can obtain an appointment and follow through with this recommendation. I will plan to regroup
with Mr. Macedo following this.
Sinus Bradycardia-- DDx includes cerebral ischemia, beta yg dose likely too high--Metoprolol stopped due to myasthenia concerns--per cardiology.
Past Medical History: Abdominal aortic aneurysm s/p aortic stent last year, endoleak�6.3 cm, CAD, mitral valve prolapse, hypertension, hyperlipidemia, bilateral carotid artery stenosis, lumbar stenosis, macular degeneration, peripheral neuropathy,
peripheral vascular disease, total hip replacement, cataracts
Procedure History: Abdominal aortic aneurysm, s/p aortic stent�2023, bilateral total hip replacement, lumbar laminectomy-2019, cataract surgery, carotid endarterectomy left side�03/18/2024
Family History: non contributory
Social History:
Functional Level Premorbidly: Independent with all activities
Functional Level Currently: Eating�supervision, bed mobility�min assist, grooming, toileting, upper and lower extremity [id number] assist, toilet transfer�min assist,
Tobacco: former smoker, having quit 25-30 years ago
Alcohol: Denies
Drug use: Denies
Lives with: Spouse
24-hour assistance available:
Number of floors:3
# steps to enter: 3
# steps to second floor: FF
Potential First floor set up:
Driving: Yes
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
Allergies:
Allergy/AdvReac Type Severity Reaction Status Date / Time
atorvastatin (From Lipitor) Allergy Myalgia/leg Verified 10/26/24 22:56
cramps
rosuvastatin (From Crestor) Allergy Myalgia/leg Verified 10/26/24 22:56
cramps
Review of Systems:
Constitutional: (x) Normal _
Eye: (x) Normal _
Ear/Nose/Throat: (x) Normal _
Respiratory: (x) Normal _
Cardiovascular: (x) Normal _
Gastrointestinal: (x) Normal _
Genitourinary: (x) Normal _
Musculoskeletal: (x) Normal _
Integumentary: (x) Normal _
Neurologic: (x) Normal _
Psychiatric: (x) Normal _
Endocrine: (x) Normal _
Hematologic/Lymphatic: (x) Normal _
Allergic/Immunologic: (x) Normal _
Medications:
Active Current Visit Medication List
Category Date Time Status
Acetaminophen [Tylenol] Med 10/23/24 07:42 Active
650 mg PO Q4HPRN PRN
Amlodipine [Norvasc] Med 10/25/24 08:00 Active
10 mg PO DAILY
Atorvastatin [Lipitor] Med 10/26/24 22:00 Active
20 mg PO HS
Dexamethasone [Decadron] Med 10/27/24 08:00 Active
4 mg PO DAILY
Doxazosin Mesylate [Cardura] Med 10/27/24 08:00 Active
1 mg PO DAILY
Ezetimibe [Zetia] Med 10/23/24 13:00 Active
10 mg PO DAILY
Flush (0.9% Sodium Chloride) [Flush (Nss)] Med 10/23/24 06:00 Active
See Dose Instructions IV PER PROTOCOL
Heparin Med 10/23/24 20:00 Active
5,000 units SC Q12
Hydrochlorothiazide [Oretic] Med 10/23/24 08:00 Active
25 mg PO DAILY
Losartan [Cozaar] Med 10/23/24 08:00 Active
100 mg PO DAILY
Metoprolol Xl [Toprol Xl] Med 10/24/24 20:00 Hold
50 mg PO BID
Multivitamin [Theragran] Med 10/23/24 08:00 Active
1 tablet PO DAILY
Pyridostigmine [Mestinon] Med 10/25/24 16:00 Active
60 mg PO TID
Ticagrelor [Brilinta] Med 10/25/24 20:00 Active
90 mg PO BID
Vit C/Vit E/Lutein/Min/[place]-3 [Ocuvite Softgel] Med 10/23/24 22:00 Active
1 cap PO HS
Vitals:
Temp Pulse Resp BP Pulse Ox
97.8 F 55 16 122/66 98
10/27/24 11:18 10/27/24 11:18 10/27/24 11:18 10/27/24 11:18 10/27/24 11:18
Height 6 ft 1 in
Actual Weight 92.986 kg
Body Mass Index (BMI) 27.1
Physical Exam:
General Appearance/Observation: Well-developed, well-nourished individual in no apparent distress.
Pain/Comfort Assessment: Denies
Mood/Affect: Appropriate
Integumentary/Operative Site: ecchymosis lower extremities, lateral feet
Pressure Ulcer Evaluation: absent over heels.
Other Type of Wound: absent
Eyes: Conjunctiva/Lids: normal Pupils: pupils equal round and reactive to light and Accommodation
Ears/Nose/Throat: oral mucosa moist, throat clear. Lips/Teeth/Gums: normal
Neck: No muscle spasm or tenderness
Cardiovascular: Heart: regular, no murmur
Pulses: dorsalis pedis 2+ bilaterally
Respiratory: Respiratory Effort/Chest Expansion: normal Auscultation: Clear to auscultation bilaterally
Gastrointestinal: abdomen not tender, no distension, normal abdominal bowel sounds
Genitourinary: No Leo Extremities: Edema: bilateral feet edema Cyanosis: None Trophic changes: None
Neurology Exam:
Orientation: Alert, Oriented to self, Time, Place
Memory: Intact for immediate medical concerns
Repetition: Intact
Comprehension: Intact
Two step command: Intact
Naming: Intact
Cranial Nerves:
CNII: Pupillary light reflex: Intact Visual Field: Intact
CN III, IV, : Extraocular muscles: Intact
CN V: Facial Sensation at Forehead: Intact, Maxilla: Intact, Mandible: Intact
CN VII: Facial movement: Symmetric
CN VIII: Hearing: Normal
CN IX/X: Speech & swallow: Normal, Position of Uvula: Midline
CN XI: Shoulder shrug: Symmetric
CN XII: Tongue protrusion: Midline
Sensory:
Light touch: Intact in bilateral upper and lower extremities
Reflexes:
Biceps: 2+ bilaterally
Brachioradialis: 2+ bilaterally
Triceps: 1+ bilaterally
Patellar: 1+ bilaterally
Achilles: absent bilaterally
Babinski: Down going bilaterally
Clonus: None
Neva: Negative bilaterally
Cerebellar: Dysmetria/Ataxia: None
Musculoskeletal:
Motor: (Manual muscle scale 0-5)
Muscle SA EF WE EE FF FA HF KE DF EHL PF
Right 5 5 5 5 5 5 3+ 3+ 3+ 3+ 4
Left 5 5 5 5 5 5 4+ 4+ 4 4 4
Tone: Normal in all extremities
Range of Motion: Passively within normal limits in all extremities
Lab Results:
Labs
WBC 10.9 10^3/uL (4.8-10.8) H 10/26/24 06:03
RBC 4.51 10^6/uL (4.70-6.10) L 10/26/24 06:03
Hgb 13.4 g/dL (13.0-18.0) 10/26/24 06:03
Hct 38.6 % (39.0-52.0) L 10/26/24 06:03
MCV 85.6 fL (80.0-94.0) 10/26/24 06:03
MCH 29.7 pg (27.0-31.0) 10/26/24 06:03
MCHC 34.7 g/dL (33.0-37.0) 10/26/24 06:03
RDW 13.7 % (11.5-14.5) 10/26/24 06:03
Plt Count 158 10^3/uL (130-400) 10/26/24 06:03
MPV 9.8 fL (7.4-10.4) 10/26/24 06:03
Abs Immat Gran (auto) 0.0 10^3/uL (0-0.05) 10/24/24 05:12
Absolute Neuts (auto) 7.2 10^3/uL (1.4-6.5) H 10/24/24 05:12
Absolute Lymphs (auto) 1.3 10^3/uL (1.2-3.4) 10/24/24 05:12
Absolute Monos (auto) 0.8 10^3/uL (0.1-0.6) H 10/24/24 05:12
Absolute Eos (auto) 0.0 10^3/uL (0-0.7) 10/24/24 05:12
Absolute Basos (auto) 0.0 10^3/uL (0-0.2) 10/24/24 05:12
Immature Gran % 0.3 % (0-0.5) 10/24/24 05:12
Neutrophils % 77.5 % (42.2-75.2) H 10/24/24 05:12
Lymphocytes % 13.9 % (20.5-51.1) L 10/24/24 05:12
Monocytes % 8.1 % (1.7-9.3) 10/24/24 05:12
Eosinophils % 0.0 % (0-6) 10/24/24 05:12
Basophils % 0.2 % (0-2) 10/24/24 05:12
Nucleated RBC % 0 % (-) 10/24/24 05:12
ESR 3 mm/hour (0-20) 10/25/24 12:37
Plt Function - Aspirin 382 ARU 10/23/24 11:12
Plt P2Y12 React Units 6 PRU (180-376) L 10/23/24 11:12
Sodium 138 mmol/L (135-145) 10/26/24 06:03
Potassium 3.7 mmol/L (3.5-5.1) 10/26/24 06:03
Chloride 105 mmol/L (98-107) 10/26/24 06:03
Carbon Dioxide 28 mmol/L (22-30) 10/26/24 06:03
BUN 21 mg/dl (9-20) H 10/26/24 06:03
Creatinine 0.8 mg/dL (0.7-1.3) 10/26/24 06:03
Estimated Creat Clear 80 ml/min 10/26/24 06:03
eGFR > 60.00 10/26/24 06:03
Glucose 104 mg/dl (70-99) H 10/26/24 06:03
Hemoglobin A1c 5.4 % (4.0-5.6) 10/26/24 06:03
Calcium 9.6 mg/dl (8.4-10.2) 10/26/24 06:03
Magnesium 2.2 mg/dl (1.6-2.3) 10/25/24 05:16
Total Bilirubin 0.9 mg/dl (0.2-1.3) 10/22/24 23:58
AST 27 U/L (17-59) 10/22/24 23:58
ALT 20 U/L (0-50) 10/22/24 23:58
Alkaline Phosphatase 68 U/L (38-126) 10/22/24 23:58
Creatine Kinase 23 U/L (55-170) L 10/25/24 12:37
C-Reactive Protein < 5.00 mg/L (0.0-10.00) 10/25/24 12:37
Total Protein 7.4 g/dl (6.3-8.2) 10/22/24 23:58
Albumin 4.4 g/dl (3.5-5.0) 10/22/24 23:58
Triglycerides 95 mg/dl (10-149) 10/23/24 11:12
Total Cholesterol 143 mg/dl (50-199) 10/23/24 11:12
LDL Cholesterol, Calc 79 mg/dl 10/23/24 11:12
VLDL Cholesterol, Calc 19 mg/dl (0-30) 10/23/24 11:12
HDL Cholesterol 45 mg/dl 10/23/24 11:12
Vitamin B12 825 pg/ml (239-931) 10/25/24 12:37
Folate > 20.0 ng/ml (2.76-20) H 10/25/24 12:37
TSH (Reflex) 2.48 uIU/ml (0.47-4.68) 10/25/24 12:37
Diagnostic Results: as per HPI
MRI (10/23):
1. 6.0 mm ACUTE ISCHEMIC INFARCT in the left side of the ANDREI.
2. Severe calcific atherosclerotic plaque and tortuosity of the left intracranial vertebral artery.
3. 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
4. Moderate white matter leukoaraiosis in both cerebral hemispheres.
5. Moderate bilateral temporal lobe volume loss.
ECHO (10/24): mild, MR/TR/LVH, no change from 2021; bubble study negative
CTA A/P (10/25):
1. Aortobiiliac endograft in place. LARGE TYPE II ENDOLEAK from a lumbar artery with PROGRESSIVE EXPANSION of the ABDOMINAL AORTIC [place] ANEURYSM SAC (now 6.5 cm diameter) and expansion of the right common iliac artery [place] aneurysm sac (now
2.9 cm diameter).
2. 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
3. Patent bilateral renal artery stents in place.
4. Severe atherosclerotic plaque in the proximal superior mesenteric artery.
5. Small right upper pole renal infarct or ischemia.
6. Small cysts and hemangiomas in the liver.
7. Mild splenomegaly.
8. Moderate to severe enlargement of the prostate gland.
9. Severe lower lumbar discogenic degenerative disease and facet joint arthrosis.
Carotid US (10/24):
- Calcified plaque is identified in the carotid bulb. Carotid velocity measurements are consistent with a 50-69% internal carotid artery stenosis. Similar to previous.
EKG: Sinus bradycardia:
Assessment
Plan
PM&R PT/OT to increase independence with ADLs, improve balance, coordination, endurance, strength, mobility, community reintegration, decreased burden of care on others and family education.
CVA: Acute [place] CVA. started on ASA/Plavix (P2Y12 testing amenable to Plavix ) 10/25- Plavix changed to Brilinta; Secondary prophylaxis with aspirin and Plavix for 21 days (last dose ) followed by ____ lifelong, statin, and blood pressure
control (SBP less than 180 and diastolic less than 100 to participate with therapy for ischemic stroke). Continue to monitor neurologic status.
right dominant hemiparesis: High risk for falls and sliding out of chair/bed. Safety reinforced.
- Avoid using affected arm to help lift or pull patient as this will cause trauma to the shoulder.
Sinus bradycardia: DDx includes cerebral ischemia, beta yg overtherapeutic. Metoprolol on hold in the setting of myasthenic workup given potential for worsening MG
Myasthenia Gravis :Marked improvement in symptoms s/p Mestinon therapy. Diagnostic value but autoantibody testing is still pending(AchR antibody screen). Continue Mestinon in the outpatient.Per neuro-Outpatient CT Chest to r/o thymoma. Outpatient
EMG
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 There is increased size of the excluded aneurysm sac, now measuring up to 7.3 cm. Vascular
recommendation:To see Dr. Ok Evans at the [facility] (interventional radiology) for embolization of this endoleak.
Dysphagia: speech evaluation, oral care protocol, chlorhexidine rinse after meals and HS, aspiration precautions. Advance diet as tolerated.
Dysarthria: speech evaluation
Aphasia: speech evaluation
HTN: continue medications, monitor closely
HLD: Zetia started this admission. Consider PCSK9 inhibitor outpatient. Moderate dose statin due to history of statin induced myopathy.
Coronary artery disease : Aspirin, statin, s/p stent
Anemia: Likely multifactorial. Hb 12.8, stable from yesterday (though 14.1 on admission). Monitor Hb, particularly in setting of new AC. Continue to monitor.
Psych: Psychology consult. Monitor mood, adjust medications as needed.
Skin: monitor for pressure sores/rashes/lesions.
Pain: acetaminophen as needed.
Bowel: Colace and Senna, PRN bisacodyl.
Bladder/BPH: Time void, PVRs, PRN straight cath. doxazosin for dual therapeutics (HTN/BPH)
GI Prophylaxis: Pantoprazole
DVT Prophylaxis: Heparin SC
Pulmonary: Incentive spirometry
Safety: Continue to reinforce assistance with all transfers.
Code Status: Full code
Dispo (date/plan/equipment needs): Home with family care. Social history reviewed.
Functional and Medical Goals: Modified Independent with ADL�s, ambulation, transfers
Summary recommendations
CVA: Acute [place] CVA. started on ASA/Plavix then on 10/25- changed to Brilinta 90mg bid; For how long? followed by _?___ lifelong, statin, and blood pressure control (SBP less than 180 and diastolic less than 100 to participate with therapy for
ischemic stroke). Continue to monitor neurologic status.
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 There is increased size of the excluded aneurysm sac, now measuring up to 7.3 cm. Vascular
recommendation:To see Dr. Ok Evans at the [facility] (interventional radiology) for embolization of this endoleak. D/W with vascular surgery, Dr. Leo regarding urgency of embolization and if any limitations for rehab- Ok
to proceed with rehab and should be able to complete 3 hours of therapy protocols.
Discharge Destination: Acute inpatient rehabilitation
Thank you for allowing me to care for your patient. Please contact me with any questions or concerns.
[2024-10-27] MEDS: CARDURA 1 MG PO (09:53)
[2024-10-27 11:18] VITALS: BP 122/66
[2024-10-27 12:49] VITALS: BP 110/68; PULSE 60
--- NOTE | 2024-10-27 14:08 | CM ---
Patient seen at bedside with physician and , son in [address] [place] [address]. Patient stated that he was feeling better and CM confirmed bed at [facility] today. Per liaison patient room should be available around 3:30pm. CM sent update to community affairs manager. CM will continue
to follow for discharge planning needs.
Plan; [facility]
[2024-10-27 15:22] VITALS: BP 142/67
--- NOTE | 2024-10-27 15:58 | W.DCSUMMARY ---
Addendum entered and electronically signed by Patti Denise MD 10/27/24 20:19:
Read, reviewed, and agree. See same day progress note for additional details. Time spent coordinating care, DC planning, review of DC plan of care with resident, transition of care, review of records in EMR, med rec, consults, notes, d/w
consultants, nursing, family, and CM = 40 minutes
Original Note:
Discharge Summary
Discharge Data
Date of Admission: 10/24/24
Date of Discharge: 10/27/24
-
Pending Results: Yes
Additional Pending Results:
Qhuf-ytpgomqxchofn-tmtnrdyw antibody
Anti-MuSK antibody
Anti-LPR4 antibody
Hospital Course
Mr. Macedo is a 84 year old male with a past medical history of abdominal aortic aneurysm status post stent, coronary artery disease, mitral valve prolapse, hypertension, hyperlipidemia, peripheral vascular disease, bilateral carotid artery
stenosis status post left carotid artery endarterectomy, lumbar stenosis, and lumbar laminectomy and subsequent peripheral neuropathy who presented to the emergency department at [facility] with both subacute generalized weakness and acute
right upper and lower extremity weakness.
HISTORY OF PRESENT ILLNESS
Patient endorses a history of mobility and balance issues secondary to peripheral neuropathy after getting a lumbar laminectomy in 2019. Patient also noted generalized weakness, particularly affecting the proximal lower extremities for some number
of weeks. More recently, the patient went on a vacation to [place] 2 weeks prior to arrival. While there, the patient endorsed going on long car rides and becoming weaker as the day went on but attributed this to the long car rides. The patient
returned home 1 week prior to arrival. The patient's weakness progressively worsened. Symptoms would reliably get better by the morning. The day prior to arrival, patient began to experience right upper extremity weakness, right lower extremity
weakness, and difficulty with fine motor movements of the right hand. The patient's also endorsed the patient having intermittent episodes of slurred speech. She also noted a more subacute course the patient's voice sounding different. On the
evening of his arrival to the emergency department, the patient was experiencing overt weakness to the point of having to crawl up the stairs to get to bed.
ED COURSE
Patient exhibited hypertension with systolic blood pressure into the 160s to 170s and bradycardia (chronic to metoprolol use). Patient had fluctuating symptomatology with intermittent slurred speech but observable right upper and lower extremity
weakness/trouble writing and eating with fork. Laboratory studies were largely unremarkable outside of a mild leukocytosis. Given acute unilateral symptoms, stroke work up was immediately initiated. CT of the Head did not show any acute intracranial
bleed. 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
the proximal left vertebral artery. The patient was admitted for further srtoke work up.
HOSPITAL COURSE
The patient exhibited NIH Stroke Scores of 0 to 2 during admission. MRI done the next morning revealed an acute left sided pontine stroke. Additional workup was started for stroke risk factor assessment. The patient was already on a statin
(atorvastatin 10 mg daily) however did not tolerate any increased dosages due to statin induced myopathy. Thus the patient was started on ezetimibe for an LDL goal of less than 70. LDL on hospital lab work was 78. Patient was already on dual
antiplatelet therapy with aspirin and Plavix. Testing revealed efficacy of both drugs. Nonetheless, the neurologist changed the patient's Plavix to Brilinta.
Since an acute stroke only accounted for the patient's most recent symptoms, a workup was started to assess for myasthenia gravis. Antibody testing for acetylcholine receptor antibody, anti-MuSK antibody, and anti-LPR4 antibody were sent out and
results are pending. We decided to trial the patient on an acetylcholinesterase inhibitor (Mestinon). After starting this drug, the patient very quickly started to regain motor strength in all 4 extremities. Additionally, the patient would remain
neurologically intact through the evening hours. This likely represented a situation in which the patient was experiencing myasthenic symptoms and a subacute, exacerbated by an acute left pontine stroke suffered in the days prior to arrival.
Since metoprolol can exacerbate myasthenia symptoms, metoprolol was discontinued. The patient was started on doxazosin because previous CT scans showed an enlarged prostate. Additionally patient was queried and he endorsed having slower urine
stream's and dribbling.
Review of old records revealed that the patient had an ultrasound of the arteries of the neck and of the abdominal aorta today prior to his arrival. Ultrasound of the neck was unrevealing, however ultrasound of the abdominal aorta revealed an
endoleak at the position of the stent and progressive growing of the aneurysm. Vascular surgery was consulted, and they felt that the patient can follow-up with an interventional radiologist in [place] on an outpatient basis for repair of
endoleak.
DISCHARGE RECOMMENDATIONS
Patient with an acute ischemic stroke of the left pontine region
Continue aspirin 81 mg daily. Plavix changed to Brilinta 90 mg p.o. twice daily.
Goal of normotension. Metoprolol discontinued due to myasthenia concerns. Continue losartan�hydrochlorothiazide, amlodipine. Started on doxazosin 1 mg p.o. daily for hypertension and benign prostatic hyperplasia symptoms. Primary care provider
to uptitrate to goal.
Goal low-density lipoprotein of 70. Atorvastatin increased to 20 mg p.o. at bedtime. Ezetimibe 10 mg p.o. daily was added to the patient's medication regimen.
PCSK9 inhibitor to be considered by outpatient provider
Patient discharged to acute rehab for continued physical and Occupational Therapy goals.
Patient with likely myasthenia gravis.
Antibody testing pending (see above).
Patient started on Mestinon 60 mg p.o. twice daily
Follow-up with primary care provider for additional recommendations and medication suggestions.
Patient should get a CT of the chest to rule out thymoma.
Beta-yg discontinued due to risk of exacerbation of myasthenic symptoms. See above.
Outpatient EMG to be scheduled.
Patient with endoleak and progressing aneurysm as displayed on CT angiogram of the abdomen pelvis.
Patient to follow-up with Dr. Mike (interventional radiology) for endoleak repair
Patient with urinary symptoms of benign prostatic hyperplasia
Patient started on doxazosin 1 mg p.o. daily for dual therapeutics (hypertension).
Patient was started on steroid taper by primary care physician.
Patient to continue and complete the taper per instructions by primary care provider.
Follow-up with primary care provider in less than 1 week after discharge from acute rehab ([place]).
See daily progress notes for additional information.
Discharge Plan
-
Patient Disposition: Acute Rehab Facility
Discharge Diagnosis/Procedures: Acute Ischemic L Pontine Stroke
Endoleak of Aortic Aneurysm Stent
Myasthenia Gravis
Condition: Fair
Diet: Low Cholesterol
Activity: As tolerated
Referrals:
Ariel Cortes MD [Family Provider, Internal Medicine] - in two weeks
Jamey Evans MD [Non-Admitting Privileges, Radiology]
Referral Note: Embolization of Type II Endoleak
Prescriptions:
New
amlodipine 10 mg Tablet
10 mg PO DAILY Qty: 30 0RF
pyridostigmine bromide 60 mg Tablet
60 mg PO TID Qty: 30 0RF
ezetimibe 10 mg Tablet
10 mg PO DAILY Qty: 30 0RF
ticagrelor [Brilinta] 90 mg Tablet
90 mg PO BID Qty: 30 0RF
atorvastatin 10 mg Tablet
10 mg PO HS Qty: 30 0RF
doxazosin 1 mg Tablet
1 mg PO DAILY Qty: 30 0RF
Continued
nitroglycerin 0.4 MG tablet, sublingual
0.4 mg sublingual [id number] PRN (Reason: chest pain) Qty: 25 10RF
losartan-hydrochlorothiazide 100-25 mg Tablet
1 tab PO DAILY
Centrum Silver Men [phone] mcg Tablet
1 tab PO DAILY
aspirin 81 mg Tablet,Chewable
81 mg PO DAILY Qty: 90 0RF
tramadol 50 mg Tablet
50 mg PO DAILYPRN PRN (Reason: severe pain)
PreserVision AREDS-2 250-90-40-1 mg Capsule
1 tab PO BID
acetaminophen [Tylenol] 325 mg Tablet
650 mg PO Q6HPRN PRN (Reason: mild pain)
coenzyme Q10 [CoQ-10] 100 mg Capsule
200 mg PO DAILY
dexamethasone
12 mg PO ZEE
Rx Instructions:
Decreasing dose, 10/23/24 12mg , 10/24/24 8mg, 10/25/24 4mg
Held
metoprolol succinate 100 mg Tablet Extended Release 24 Hr
100 mg PO BID
Hold Instructions: Hold Until Seen by Primary Care Physician
Discontinued
clopidogrel 75 mg Tablet
75 mg PO DAILY Qty: 90 0RF
amlodipine 5 mg Tablet
5 mg PO DAILY
atorvastatin 10 mg Tablet
10 mg PO DAILY
Discharge Orders:
Discharge Patient (As Directed); Ordered 10/26/24
Ordered By: Domingo Vega
Discharge Date and Time
Discharge Date/Time: 10/27/24 17:26
Print Language: WELSH
[2024-10-28 13:53] LABS: Vitamin B1, Whole Blood 205 nmol/L (70-180)
== END 2024-10-27 17:26 | DRG 65 ==
LOC: 2 NORTH 11:53
PROVIDERS: Internal Medicine; Psychiatry & Neurology Neurology; ADMITTING PHYSICIAN Internal Medicine; ATTENDING PHYSICIAN Internal Medicine; CONSULT PHYSICIAN Psychiatry & Neurology Neurology; CONSULT PHYSICIAN Surgery Vascular Surgery; EMERGENCY PHYSICIAN Student in an Organized Health Care Education/Training Program; FAMILY PHYSICIAN Internal Medicine; OTHER PHYSICIAN Internal Medicine Cardiovascular Disease; OTHER PHYSICIAN Physical Medicine & Rehabilitation
DX: I63.29 Cerebral infarction due to unspecified occlusion or stenosis of other precerebral arteries (principal); G72.0 Drug-induced myopathy; G81.91 Hemiplegia, unspecified affecting right dominant side; G70.00 Myasthenia gravis without (acute) exacerbation; Z86.79 Personal history of other diseases of the circulatory system; I25.10 Atherosclerotic heart disease of native coronary artery without angina pectoris; R53.1 Weakness; E78.00 Pure hypercholesterolemia, unspecified; E78.49 Other hyperlipidemia; I73.9 Peripheral vascular disease, unspecified; H35.30 Unspecified macular degeneration; I10 Essential (primary) hypertension; Z96.643 Presence of artificial hip joint, bilateral; Z87.891 Personal history of nicotine dependence; M48.061 Spinal stenosis, lumbar region without neurogenic claudication; Z79.82 Long term (current) use of aspirin; Z79.899 Other long term (current) drug therapy; Z79.02 Long term (current) use of antithrombotics/antiplatelets; R29.700 NIHSS score 0; D72.829 Elevated white blood cell count, unspecified; G62.9 Polyneuropathy, unspecified; I34.1 Nonrheumatic mitral (valve) prolapse; D64.9 Anemia, unspecified; T46.6X5A Adverse effect of antihyperlipidemic and antiarteriosclerotic drugs, initial encounter; N40.0 Benign prostatic hyperplasia without lower urinary tract symptoms
CPT/HCPCS: 0042T; 70450; 70496; 70498; 70551; 74174; 76770; 80048; 80053; 80061; 82550; 82607; 82746; 83036; 83735; 84425; 84443; 85025; 85027; 85576; 85652; 86041; 86140; 92526; 92610; 93005; 93306; 93880; 97112; 97116; 97163; 97167; 97530; 97535; 99291; Q9967

== ENCOUNTER 2024-10-28 17:44 | Observation (INO) | payer MEDICARE, OTHER, SELFPAY ==
[2024-10-28] VITALS (17 sets, daily range): BP systolic 109–173; BP diastolic 54–114; BMI 27.1; BMI 26.6
[2024-10-28 14:21] LABS: Glucose - Point of Care 266 mg/dl (70-99)
[2024-10-28 14:46] LABS: % Basophils 0.2 % (0-2); % Eosinophils 0.1 % (0-6); % Immature Granulocytes 0.7 % (0-0.5); % Lymphocytes 6.1 % (20.5-51.1); % Monocytes 3.5 % (1.7-9.3); % Neutrophils 89.4 % (42.2-75.2); Absolute Immature Granulocytes 0.1 10^3/uL (0-0.05); Absolute Lymphocytes 0.7 10^3/uL (1.2-3.4); Absolute Monocytes 0.4 10^3/uL (0.1-0.6); Absolute Neutrophils 10.9 10^3/uL (1.4-6.5); Hematocrit 41.1 % (39.0-52.0); Mean Corp Hgb Conc. 34.1 g/dL (33.0-37.0); Mean Corpuscular Hgb 29.5 pg (27.0-31.0); Mean Corpuscular Volume 86.7 fL (80.0-94.0); Mean Platelet Volume 9.6 fL (7.4-10.4); Nucleated Red Blood Cells % 0 % (-); Platelet Count 178 10^3/uL (130-400); Red Blood Cell Count 4.74 10^6/uL (4.70-6.10); Red Cell Dist. Width 14.2 % (11.5-14.5); White Blood Cell Count 12.2 10^3/uL (4.8-10.8)
[2024-10-28 14:55] LABS: INR 1.09; PT 14.5 Sec (11.4-14.6)
[2024-10-28 15:18] LABS: ALT (SGPT) 39 U/L (0-50); AST (SGOT) 25 U/L (17-59); Albumin 3.8 g/dl (3.5-5.0); Alkaline Phosphatase 68 U/L (38-126); Blood Urea Nitrogen 29 mg/dl (9-20); Carbon Dioxide 28 mmol/L (22-30); Chloride 101 mmol/L (98-107); Estimated Creatinine Clearance 64 ml/min; Glucose 237 mg/dl (70-99); Potassium 3.8 mmol/L (3.5-5.1); Sodium 134 mmol/L (135-145); Total Bilirubin 1.3 mg/dl (0.2-1.3); eGFR > 60.00
--- NOTE | 2024-10-28 16:28 | ED.CVA ---
History of Present Illness
General
Chief Complaint: CVA/TIA Symptoms
Source: patient
Time Seen by Provider: 10/28/24 15:18
Onset of Stroke Symptoms
Onset of symptoms known: Yes
Date of onset of symptoms: 10/28/24
History of Present Illness
History of Present Illness:
Note:
CHIEF COMPLAINT(S)
Right-sided weakness
HISTORY OF PRESENT ILLNESS
The patient is an 84-year-old male with a history of lumbar spinal stenosis and prior spinal surgery, presenting with progressive right-sided weakness. Symptoms began a few weeks ago while the patient was on vacation. Initially, he required a cane,
progressing to a walker due to worsening balance and weakness. One week prior, he presented to the emergency department, suspected of having a pontine stroke, and was subsequently admitted. Following discharge, he was transferred to [facility].
Additional history obtained from the patient�s son, spouse, and granddaughter reveals that the right-sided weakness becomes more pronounced as the day progresses, though it improves in the morning. There is also a slight right facial droop. He
denies any recent headaches, visual changes, or significant new speech difficulties. Clinical consideration for myasthenia gravis was noted due to the diurnal fluctuation of symptoms, although it is atypical for this condition to affect only one
side. The symptoms were not present before the incident in [place].
PAST MEDICAL HISTORY
- Lumbar spinal stenosis with past spinal surgery
PHYSICAL EXAM
- Nursing notes reviewed and vital signs reviewed.
- Neurological Exam: No pronator drift, 4/5 strength in the right upper extremity, 3/5 strength in the right lower extremity, normal [id number] coordination bilaterally, slight right facial droop, cranial nerves intact otherwise.
- Cardiovascular: Heart regular without murmur.
- Pulmonary: Lungs clear.
- Extremities: No edema, warm, and well perfused.
DIFFERENTIAL DIAGNOSIS
The Differential Diagnosis includes, in no particular order and is not limited to:
- Cerebrovascular accident (stroke)
- Myasthenia gravis
- Multiple sclerosis
- Transient ischemic attack
- Peripheral neuropathy
- Brain tumor
- Parkinsons disease
- Lambert-Eaton myasthenic syndrome
- Cervical myelopathy
- Amyotrophic lateral sclerosis (ALS)
CARE-UPDATE
10/28/24 - 16:30
Neurology recommends obtaining a CTA and CTP of the head.
Disposition:
ASSESSMENT
Patient presents with right-sided weakness, previously diagnosed with a pontine stroke, with considerations for myasthenia gravis. Currently, the weakness has improved. I reviewed the labs, which include a normal CBC and normal chemistry. A CT scan
shows no acute findings, specifically no intracranial hemorrhage.
ADDITIONAL TESTING AND IMAGING CONSIDERED
Neurology recommends obtaining a CTA and CTP of the head.
MEDICAL DECISION MAKING
1. Number & Complexity of Problems:
- Chronic conditions affecting care: Lumbar spinal stenosis with past spinal surgery.
- Differential diagnoses include cerebrovascular accident (stroke), myasthenia gravis, and others.
2. Data Reviewed:
- Category 2: Reviewed old records, including recent discharge summary.
3. Risk: Consideration of admission/observation was made due to complexity/risk. Outpatient management is not yet confirmed as admission was recommended.
PATHOLOGIES TO CONSIDER
- Stroke (focal neurologic deficits + sudden onset)
- Myasthenia gravis (neuromuscular symptoms with diurnal variation)
Past History
Past History
ED Past Medical History: CAD, HTN, Hypercholesterolemia, Other (AAA with repair) and Other (Neuropathy of both legs, bilateral carotid artery stenosis)
ED Past Surgical History: Cardiac (Aortic stent 11/2022), Orthopedic (Lumbar laminectomy 2019, total hip replacement) and Other (AAA with repair and bilateral renal stenting 2022, left carotid endarterectomy 2023, cataract extraction)
Social History
Tobacco: Non-smoker
Alcohol: Occasional
Personal:
Living: with family
Family History
Family History: Other (Reviewed and noncontributory)
Phy Exam
Physical Exam
Physical Exam:
.
Course
Orders/Labs/Results
Orders:
Orders
10/28/24 14:[address] [CT Head W/o Iv Contrast] Urgent
Comment:
Reason For Exam: right sided weakness recent pontine CVA
10/28/24 14:28
Complete Blood Count/With Diff Urgent
Comprehensive Metabolic Panel Urgent
Prothrombin Time Urgent
10/28/24 Dinner
Cholesterol Lowering
At Your Request: Full Participation
10/28/24 16:05
CT Brain Perfusion Urgent
Comment:
Reason For Exam: RUE weakness
CT Head & Neck Angio W/wo IV Urgent
Comment:
Reason For Exam: RUE weakness
10/28/24 16:55
Admit/Transfer Patient As Directed
Co-Sign Provider:
Level of Care: Inpatient admission
Assign to:: Telemetry
Physician / Group: [email or web address]
Diagnosis: R sided weakness TIA/ CVA
Reason for Telemetry: CVA/TIA
Date to Stop Telemetry: 10/31/24
Time to Stop Telemetry: 11:00
Reason for Hospitalization: R sided weakness - eval for TIA/ CVA
Expected length of stay greater than two midnights?: Yes
ELOS- Estimated Length of Stay in days: 3
I certify the patient meets the requirements for IP care: Yes
Electrocardiogram (*1) Urgent
Reason for Study: TIA/Stroke
EKG- Treatment ONCE
10/28/24 16:58
Code Status As Directed
Resuscitation Status: Full Code
10/28/24 18:50
Acetaminophen [Tylenol/Feverall] 650 mg RECTAL Q4HPRN PRN
Acetaminophen [Tylenol] 650 mg PO Q4HPRN PRN
Acetaminophen [Tylenol] 650 mg PO Q6HPRN PRN mild pain
Nitroglycerin Sublingual [Nitrostat (Sublingual)] 0.4 mg SL [id number] PRN chest pain
Tramadol HCl [Ultram] 50 mg PO DAILYPRN PRN severe pain
10/28/24 18:50
Case Management Consult ONCE
Case Management Consult: Discharge Planning
Comment: stroke/tia
DIETARY IP CONSULT Routine
Reason for Consult: stroke/TIA
NEUROLOGY CONSULT Urgent
Consulting Provider: Haven Ruiz
Was physician already notified: Yes
Reason for consult: R sided weakness TIA/ CVA
Signal Fitter Urgent
Activity As Directed
Activity Level: With Assistance
NIH Stroke Scale As Directed
Directions: Per protocol
Comment: every shift and with any change in condition or mental status
Neurological Checks As Directed
Frequency: q4h
Additional Instructions:: q4h x 24h upon admission to the floor, then qshift & with any change in condition
and mental status
Patient Education As Directed
Type: Stroke education packet
Comment: provide to patient and family
Pneumatic Compression Sleeves As Directed
Type: Knee high
Vital Signs As Directed
Frequency: Per unit guidelines
Ot Eval And Treat Routine
Pt Eval And Treat Routine
Activity Level: With Assistance
Speech Therapy Eval & Treat Routine
DX Deep Vein Thrombosis Video Routine
10/28/24 20:00
Amlodipine [Norvasc] 10 mg PO DAILY@1999
Heparin 5,000 units SC Q12
Ticagrelor [Brilinta] 90 mg PO BID
10/28/24 22:00
Pyridostigmine [Mestinon] 60 mg PO TID
10/29/24 06:00
Cardiovascular Evaluation IN AM
10/29/24 08:00
Aspirin Chewable [Low Strength Aspirin] 81 mg PO DAILY
Dexamethasone [Decadron] 4 mg PO DAILY
Doxazosin Mesylate [Cardura] 1 mg PO DAILY
Ezetimibe [Zetia] 10 mg PO DAILY
Hydrochlorothiazide [Oretic] 25 mg PO DAILY
Losartan [Cozaar] 100 mg PO DAILY
10/31/24 11:00
DC Protocol for Telemetry ONCE
Abnormal Lab Results
10/28/24 10/28/24
14:19 14:28
WBC 12.2 H 10^3/uL
(4.8-10.8)
Abs Immat Gran (auto) 0.1 H 10^3/uL
(0-0.05)
Absolute Neuts (auto) 10.9 H 10^3/uL
(1.4-6.5)
Absolute Lymphs (auto) 0.7 L 10^3/uL
(1.2-3.4)
Immature Gran % 0.7 H %
(0-0.5)
Neutrophils % 89.4 H %
(42.2-75.2)
Lymphocytes % 6.1 L %
(20.5-51.1)
Sodium 134 L mmol/L
(135-145)
BUN 29 H mg/dl
(9-20)
Glucose 237 H mg/dl
(70-99)
Total Protein 6.0 L g/dl
(6.3-8.2)
POC Glucose 266 H mg/dl
(70-99)
10/28/24 14:28
10/28/24 14:28
Vital Signs
Initial and Last Documented VS:
Initial Vital Signs
Temp Pulse Resp BP Pulse Ox
97.9 F 75 18 111/60 97
10/28/24 14:16 10/28/24 14:16 10/28/24 14:16 10/28/24 14:16 10/28/24 14:16
Last Documented Vital Signs
Temp Pulse Resp BP Pulse Ox
97.5 F 63 18 140/66 99
10/28/24 19:00 10/28/24 20:24 10/28/24 19:00 10/28/24 20:24 10/28/24 19:00
*Pulse Oximetry
SaO2: 95
Oxygen Mode of Delivery: Room air
Patient hypoxic: no
*EKG
Interpreted by ED Provider?: Yes
Interpretation: abnormal
Rate: normal
Rhythm: sinus
[place]: left axis deviation
QRS Pattern: other (LAFB)
Ischemia: no ischemia
*Forensic Psychiatrist Interpretation
Rate: normal
Interpretation: normal
Rhythm: sinus
*Critical Care Note
Total Time (30-74mins, 75-104mins- exclusive of procedures): 30 minutes
Data Reviewed
Review of Other/Old Records Reveals: Labs, Records and Radiology Studies (Previous CT scan reviewed from October 2024)
Source: patient and family
Prescriptions/Medications Considered But Not Given:
Consider tPA but improving symptoms and symptoms have been off and on over the last few days
ED Attending Note
-
Portions of this chart may have been created with voice recognition software.� Occasional wrong word or��sound alike� substitutions may have occurred due to the inherent limitations of voice recognition software.
Discharge Plan
Departure
Patient Disposition: Admit
Date of Disposition: 10/28/24
Time of Disposition: 16:29
Admit to: Telemetry
Presentation/result/management discussed w/ accepting MD/DO: Hospitalist
Discharge Problem:
Acute right-sided muscle weakness
Interventions
Interventions:
*Risk Screen - Suicide Last Done: 10/28/24 14:20
*General Assessment Last Done: 10/28/24 14:20
*Neglect/Abuse Screening Last Done: 10/28/24 14:20
*ED- Fall Risk Assessment Last Done: 10/28/24 14:20
*ED COVID-19 Vaccine History Last Done: 10/28/24 14:20
*Nursing Disposition Last Done: 10/28/24 18:40
ED- Pulmonary Assessment Last Done: 10/28/24 14:20
ED- Neurological Assessment Last Done: 10/28/24 14:20
ED- Cardiac Assessment Last Done: 10/28/24 14:20
ED Swallowing Screen Last Done: 10/28/24 14:20
Discharge Date and Time
Discharge Date/Time: 10/28/24 18:40
--- NOTE | 2024-10-28 16:51 | HPS.HSE ---
Addendum entered and electronically signed by Karan Webb MD 10/28/24 18:15:
IP TLM in place of OBS TLM due to increased cytotoxic edema of acute ischemic infarct of Lt ANDREI since 10/23/2024.
Original Note:
Family Physician
-
Family Physician: Nabil Cortes
Chief Complaint
-
R sided weakness from acute rehab
History of Present Illness
HPI
84M Right Hand dominant man, PMH of (Abdominal aortic aneurysm s/p aortic stent last year, endoleak�6.3 cm, CAD, mitral valve prolapse, hypertension, hyperlipidemia, bilateral carotid artery stenosis, lumbar stenosis, macular degeneration,
peripheral neuropathy, peripheral vascular disease, total hip replacement, cataracts) presented to [facility] on 10/22/2024 with right-sided weakness Dxed Acute Pontine CVA --found on MRI 10/23/24 DC;d yesterday seen at ER:
- he is back with waxing and waning intermittent R sided weakness - seen by Neuro.
- Pending imaging
- Neuro suggest admission
Medical History
Past Medical History
Past Medical History: Reports Other (abdominal aortic aneurysm status post aortic stent last year, coronary artery disease, mitral valve prolapse, hypertension, hyperlipidemia, bilateral carotid artery stenosis, lumbar stenosis, macular
degeneration, peripheral neuropathy, peripheral vascular disease, total hip replacement, cataracts,)
Past Surgical History: Reports Other (Abdominal aortic aneurysm stent, bilateral hip replacement, laminectomy, cataracts, carotid endarterectomy left side March 18, 2024)
Social History
Tobacco: Non-smoker
Alcohol: None
Drug: None
Family History
Family History: Other
Allergies / Home Medications
Allergies reflects when Allergies were last updated in [facility].
Home Medications with original date entered in [facility]
Allergy/Medication List:
Allergies
Allergy/AdvReac Type Severity Reaction Status Date / Time
rosuvastatin (From Crestor) Allergy Myalgia Verified 03/18/24 08:31
atorvastatin (From Lipitor) AdvReac Myalgia Verified 03/18/24 08:30
Home Medications
nitroglycerin 0.4 mg sublingual tablet 0.4 mg sublingual [id number] PRN chest pain #25 tabs 03/11/19
losartan 100 mg-hydrochlorothiazide 25 mg tablet 1 tab PO DAILY Blood Pressure 11/24/22
dzsxgvpt-or-sclod 300 mcg-K 60 mcg-lycop 600 mcg-lutein 300 mcg tablet (Centrum Silver Men) 1 tab PO DAILY Supplement 11/24/22
aspirin 81 mg chewable tablet 81 mg PO DAILY #90 tabs 12/03/22
clopidogrel 75 mg tablet 75 mg PO DAILY #90 tabs 12/03/22
tramadol 50 mg tablet 50 mg PO DAILYPRN PRN severe pain 12/07/23
vit C 250 mg-vit E 90 mg-zinc 40 mg-copper 1 lz-eoodft-rllhhh capsule (PreserVision AREDS-2) 1 tab PO BID Supplement 12/07/23
acetaminophen 325 mg tablet (Tylenol) 650 mg PO Q6HPRN PRN mild pain 12/11/23
amlodipine 5 mg tablet 5 mg PO DAILY Blood Pressure 12/11/23
coenzyme Q10 100 mg capsule (CoQ-10) 200 mg PO DAILY Supplement 12/11/23
metoprolol succinate 100 mg tablet,extended release 24 hr 100 mg PO BID Blood Pressure 12/11/23
atorvastatin 10 mg tablet 10 mg PO DAILY High Cholesterol 03/18/24
dexamethasone 10/23/24
Review of Systems
-
A 12 point ROS was completed and negative except as noted: Yes
Physical Exam
Vital Signs
Vital Signs
Temp Pulse Resp BP Pulse Ox
97.9 F 73 23 143/74 95
10/28/24 14:16 10/28/24 16:45 10/28/24 16:45 10/28/24 16:30 10/28/24 16:29
Physical Exam
General: Well Developed, Well Nourished, No Apparent Distress, Comfortable and Conversant
HEENT: NormoCephalic, Anicteric and Moist mucous membranes
Respiratory: Clear
Cardiac: S1/S2 and Regular Rhythm
GI: Soft, Non Tender and Non Distended
Musculoskeletal: No Clubbing, No Cyanosis and No Edema
Skin: Warm and Dry
Neuro: AO x 3, Cranial Nerves Intact and Other (right UE and hand slightly decreased in muscle strength 4+/5 compared to left UE and LE at 5/5)
Psych: Calm
Laboratory Results
-
10/28/24 14:28
10/28/24 14:
Laboratory Results
PT 14.5 Sec (11.4-14.6) 10/28/24 14:28
INR 1.09 10/28/24 14:28
Total Bilirubin 1.3 mg/dl (0.2-1.3) 10/28/24 14:28
AST 25 U/L (17-59) 10/28/24 14:28
ALT 39 U/L (0-50) 10/28/24 14:28
Alkaline Phosphatase 68 U/L (38-126) 10/28/24 14:28
Data Reviewed
-
CT Scan: Report Reviewed by me
Medical Tests (Nuc Med, Echo, EKG etc): Report Reviewed by me
Lab Data: Labs Reviewed by me
Old Records: Reviewed
Impression/Plan
-
Vital Signs
Temp Pulse Resp BP Pulse Ox
97.9 F 73 23 143/74 95
10/28/24 14:16 10/28/24 16:45 10/28/24 16:45 10/28/24 16:30 10/28/24 16:29
Abnormal Lab Results
10/28/24 10/28/24
14:19 14:28
WBC 12.2 H
Abs Immat Gran (auto) 0.1 H
Absolute Neuts (auto) 10.9 H
Absolute Lymphs (auto) 0.7 L
Immature Gran % 0.7 H
Neutrophils % 89.4 H
Lymphocytes % 6.1 L
Sodium 134 L
BUN 29 H
Glucose 237 H
Total Protein 6.0 L
POC Glucose 266 H
HCT
There are moderate changes of cortical atrophy and chronic ischemic disease
10/23/24 Brain MRI
1. 6.0 mm ACUTE ISCHEMIC INFARCT in the left side of the ANDREI.
2. Severe calcific atherosclerotic plaque and tortuosity of the left intracranial vertebral artery.
3. 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
4. Moderate white matter leukoaraiosis in both cerebral hemispheres.
5. Moderate bilateral temporal lobe volume loss.
CT Head & Neck Angio W/wo IV
1. Severe calcific atherosclerotic plaque in the proximal right ICA causing greater than 70% diameter stenosis.
2. Previous left carotid endarterectomy.
3. 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
4. 50-70% diameter stenosis in the proximal left vertebral artery.
5. Severe discogenic degenerative disease at C5/C6 and C6/C7 with disc-osteophyte complexes at both levels causing moderate spinal cord compression, moderate central canal stenosis, and severe bilateral neural foraminal narrowing.
HEAD CTA:
1. 8.7 mm ACUTE ISCHEMIC INFARCT in the LEFT ANDREI containing cytotoxic edema which has increased since 10/23/2024.
2. Severe calcific atherosclerotic plaque in both intracranial internal carotid arteries causing less than 50% diameter stenosis.
3. 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
4. Severe calcific atherosclerotic plaque in the left vertebral artery causing 50% diameter stenosis.
5. 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
6. Moderate white matter leukoaraiosis in both cerebral hemispheres.
7. Moderate bilateral temporal lobe volume loss.
Last hospitalist admission:10/24/24 - 10/27/24 DX: Acute Pontine CVA --found on MRI 10/23/24, concern for myasthenia gravis
ASSESSMENT & PLAN
Noted
Acute Lt Pontine CVA found on MRI 10/23/24 was containing cytotoxic edema which has increased since 10/23/2024.
Waxing and waning intermittent R sided weakness may be due to cytotoxic edema
TTE without significant issues
CUS: 50-69% right stenosis and left < 50% stenosis
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
- on ASA + Brilinta
- DC on mod dose Zetia + Atorvastatin 10mg HS
- passed speech eval on last admission - low Cho diet
- Per ER attd - Neuro suggest admission and H & N CTA - pending report
HX weakness of B/L Olaf which progresses, at the end of the day he is 'crawling' on the floor and he is perfectly fine in AM
HX not consistent with acute stroke--raises concern for myasthenia
- pending anticholinesterase receptor antibodies
- Cont Mestinon
- OP EMG/NCS
HX Sinus Bradycardia
DDx includes cerebral ischemia, beta yg dose likely too high
- Held BB upon DC as of 10/27
Anemia--possible due to endoleak blood loss
- Continue to monitor Hgb
HX AAA repair identified endoleak-
CT angio with large type II endoleak with progressive expansion of [place] abdominal aortic [place] aneurysm sac
- OP IR eval at [place] at d/c
HX Hyperglycemia likely from 12 mg Decadron taper as opposed to 12 mg THURSDAY as indicated on home med list
-HGB A1C 5.4
DVT Px:
Code: full
OBS TLM
--- NOTE | 2024-10-28 19:42 | PTCARENOTE ---
Addendum entered by Marcelle Hickey RN 10/28/24 19:48:
NIH-4
Original Note:
pt from ED via stretcher. pt is AAO*3, Vss, room air. NIH-1 on the floor on arrival. pt weak on R leg. pt oriented to the room. call bee within the reach. plan of care ongoing.
[2024-10-28] MEDS: HEPARIN 5000 UNITS SC (20:23)
[2024-10-28] MEDS: BRILINTA 90 MG PO (20:23)
[2024-10-28] MEDS: NORVASC 10 MG PO (20:24)
[2024-10-28] MEDS: MESTINON 60 MG PO (21:44)
[2024-10-29 03:40] VITALS: BP 138/77
[2024-10-29 07:51] VITALS: BP 146/86
[2024-10-29] MEDS: DECADRON 4 MG PO (08:34)
[2024-10-29] MEDS: HEPARIN 5000 UNITS SC (08:35)
[2024-10-29] MEDS: CARDURA 1 MG PO (08:35)
[2024-10-29] MEDS: BRILINTA 90 MG PO (08:35)
[2024-10-29] MEDS: COZAAR 100 MG PO (08:35)
[2024-10-29] MEDS: ORETIC 25 MG PO (08:35)
[2024-10-29] MEDS: LOW STRENGTH ASPIRIN 81 MG PO (08:35)
[2024-10-29] MEDS: MESTINON 60 MG PO ×2 (08:35→15:03)
[2024-10-29] MEDS: ZETIA 10 MG PO (08:35)
[2024-10-29 09:07] LABS: HDL Cholesterol 45 mg/dl; LDL Cholesterol, Calculated 42 mg/dl; Total Cholesterol 108 mg/dl (50-199); Triglyceride 108 mg/dl (10-149); Very Low Density Lipoprotein 21 mg/dl (0-30)
[2024-10-29 11:19] VITALS: BP 148/72
--- NOTE | 2024-10-29 12:03 | W.PN.HOSP.TC ---
Today's Communication/Plan
-
await neuro input
back to [facility] when cleared to do so
Assessment / Plan
Assessment / Plan
pt is an 84 year old male
Acute Pontine CVA --found on MRI 10/23/24--went to [facility] on asa/Brilinta--LDL 79 on mod dose statin with zetiz--echo last admission without significant issues--had recurrence of right sided symptoms--Head and Neck CTA done in ED showed 8.7mm enlarging
gucci stroke with cytotoxic edema but repeat MRI 10/29/24 shows persistent 6.5 mm focus of acute-subacute infarct in the central/right paracentral gucci. No significant progression. No new infarct. No hemorrhage. No other significant change.
myasthenia--new diagnosis last admission--anticholinesterase receptor antibodies=0, rest of lab workup, still pending--apprec neuro input, cont Mestinon--EMG/NCS as outpatient
Sinus Bradycardia-- DDx includes cerebral ischemia, beta yg dose likely too high--[facility] to [facility]ia concerns[facility]
anemia--possible due to endoleak blood loss-- drop in Hgb with rebound -- Continue to monitor Hgb
Abdominal aortic aneurysm repair with identified endoleak--apprec vascular surgery--CT angio with large type II endoleak with progressive expansion of [place] abdominal aortic [place] aneurysm sac--outpt IR rupinder at [place] at d/c
hyperglycemia--modest increase--likely from 12 mg decadron taper as opposed to 12 mg THURSDAY as indicated on home med list--HGB A1C 5.4
DVT proph
code status--full code
Anticipated Discharge: 24 - 48 hours
Subjective/Interval History
-
Date of Service: October 29, 2024
pt feeling fine again this AM--no right sided flare of symptoms
Objective Data
-
Vital Signs:
max temp for 24 hours
10/28/24
23:43
Temp 97.9 F
Vital Signs
Temp Pulse Resp BP Pulse Ox
98.2 F 62 16 148/72 99
10/29/24 11:19 10/29/24 11:19 10/29/24 11:19 10/29/24 11:19 10/29/24 11:19
I&O
10/28/24 10/29/24 10/30/24
06:59 06:59 06:59
Intake Total 720 / 720 320 / 320
Output Total 250 / 250 325 / 325
Balance 470 / 470 -5 / -5
Review of Systems
-
All other systems: Reviewed and negative
Physical Exam
-
General: Well Developed, Well Nourished and No Apparent Distress
HEENT: Normocephalic and Atraumatic
Respiratory: Clear to Auscultation; Negative Wheezes or Rhonchi
Cardiac: Regular Rhythm and S1/S2; Negative Murmur
GI: Soft, Nontender, Nondistended and Normal Bowel Sounds
Musculoskeletal: No Clubbing, No Cyanosis and No Edema
Neuro: Awake
[2024-10-29 12:46] VITALS: BP 124/73
--- NOTE | 2024-10-29 14:04 | W.DCSUMMARY ---
Discharge Summary
Discharge Data
Date of Admission: 10/28/24
Date of Discharge: 10/29/24
-
Pending Results: Yes
Additional Pending Results:
Anti-MuSK antibody
Anti-LPR4 antibody
Hospital Course
Primary care physician : Nabil Cortes
Principal Discharge diagnosis : Fluctuating neurologic symptoms from acute andrei infarct
Chronic Discharge diagnosis : Presumed myasthenia, sinus bradycardia, anemia likely due to blood loss from endoleak, abdominal aortic aneurysm repair, hyperglycemia
Hospital Course : Patient was an 84-year-old male who was recently in the hospital and discharged to [facility] for an acute pontine stroke. Patient states that he had waxing and waning intermittent right sided weakness while he was at rehab and
eventually was recommended to come to the emergency room for evaluation. He was seen by neurology who suggested admission. Patient was brought into the hospital.
Problem #1: Fluctuating neurologic symptoms from acute andrei infarct. Patient was seen in consultation by neurology who recommended inpatient evaluation. CAT scan of the head done in the emergency department showed moderate changes of cortical
atrophy and chronic ischemic disease. Head and neck CTA showed 8.7 mm acute ischemic infarct in the left andrei with cytotoxic edema which is increased since 10/23/2024. Brain MRI was again performed which showed a persistent 6.5 mm focus of acute to
subacute infarct in the central right paracentral andrei. There was no significant progression. No new infarct. No hemorrhage. And no other significant change. This reading is unchanged from his previous MRI last admission. It appears that
neurology is thinking that fluctuating blood pressures may have caused his symptoms. Blood pressure control will be continued. Aspirin and Brilinta will be continued. Lipitor and Zetia will be continued. Physical and Occupational Therapy saw him
and are recommending back to acute rehab. [facility] can take the patient back today. Patient is medically stable to return to [facility].
Problem #2: All other medical issues. These include Presumed myasthenia, sinus bradycardia, anemia likely due to blood loss from endoleak, abdominal aortic aneurysm repair, hyperglycemia. These medical issues are stable during his hospitalization.
Medications were continued as able. In regards to the presumed myasthenia. Acetylcholinesterase receptor antibodies were negative. He was continued on his Mestinon. Anti-MuSK antibodies and anti-L PR4 antibody still pending.
Important imaging findings :
BRAIN MRI 10/29/24: Persistent 6.5 mm focus of acute-subacute infarct in the central/right paracentral andrei. No significant progression. No new infarct. No hemorrhage. No other significant change.
NECK CTA:
1. Severe calcific atherosclerotic plaque in the proximal right ICA causing greater than 70% diameter stenosis.
2. Previous left carotid endarterectomy.
3. 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
4. 50-70% diameter stenosis in the proximal left vertebral artery.
5. Severe discogenic degenerative disease at C5/C6 and C6/C7 with disc-osteophyte complexes at both levels causing moderate spinal cord compression, moderate central canal stenosis, and severe bilateral neural foraminal narrowing.
HEAD CTA:
1. 8.7 mm ACUTE ISCHEMIC INFARCT in the LEFT ANDREI containing cytotoxic edema which has increased since 10/23/2024.
2. Severe calcific atherosclerotic plaque in both intracranial internal carotid arteries causing less than 50% diameter stenosis.
3. 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
4. Severe calcific atherosclerotic plaque in the left vertebral artery causing 50% diameter stenosis.
5. 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
6. Moderate white matter leukoaraiosis in both cerebral hemispheres.
7. Moderate bilateral temporal lobe volume loss.
HEAD CT: There are moderate changes of cortical atrophy and chronic ischemic disease
Discharge Plan
-
Patient Disposition: Acute Rehab Facility
Discharge Diagnosis/Procedures: Acute pontine stroke with fluctuating neurosymptoms, presumed myasthenia, sinus bradycardia, anemia possibly due to blood loss from endoleak, abdominal aortic aneurysm repair, hyperglycemia
Condition: Good
Diet: Low Cholesterol
Activity: As tolerated
Driving Restrictions: No driving
Bathing Restrictions: None
Referrals:
Osnabrock,Ariel P., MD [Family Provider, Internal Medicine] - in less than 1 week
Prescriptions:
Continued
nitroglycerin 0.4 MG tablet, sublingual
0.4 mg sublingual [id number] PRN (Reason: chest pain) Qty: 25 10RF
aspirin 81 mg Tablet,Chewable
81 mg PO DAILY Qty: 90 0RF
tramadol 50 mg Tablet
50 mg PO DAILYPRN PRN (Reason: severe pain)
acetaminophen [Tylenol] 325 mg Tablet
650 mg PO Q6HPRN PRN (Reason: mild pain)
pyridostigmine bromide 60 mg Tablet
60 mg PO TID Qty: 30 0RF
ezetimibe 10 mg Tablet
10 mg PO DAILY Qty: 30 0RF
ticagrelor [Brilinta] 90 mg Tablet
90 mg PO BID Qty: 30 0RF
atorvastatin 10 mg Tablet
10 mg PO HS Qty: 30 0RF
doxazosin 1 mg Tablet
1 mg PO DAILY Qty: 30 0RF
therapeutic multivitamin Tablet
1 tab PO DAILY
hydrochlorothiazide 25 mg Tablet
25 mg PO DAILY
losartan 100 mg Tablet
100 mg PO DAILY
vitamin A-vitamin C-vit E-min Tablet
1 tab PO DAILY
amlodipine 10 mg tablet
10 mg PO DAILY@1999
Held
metoprolol succinate 100 mg Tablet Extended Release 24 Hr
100 mg PO BID
Hold Instructions: Do not take until seen by your primary care physician
Discontinued
dexamethasone 4 mg Tablet
4 mg PO DAILY
heparin (porcine) 5,000 unit/mL Syringe
5,000 unit SC Q12H
Discharge Orders:
Discharge Patient (As Directed); Ordered 10/29/24
Ordered By: Patti Denise
Discharge Date and Time
Print Language: MAORI
--- NOTE | 2024-10-29 14:07 | CM ---
Patient from [facility] with Dx Acute Pontine CVA, Myasthenia. Brain MRI today. Room air. PT/OT recommend acute rehab.
Met with patient, , son Dhaval, another son; the patient agrees with returning to [facility] today. IMM completed.
Spoke with [facility]; they are able to accept the patient back today. for report [phone], fax [phone].
Plan [facility] today.
--- NOTE | 2024-10-29 15:05 | W.PN.NEURO.1 ---
Today's Communication / Plan
-
.
Subjective/Objective
Subjective Data
Date of Service: October 29, 2024
Neurology Consultation note.
Mr. Macedo reports no recurrent right-sided weakness since the admission. No reports of headaches, change in vision or sensation.
Brain MRI showed no evidence of NPH conversion or infarct expansion.
PMH: PAD, CAD, HTN, DLP, polyneuropathy, history of central spinal lumbar stenosis
PSH:L CEA, posterior laminectomies at L3 and L4, ARJUN, AAA repair, bilateral cataract surgery, renal artery stenting
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
FH: CAD
All: Rosuvastatin
ROS: Constitutional: Positive for fatigue
HEENT: Positive for chronic hearing problems
Eyes: Negative. Negative for photophobia, pain and visual disturbance.
Respiratory: Negative for cough, choking and shortness of breath.
Cardiovascular: Negative for chest pain, palpitations and leg swelling.
Gastrointestinal: Negative for abdominal pain and vomiting.
Endocrine: Negative. Negative for cold intolerance.
Genitourinary: Negative for dysuria, flank pain and urgency.
Musculoskeletal: Negative for back pain, gait problem, neck pain and neck stiffness.
Skin: Negative for rash.
Allergic/Immunologic: Negative. Negative for immunocompromised state.
Neurological: Positive for fluctuating right hemiparesis
Psychiatric/Behavioral: Negative for behavioral problems, confusion and hallucinations.
General: Well developed. In no acute distress.
Cardio: Regular rate and rhythm without murmur. Extremities are without cyanosis or edema.
Neuro:
Mental Status: Alert, oriented to person, place, and date. Mildly impaired attention good fund of knowledge. Follows complex requests across the midline. Comprehension, naming, and repetition intact.
Cranial Nerves: Pupils are equally round, surgical. EOMs full. Visual tadeo full to confrontation. Mild L ptosis. No nystagmus. V1-V3 intact to light touch and pinprick bilaterally, symmetric. Face symmetric. Impaired hearing AU. The
palate elevated well. SCMs and traps 5/5. Tongue midline. Mild dysarthria.
Motor: Normal bulk and tone. No pronator or arm drift. Strength 5/5 throughout except for right triceps, deltoid�4 out of 5, right iliopsoas�4- out of 5, dorsiflexion�4 out of 5, left hip flexion�4+ out of 5. No clonus. Neck flexors/extensors
5/5.
Coordination: No dysmetria or tremor.
Gait: deferred
Assessment and Plan:
I. Exacerbation of pre-existing deficits in settings of cerebral hyperperfusion.
II. Progressive fluctuating proximal weakness and dysarthria, rule out muscular junction disorder.
III. Moderate R ICA stenosis, asymptomatic
IV. PAD. History of L ICA stenosis, s/p L CEA
V. C-spine DJD
. History of lumbar spinal stenosis, s/p remote posterior laminectomies at L3 and L4
- Continue Telemetry monitoring
- Continue Brilinta 90 mg twice daily
- Avoid cerebral hypoperfusion
- Outpatient neurology follow-up
- Case was discussed with patient's and sons present at bedside.
I personally reviewed all radiology and labs along with past medical records pertinent to current medical problems. Total time spent in patient care is 35 minutes.
Thank you for allowing us to participate in the care of this patient. Please do not hesitate to contact us with any questions or concerns
Objective Data
Vital Signs
Temp Pulse Resp BP Pulse Ox
36.8 C 62 16 148/72 99
10/29/24 11:19 10/29/24 11:19 10/29/24 11:19 10/29/24 11:19 10/29/24 11:19
Lab Results
10/28/24 14:28
10/28/24 14:28
PT 14.5 Sec (11.4-14.6) 10/28/24 14:28
INR 1.09 10/28/24 14:28
Sodium 134 mmol/L (135-145) L 10/28/24 14:28
Potassium 3.8 mmol/L (3.5-5.1) 10/28/24 14:28
BUN 29 mg/dl (9-20) H 10/28/24 14:28
Glucose 237 mg/dl (70-99) H 10/28/24 14:28
Calcium 10.0 mg/dl (8.4-10.2) 10/28/24 14:28
LDL Cholesterol, Calc 42 mg/dl 10/29/24 07:14
Patient Allergies
atorvastatin (From Lipitor) Allergy (Verified 10/26/24 22:56)
Myalgia/leg cramps
rosuvastatin (From Crestor) Allergy (Verified 10/26/24 22:56)
Myalgia/leg cramps
Vital Signs and Labs
-
Vital Signs and Labs:
Vital Signs
Temp Pulse Resp BP Pulse Ox
36.8 C 62 16 148/72 99
10/29/24 11:19 10/29/24 11:19 10/29/24 11:19 10/29/24 11:19 10/29/24 11:19
Lab Results
10/28/24 14:28
10/28/24 14:28
PT 14.5 Sec (11.4-14.6) 10/28/24 14:28
INR 1.09 10/28/24 14:28
Sodium 134 mmol/L (135-145) L 10/28/24 14:28
Potassium 3.8 mmol/L (3.5-5.1) 10/28/24 14:28
BUN 29 mg/dl (9-20) H 10/28/24 14:28
Glucose 237 mg/dl (70-99) H 10/28/24 14:28
Calcium 10.0 mg/dl (8.4-10.2) 10/28/24 14:28
LDL Cholesterol, Calc 42 mg/dl 10/29/24 07:14
Medications
-
Medications:
Generic Name Dose Route Start Last Admin
Trade Name Freq PRN Reason Stop Dose Admin
Acetaminophen 650 mg 10/28/24 18:50
Acetaminophen 650 Mg Rectal Suppository RECTAL 11/25/24 18:49
Q4HPRN PRN
RAMESH, mild pain, or temp >100.4F
Acetaminophen 650 mg 10/28/24 18:50
Acetaminophen 325 Mg Tablet PO 11/25/24 18:49
Q4HPRN PRN
RAMESH, mild pain, or temp >100.4F
Amlodipine Besylate 10 mg 10/28/24 20:00 10/28/24 20:24
Amlodipine 10 Mg Tablet PO 11/25/24 19:59 10 mg
DAILY@2000 DAVID Administration
Aspirin 81 mg 10/29/24 08:00 10/29/24 08:35
Aspirin 81 Mg Chewable Tablet PO 11/26/24 07:59 81 mg
DAILY DAVID Administration
Dexamethasone 4 mg 10/29/24 08:00 10/29/24 08:34
Dexamethasone 4 Mg Tablet PO 11/26/24 07:59 4 mg
DAILY DAVID Administration
Doxazosin Mesylate 1 mg 10/29/24 08:00 10/29/24 08:35
Doxazosin 1 Mg Tablet PO 11/26/24 07:59 1 mg
DAILY DAVID Administration
Ezetimibe 10 mg 10/29/24 08:00 10/29/24 08:35
Ezetimibe (Zetia) 10 Mg Tablet PO 11/26/24 07:59 10 mg
DAILY DAVID Administration
Heparin Sodium 5,000 units 10/28/24 20:00 10/29/24 08:35
Heparin 5,000 Units/Ml 1 Ml Vial SC 11/25/24 19:59 5,000 units
Q12 DAVID Administration
Hydrochlorothiazide 25 mg 10/29/24 08:00 10/29/24 08:35
Hydrochlorothiazide 25 Mg Tablet PO 11/26/24 07:59 25 mg
DAILY DAVID Administration
Losartan Potassium 100 mg 10/29/24 08:00 10/29/24 08:35
Losartan 100 Mg Tablet PO 11/26/24 07:59 100 mg
DAILY DAVID Administration
Nitroglycerin 0.4 mg 10/28/24 18:50
Nitroglycerin 0.4 Mg Sl Tablet SL 11/25/24 18:49
[id number] PRN
chest pain
Pyridostigmine [place] 60 mg 10/28/24 22:00 10/29/24 15:03
Pyridostigmine 60 Mg Tablet PO 11/25/24 21:59 60 mg
TID DAVID Administration
Sodium Chloride 0 flush 10/28/24 19:00
Sodium Chloride 0.9% (Flush) Syringe IV 11/25/24 18:59
PER PROTOCOL DAVID
Ticagrelor 90 mg 10/28/24 20:00 10/29/24 08:35
Ticagrelor (Brilinta) 90 Mg Tablet PO 11/25/24 19:59 90 mg
BID DAVID Administration
Tramadol HCl 50 mg 10/28/24 18:50
Tramadol Hcl 50 Mg Tablet PO 11/25/24 18:49
DAILYPRN PRN
severe pain
Home Medications
-
Home Medications
nitroglycerin 0.4 mg sublingual tablet 0.4 mg sublingual [id number] PRN chest pain #25 tabs 03/11/19
aspirin 81 mg chewable tablet 81 mg PO DAILY #90 tabs 12/03/22
tramadol 50 mg tablet 50 mg PO DAILYPRN PRN severe pain 12/07/23
acetaminophen 325 mg tablet (Tylenol) 650 mg PO Q6HPRN PRN mild pain 12/11/23
metoprolol succinate 100 mg tablet,extended release 24 hr 100 mg PO BID Blood Pressure 12/11/23
Held on 10/29/24. Instructions: Do not take until seen by your primary care physician
atorvastatin 10 mg tablet 10 mg PO HS #30 tabs 10/26/24
ezetimibe 10 mg tablet 10 mg PO DAILY #30 tabs 10/26/24
pyridostigmine bromide 60 mg tablet 60 mg PO TID #30 tabs 10/26/24
ticagrelor 90 mg tablet (Brilinta) 90 mg PO BID #30 tabs 10/26/24
amlodipine 10 mg tablet 10 mg PO DAILY@199910/28/24
hydrochlorothiazide 25 mg tablet 25 mg PO DAILY 10/28/24
losartan 100 mg tablet 100 mg PO DAILY 10/28/24
therapeutic multivitamin 1 tab PO DAILY 10/28/24
vitamin A-vitamin C-vit E-min tablet 1 tab PO DAILY 10/28/24
doxazosin 1 mg tablet 1 mg PO DAILY #30 tabs 10/29/24
[2024-10-29 15:11] VITALS: BP 130/69
--- NOTE | 2024-10-29 16:01 | PTOTSP ---
Speech therapy
Presentation: Patient was oriented, participatory and cooperative. Patient followed simple commands. Patient's speech and language appeared to be WNL during conversation.
Swallowing function: [employer] SALES REPRESENTATIVE observed patient with several bites of regular consistency solids and sips of thin liquids (straw) in which patient appeared to tolerate as he did not exhibit any overt clinical s/sx of aspiration or difficulty with
mastication/ manipulation. Patient denied any dysphagia complaints.
Per RN, patient tolerated meal tray (reg/thin) and medications whole with thin liquids.
Recommendations:
1) Regular consistency solids and thin liquids
2) Standard aspiration precautions
3) Medications as tolerated
Plan: [employer] REPRESENTATIVE will continue to follow to ensure tolerance; pending hospitalization.
== END 2024-10-29 17:25 ==
LOC: 4 EAST ACU 17:44
PROVIDERS: Emergency Medicine; ADMITTING PHYSICIAN Internal Medicine; ATTENDING PHYSICIAN Internal Medicine; EMERGENCY PHYSICIAN Emergency Medicine; FAMILY PHYSICIAN Internal Medicine
DX: G93.6 Cerebral edema (principal); R53.1 Weakness; R29.810 Facial weakness; M48.061 Spinal stenosis, lumbar region without neurogenic claudication; I25.10 Atherosclerotic heart disease of native coronary artery without angina pectoris; E78.00 Pure hypercholesterolemia, unspecified; I10 Essential (primary) hypertension; G31.9 Degenerative disease of nervous system, unspecified; M50.022 Cervical disc disorder at C5-C6 level with myelopathy; I73.9 Peripheral vascular disease, unspecified; M48.02 Spinal stenosis, cervical region; M25.78 Osteophyte, vertebrae; I65.21 Occlusion and stenosis of right carotid artery; M47.12 Other spondylosis with myelopathy, cervical region; D64.9 Anemia, unspecified; R00.1 Bradycardia, unspecified; I44.4 Left anterior fascicular block; R73.9 Hyperglycemia, unspecified; Z86.79 Personal history of other diseases of the circulatory system; Z86.73 Personal history of transient ischemic attack (TIA), and cerebral infarction without residual deficits; Z96.643 Presence of artificial hip joint, bilateral; Z88.8 Allergy status to other drugs, medicaments and biological substances; Z79.02 Long term (current) use of antithrombotics/antiplatelets; Z79.899 Other long term (current) drug therapy; Z79.82 Long term (current) use of aspirin; Z82.49 Family history of ischemic heart disease and other diseases of the circulatory system
CPT/HCPCS: 0042T; 70450; 70496; 70498; 70551; 80053; 80061; 82962; 85025; 85610; 92610; 93005; 97163; 97166; 99291; G0378; Q9967

== ENCOUNTER → 2024-12-15 07:55 | Outpatient (REF) | payer MEDICARE, OTHER, SELFPAY | LOC: MRI 3T 07:55 | PROVIDERS: ATTENDING PHYSICIAN Internal Medicine | DX: M48.062 Spinal stenosis, lumbar region with neurogenic claudication (principal); M48.061 Spinal stenosis, lumbar region without neurogenic claudication | CPT/HCPCS: 72148 ==

== ENCOUNTER 2025-01-04 13:09 | Outpatient (RCR) | payer MEDICARE, OTHER, SELFPAY | END 2025-01-04 23:59 | disposition home or self-care (01) | LOC: RPT 13:09 | PROVIDERS: ATTENDING PHYSICIAN Physical Medicine & Rehabilitation; PRIMARYCARE PHYSICIAN Internal Medicine | DX: I69.351 Hemiplegia and hemiparesis following cerebral infarction affecting right dominant side (principal); Z73.6 Limitation of activities due to disability; R26.89 Other abnormalities of gait and mobility | CPT/HCPCS: 97010; 97110; 97112; 97116; 97163; 97167; 97530; 97535; 97537 ==

== ENCOUNTER → 2025-01-24 09:31 | Outpatient (REF) | payer MEDICARE, OTHER, SELFPAY | LOC: RAD 09:31 | PROVIDERS: ATTENDING PHYSICIAN Nurse Practitioner Adult Health; FAMILY PHYSICIAN Internal Medicine | DX: I65.23 Occlusion and stenosis of bilateral carotid arteries (principal); I71.40 Abdominal aortic aneurysm, without rupture, unspecified | CPT/HCPCS: 74174; 93880; Q9967 ==

== ENCOUNTER 2025-02-06 09:27 | Outpatient (RCR) | payer MEDICARE, OTHER, SELFPAY | END 2025-02-06 23:59 | disposition home or self-care (01) | LOC: RST 09:27 | PROVIDERS: ATTENDING PHYSICIAN Physical Medicine & Rehabilitation; PRIMARYCARE PHYSICIAN Internal Medicine | DX: I69.351 Hemiplegia and hemiparesis following cerebral infarction affecting right dominant side (principal); Z73.6 Limitation of activities due to disability; R26.89 Other abnormalities of gait and mobility | CPT/HCPCS: 97110; 97112; 97116; 97530; 97535; 97537 ==

== ENCOUNTER 2025-03-08 13:15 | Outpatient (RCR) | payer MEDICARE, OTHER, SELFPAY | END 2025-03-08 23:59 | disposition home or self-care (01) | LOC: RST 13:15 | PROVIDERS: ATTENDING PHYSICIAN Physical Medicine & Rehabilitation; PRIMARYCARE PHYSICIAN Internal Medicine | DX: I69.351 Hemiplegia and hemiparesis following cerebral infarction affecting right dominant side (principal); Z73.6 Limitation of activities due to disability; R26.89 Other abnormalities of gait and mobility; Z98.890 Other specified postprocedural states | CPT/HCPCS: 97110; 97112; 97116; 97140; 97530; 97535; 97537 ==

== ENCOUNTER → 2025-03-17 11:25 | Outpatient (REF) | payer MEDICARE, OTHER, SELFPAY | LOC: RAD 11:25 | PROVIDERS: ATTENDING PHYSICIAN Nurse Practitioner Adult Health; FAMILY PHYSICIAN Internal Medicine; OTHER PHYSICIAN Radiology Diagnostic Radiology | DX: I71.40 Abdominal aortic aneurysm, without rupture, unspecified (principal) | CPT/HCPCS: 74174; Q9967 ==

== ENCOUNTER 2025-04-05 06:41 | Outpatient (RCR) | payer MEDICARE, OTHER, SELFPAY | END 2025-04-05 23:59 | disposition home or self-care (01) | LOC: RST 06:41 | PROVIDERS: ATTENDING PHYSICIAN Physical Medicine & Rehabilitation; PRIMARYCARE PHYSICIAN Internal Medicine | DX: I69.351 Hemiplegia and hemiparesis following cerebral infarction affecting right dominant side (principal); Z73.6 Limitation of activities due to disability; R26.89 Other abnormalities of gait and mobility; Z98.890 Other specified postprocedural states | CPT/HCPCS: 97110; 97112; 97116; 97530; 97535; 97537 ==

== ENCOUNTER 2025-05-10 07:31 | Outpatient (RCR) | payer MEDICARE, OTHER, SELFPAY | END 2025-05-10 23:59 | disposition home or self-care (01) | LOC: RST 07:31 | PROVIDERS: ATTENDING PHYSICIAN Physical Medicine & Rehabilitation; PRIMARYCARE PHYSICIAN Internal Medicine | DX: I69.351 Hemiplegia and hemiparesis following cerebral infarction affecting right dominant side (principal); Z73.6 Limitation of activities due to disability; R26.89 Other abnormalities of gait and mobility; Z98.890 Other specified postprocedural states | CPT/HCPCS: 97010; 97110; 97112; 97116; 97140; 97530; 97535; 97537 ==